=== PATIENT | male | born 1980 | race Caucasian/White ===

== ENCOUNTER 2023-01-02 14:29 | Outpatient (OUT) | payer OTHER, BC, SELFPAY ==
--- NOTE | 2023-01-02 | CONS_ITS ---
CONSULTATION DATE: ??01/02/2023 TO:? Dr. Asher CHIEF COMPLAINT:? Left buttock pain, left hip pain. HISTORY OF PRESENT ILLNESS:? Review of systems, past medical/surgical history were obtained and documented on the health questionnaire and is available upon request. This is a 42-year-old male who reports having pain starting approximately 1-2 weeks ago.? It occurred spontaneously and increased gradually to is present to state, where he complains of severe sharp, shooting pain starting his in left groin area, radiating to the left buttock area.? He states is increases with transitioning maneuvers and weight bearing maneuvers.? He feels most comfortable in the semi-recumbent position.? He denies any change in bowel and bladder habits or new sensorimotor changes in the lower extremities. EXAMINATION:? Notable for patient having no clinical radiculopathy or myelopathy involving the lower extremities.? Nothing to suggest lumbar facet loading pain clinically or SI joint dysfunction clinically.? He did appear to have an exquisitely positive left sided FABERs sign.? He also had significant myofascial spasm of the left gluteus medius muscle.? I could not appreciate any piriformis dysfunction on today?s visit. IMPRESSION:? Our impression is patient appears to have chronic pain secondary to left hip joint related pain clinically, possibly a labral tear; left gluteus medius and myofascial spasm.? RECOMMENDATIONS:? I have placed the patient on baclofen 10 mg pills, half a pill to one pill at h.s., ibuprofen 800 mg t.i.d. as tolerated, aquatic therapy, plain films of the left hip, as well as MRI of the left hip.? We have also recommended a trigger point injection to his left gluteus medius; of note, status post which his pain was reduced significantly.? As part of providing excellent, safe, comprehensive care, the following was completed at our patient's visit: 1. A medication reconciliation and review to ensure accurate knowledge of current/active medications, including asking our patients to inform us about any pwig-xoj-ufkxcoo medications or herbal remedies/nutritional supplements/alternative remedies. 2. A review to specifically ensure our patients have had annual screening for: elevated body mass index (BMI, see intake chart for exact total), tobacco use, screening for depression, and screening for unhealthy alcohol use.? When screening is concerning, patients are provided with education and the specific recommendation to discuss the concerning health issue and treatment options with their primary care provider. [place]
--- NOTE | 2023-01-02 | CONS_ITS ---
PROCEDURE DATE: ??01/02/2023 PROCEDURE:? Left sided trigger point injection left gluteus medius. PREOPERATIVE DIAGNOSIS:? Myofascial spasm of the left gluteus medius, left hip pain. POSTOPERATIVE DIAGNOSIS:? Myofascial spasm of the left gluteus medius, left hip pain. SOLUTION USED FOR INJECTION:? 2 mL of 2% lidocaine, 2 mL of 0.25% Marcaine, 40 mg of Kenalog, total of 5 mL and 2.5 mL used for injection. IMMEDIATE COMPLICATIONS:? None. PROCEDURE:? After informed consent was obtained from the patient, placed in the prone position. ?Skin overlying the area was prepped with alcohol.? A 22 gauge spinal needle was inserted over the area and directed towards the left gluteus medius.? After encountering same, patient had a positive twitch response, at which point we injected 2.5 mL of solution.? No indication of intravascular or intraneural needle tip placement or injection.? Patient reports reduction of pain post procedurally.?? MTDD
== END 2023-01-02 14:30 | disposition home or self-care (01) ==
LOC: PM 14:38
PROVIDERS: PCP Specialist; Visit Provider Anesthesiology Pain Medicine
DX: M62.838 Other muscle spasm (principal); M25.552 Pain in left hip; G89.29 Other chronic pain
CPT/HCPCS: 20552

== ENCOUNTER 2023-02-17 09:10 | Outpatient (OUT) | payer OTHER, BC, SELFPAY ==
[2023-02-17 09:30] LABS: Basophils Percent Auto 0.5 % (0.2-2.0); Eosinophils Absolute Auto 0.2 10^3/uL (0.0-0.7); Eosinophils Percent Auto 2.9 % (0.9-7.0); Hematocrit 44.9 % (42.0-54.0); Hemoglobin 15.1 g/dL (14.0-18.0); Immature Granulocytes Abs Auto 0.03 10^3/uL (0.00-0.03); Immature Granulocytes Pct Auto 0.4 % (0.0-0.5); Lymphocytes Absolute Auto 2.9 10^3/uL (1.2-3.8); Lymphocytes Percent Auto 34.9 % (20.5-60.0); Mean Corpuscular HGB Conc 33.6 g/dL (29.9-35.2); Mean Corpuscular Hemoglobin 30.2 pg (25.9-34.0); Mean Corpuscular Volume 89.8 fL (80.0-94.0); Mean Platelet Volume 10.7 fL (9.5-13.5); Monocytes Absolute Auto 0.4 10^3/uL (0.3-0.8); Monocytes Percent Auto 5.2 % (1.7-12.0); Neutrophils Absolute Auto 4.7 10^3/uL (1.4-6.5); Neutrophils Percent Auto 56.1 % (43.0-75.0); Platelet Count 243 10^3/uL (150-450); Red Cell Distribution Width 12.2 % (11.0-15.0); White Blood Count 8.4 10^3/uL (4.0-11.0)
[2023-02-17 09:54] LABS: Estimated Average Glucose 120 mg/dL; Glycohemoglobin A1C 5.8 % (4.5-6.2)
[2023-02-17 10:04] LABS: Alanine Aminotransferase 51 U/L (16-63); Albumin Globulin Ratio 0.9; Albumin Level 3.4 g/dL (3.4-5.0); Alkaline Phosphatase 81 U/L (46-116); Anion Gap 10.7; Aspartate Amino Transferase 21 U/L (15-37); BUN Creatinine Ratio 20.6; Bilirubin Direct 0.1 mg/dL (0.0-0.2); Bilirubin Total 0.6 mg/dL (0.2-1.0); Calcium 8.7 mg/dL (8.5-10.1); Carbon Dioxide 34.5 mmol/L (21.0-32.0); Chloride 104 mmol/L (98-107); Chol HDL Ratio 3.2; Cholesterol 168 mg/dL (<=200); Estimated GFR (African America >60 (>=60); Estimated GFR (Non-African Ame >60 (>=60); Globulin 3.7 g/dL; Glucose 105 mg/dL (74-106); HDL Cholesterol 53 mg/dL (40-60); LDL Cholesterol Calculated 102.8 mg/dL; Potassium 4.2 mmol/L (3.5-5.1); Sodium 145 mmol/L (136-145); Thyroid Stimulating Hormone 1.585 uIU/mL (0.358-3.740); Total Protein 7.1 g/dL (6.4-8.2); Triglycerides 61 mg/dL (<=150); VLDL CHOLESTEROL 12.2 mg/dL
[2023-02-17 11:11] LABS: Prostate Specific Antigen Scrn 1.13 ng/mL (<=4.00)
== END 2023-02-17 09:11 | disposition home or self-care (01) ==
PROVIDERS: PCP Specialist; Visit Provider Family Medicine
DX: Z00.00 Encounter for general adult medical examination without abnormal findings (principal); Z12.5 Encounter for screening for malignant neoplasm of prostate
CPT/HCPCS: 36415; 80048; 80061; 80076; 83036; 84443; 85025; G0103

== ENCOUNTER 2023-07-28 09:15 | Outpatient (OUT) | payer OTHER, SELFPAY ==
--- NOTE | 2023-07-28 | XR_ITS ---
The [place] [id number] Patient Name: ROLLY LANDA MRN: [id number] date: 1980 Sex: M Assigned Patient Location: [facility] Current Patient Location: [facility] Accession/Order Number: [id number] Exam Date: 07/28/2023 09:30 Report Date: 07/30/2023 10:11 At the request of: YANELI FISHER Procedure: XR lumbar spine 6V w bending EXAMINATION: XR lumbar spine 6V w bending HISTORY: low back pain COMPARISON: No relevant comparison available. FINDINGS: BONES: Mild degenerative facet arthropathy L4-5, L5-S1. No fracture, spondylolisthesis, bone lesion. No change in alignment during flexion and extension. DISC SPACES: Slight narrowing L5-S1. PARASPINOUS: Negative. No paraspinous abnormality is seen. OTHER: Negative. XR/XR lumbar spine 6V w bending IMPRESSION: 1. 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 Electronically authenticated by: JARON LOONEY Date: 07/30/2023 10:11
--- NOTE | 2023-07-28 | XR_ITS ---
The [address] [address] Patient Name: ROLLY LANDA MRN: [id number] date: 1980 Sex: M Assigned Patient Location: [facility] Current Patient Location: Accession/Order Number: [id number] Exam Date: 07/28/2023 09:30 Report Date: 07/30/2023 09:24 At the request of: YANELI FISHER Procedure: XR hip LT min 2V PROCEDURE: XR hip LT min 2V HISTORY: left hip pain COMPARISON: None. FINDINGS: BONES:No fracture, acute abnormality, or significant arthropathy. SOFT TISSUES:No visible soft tissue swelling. EFFUSION:None visible. OTHER: Negative. XR/XR hip LT min 2V IMPRESSION: 1. No acute bone abnormality or significant degenerative changes of the left hip. Electronically authenticated by: JARON LOONEY Date: 07/30/2023 09:24
--- OUTSIDE RECORDS SUMMARY | 2023-07-28 09:20 | XMS_ITS | CCD ---
Author Organization [facility] Care Team Providers Care Valet Cashier Name Role Phone ANANDA, DR CHANTELL Walter Primary Care Unavailable JENNIFER MACIAS Attending Unavailable JENNIFER MACIAS Consulting Unavailable JENNIFER MACIAS Admitting Unavailable REQUEST, NONE LISTED Admitting Unavaila ble ANANDA, DR CHANTELL Walter Primary Care Unavailable REQUEST, DR WALL LISTED Attending Unavaila ble REQUEST, NONE LISTED Consulting Unavaila sofi MALAVE, DR CHANTELL Walter Attending Unavailable ANANDA, DR CHANTELL Walter Consulting Unavailable ANANDA, DR CHANTELL Walter Primary Care Unavailable ANANDA, DR CHANTELL Walter Admitting Unavailable KELSI SILVA Attending Unavailable Problems Problem Classification Problem Date Documented Da te Episodic/Chronic Other screening for suspected conditions (not mental disorders or infectious disease) (1 source) Encounter for screening for malignant neoplasm of prostate; Translations: [ENC SCREEN MALIG NEOPLASM PROSTATE] Onset: 10-25-2020 Episodic Results Test Name Value Interpretation Reference Range Facil ity CBC AUTO DIFFon 10-20-2020 BASO # 0.0 103/ul Normal 0.0-0.1 [facility] Comment on above: Performed By: #### C BC #### [facility] [address], [place] [address] Sara Angie Basophils/100 WBC (Bld) 0.4 % Normal 0.2-2.0 [facility] Comment on above: Performed By: #### C BC #### [facility] [address], [place] [address] Sara Angie EO # 0.2 103/ul Normal 0.0-0.7 [facility] Comment on above: Performed By: #### C BC #### [facility] [address] [place] [id number] Sara Angie Eosinophils/100 WBC (Bld) 3.1 % Normal 0.9-7.0 [facility] Comment on above: Performed By: #### C BC #### [facility] [address] [place], [place] [id number] Sara Angie Erythrocyte distribution width (RBC) [Ratio] 12.8 % Normal 11.0-15.0 [facility] Comment on above: Performed By: #### C BC #### [facility] [address] [place], [place] [id number] Sara Angie Hematocrit (Bld) [Volume fraction] 44.8 % Normal 42.0-54.0 [facility] Comment on above: Performed By: #### C BC #### [facility] [address] [place], [place] [address] Sara Angie Hemoglobin (Bld) [Mass/Vol] 14.8 g/dL Normal 14.0-18.0 [facility] Comment on above: Performed By: #### C BC #### [facility] [address] [place] [address] Sara Angie IG # 0.02 10e3/ul Normal 0.00-0.03 [facility] Comment on above: Performed By: #### C BC #### [facility] [address] [place] [address] Sara Angie IG % 0.3 % Normal 0.0-0.5 [facility] Comment on above: Performed By: #### C BC #### [facility] [address] [place] [address] Sara Angie LYMPH # 2.5 103/ul Normal 1.2-3.8 [facility] Comment on above: Performed By: #### C BC #### [facility] [address] [place], [place] [address] Sara Angie Lymphocytes/100 WBC (Bld) 33.4 % Normal 20.5-60.0 [facility] Comment on above: Performed By: #### C BC #### [facility] [address] [place], [place] [address] Sara Angie MANUAL DIFF REQ NO Normal [facility] Comment on above: Performed By: #### C BC #### [facility] [address] [place], [place] [address] Sara Angie MCH (RBC) [Entitic mass] 29.2 pg Normal 25.9-34.0 [facility] Comment on above: Performed By: #### C BC #### [facility] [address] [place], [place] [address] Sara Adams MCHC (RBC) [Mass/Vol] 33.0 g/dL Normal 29.9-35.2 [facility] Comment on above: Performed By: #### C BC #### [facility] [address] [place], [place] [address] Saramalachi Adams MCV (RBC) [Entitic vol] 88.4 fL Normal 80.0-94.0 [facility] Comment on above: Performed By: #### C BC #### [facility] [address] [place], [place] [address] Saramalachi Adams MONO # 0.5 103/ul Normal 0.3-0.8 [facility] Comment on above: Performed By: #### C BC #### [facility] [address] [place], [place] [address] Sara Angie Monocytes/100 WBC (Bld) 7.0 % Normal 1.7-12.0 [facility] Comment on above: Performed By: #### C BC #### [facility] [address] [place], [place] [address] Saramalachi Duranen NEUT # 4.2 103/ul Normal 1.4-6.5 [facility] Comment on above: Performed By: #### C BC #### [facility] [address] [place], [place] [address] Saramalachi Adams Neutrophils/100 WBC (Bld) 55.8 % Normal 43.0-75.0 [facility] Comment on above: Performed By: #### C BC #### [facility] [address] [place], [place] [address] Sara Angie Platelet mean volume (Bld) [Entitic vol] 10.7 fL Normal 9.5-13.5 [facility] Comment on above: Performed By: #### C BC #### [facility] [address] [place], [place] [address] Sara Angie PLT 239 103/ul Normal 150-450 [facility] Comment on above: Performed By: #### C BC #### [facility] [address] [place] [phone] Sara Angie RBC 5.07 106/ul Normal 4.70-6.10 [facility] Comment on above: Performed By: #### C BC #### [facility] [address], [place] [address] Sara Angie WBC 7.5 103/ul Normal 4.0-11.0 [facility] Comment on above: Performed By: #### C BC #### [facility] [address], [place] [address] Saramalachi Adams GLYCOHEMOGLOBIN A1Con 2020 ADA RECOMMENDATION ADA THERAPEUTIC TARGET 6.0 - 7.0 ACTION SUGGESTED > 7.0 Normal [facility] Comment on above: Performed By: #### A 1C #### [facility] [address] [place], [place] [address] Sara Angie Glucose [Mass/Vol] 120 mg/dL Normal [facility] Comment on above: Performed By: #### A 1C #### [facility] [address] [place] [phone] Sara Angie HbA1c (Bld) [Mass fraction] 5.8 % Normal <=6.0 [facility] Comment on above: Performed By: #### A 1C #### [facility] [address] [place], [place] [address] Saramalachi Adams LIPID PROFILEon 10-20-2020 CHOL-HDL RATIO NORM SEE BELOW Normal [facility] Comment on above: Result Comment: 3.3 - 4.4 LOW RISK 4.4 - 7.1 AVERAGE RISK 7.1 - 11.0 MODERATE RISK >11.0 HIGH RISK Performed By: #### C MP, LIPID, PSASC #### [facility] [address] [place] [phone] Sara Angie Cholesterol [Mass/Vol] 166 mg/dL Normal <=200 [facility] Comment on above: Performed By: #### C MP, LIPID, PSASC #### [facility] [address] [place] [id number] Sara Angie Cholesterol in HDL [Mass/Vol] 46 mg/dL Normal [facility] Comment on above: Performed By: #### C MP, LIPID, PSASC #### [facility] [address] [place] [phone] Sara Angie Cholesterol in LDL [Mass/Vol] 104.6 mg/dL Normal [facility] Comment on above: Performed By: #### C MP, LIPID, PSASC #### [facility] [address] [place] [phone] Sara Angie Cholesterol.total/Cho lesterol in HDL [Mass ratio] 3.6 {ratio} Normal [facility] Comment on above: Performed By: #### C MP, LIPID, PSASC #### [facility] [address] [place] [address] Sara Angie HDL NORMAL > or = 60 mg/dl - LOW CARDIOVASCULAR RISK <40 mg/dl - HIGH CARDIOVASCULAR RISK Normal [facility] Comment on above: Performed By: #### C MP, LIPID, PSASC #### [facility] [address] [place] [address] Sara Angie LDL CALC NORMAL SEE BELOW Normal [facility] Comment on above: Result Comment: <100 mg/dl OPTIMAL 100 - 129 mg/dl NEAR OR ABOVE OPTIMAL 130 - 159 mg/dl BORDERLINE HIGH 160 - 189 mg/dl HIGH >190 mg/dl VERY HIGH Performed By: #### C MP, LIPID, PSASC #### [facility] [address] [place] [address] Sara Angie Triglyceride [Mass/Vol] 77 mg/dL Normal <=150 [facility] Comment on above: Performed By: #### C MP, LIPID, PSASC #### [facility] [address] [place] [phone] Sara Angie VLDL CALC 15.4 mg/dL Normal [facility] Comment on above: Performed By: #### C MP, LIPID, PSASC #### [facility] [address] [place] [address] Sara Angie PROF 14(COMP METB)on 021 Albumin [Mass/Vol] 3.4 g/dL Critically low 3.5-5.0 [facility] Comment on above: Performed By: #### C MP, LIPID, PSASC #### [facility] [address] [place] [phone] Sara Angie Albumin/Globulin [Mass ratio] 0.8 {ratio} Normal [facility] Comment on above: Performed By: #### C MP, LIPID, PSASC #### [facility] [address] [place] [phone] Sara Angie ALP [Catalytic activity/Vol] 80 U/L Normal 38-126 [facility] Comment on above: Performed By: #### C MP, LIPID, PSASC #### [facility] [address] [place] [phone] Sara Angie ALT [Catalytic activity/Vol] 55 U/L Normal 21-72 [facility] Comment on above: Performed By: #### C MP, LIPID, PSASC #### [facility] [address] [place] [address] Sara Angie Anion gap [Moles/Vol] 11.4 mmol/L Normal [facility] Comment on above: Performed By: #### C MP, LIPID, PSASC #### [facility] [address] [place], [place] [address] Sara Angie AST [Catalytic activity/Vol] 26 U/L Normal 17-59 [facility] Comment on above: Performed By: #### C MP, LIPID, PSASC #### [facility] [address] [place] [id number] Sara Angie Bilirubin [Mass/Vol] 0.5 mg/dL Normal 0.2-1.3 [facility] Comment on above: Performed By: #### C MP, LIPID, PSASC #### [facility] [address] [place] [address] Sara Angie Calcium [Mass/Vol] 9.1 mg/dL Normal 8.4-10.2 [facility] Comment on above: Performed By: #### C MP, LIPID, PSASC #### [facility] [address] [place] [address] Sara Angie Chloride [Moles/Vol] 106 mmol/L Normal 98-107 [facility] Comment on above: Performed By: #### C MP, LIPID, PSASC #### [facility] [address] [place] [address] Sara Angie CO2 [Moles/Vol] 30.9 mmol/L Critically high 22.0-30.0 [facility] Comment on above: Performed By: #### C MP, LIPID, PSASC #### [facility] [address] [place] [address] Sara Angie Creatinine [Mass/Vol] 0.95 mg/dL Normal 0.66-1.25 [facility] Comment on above: Performed By: #### C MP, LIPID, PSASC #### [facility] [address] [place] [address] Sara Angie EGFR-AF CROATIAN >60 Normal >=60 [facility] Comment on above: Performed By: #### C MP, LIPID, PSASC #### [facility] [address] [place] [address] Sara Angie EGFR-NON AF CROATIAN >60 Normal >=60 [facility] Comment on above: Performed By: #### C MP, LIPID, PSASC #### [facility] [address] [place] [address] Sara Angie Globulin (S) [Mass/Vol] 4.1 g/dL Normal [facility] Comment on above: Performed By: #### C MP, LIPID, PSASC #### [facility] [address] [place] [address] Sara Angie Glucose [Mass/Vol] 106 mg/dL Normal 74-106 [facility] Comment on above: Performed By: #### C MP, LIPID, PSASC #### [facility] [address] [place] [address] Sara Angie Potassium [Moles/Vol] 4.3 mmol/L Normal 3.4-5.0 [facility] Comment on above: Performed By: #### C MP, LIPID, PSASC #### [facility] [address] [place] [address] Sara Angie Protein [Mass/Vol] 7.5 g/dL Normal 6.1-8.2 [facility] Comment on above: Performed By: #### C MP, LIPID, PSASC #### [facility] [address], [place] [address] Sara Angie Sodium [Moles/Vol] 144 mmol/L Normal 137-145 [facility] Comment on above: Performed By: #### C MP, LIPID, PSASC #### [facility] [address], [place] [address] Sara Angie Urea nitrogen [Mass/Vol] 11.0 mg/dL Normal 9.0-20.0 [facility] Comment on above: Performed By: #### C MP, LIPID, PSASC #### [facility] [address] [place] [address] Sara Angie Urea nitrogen/Creatinine [Mass ratio] 11.6 mg/mg Normal [facility] Comment on above: Performed By: #### C MP, LIPID, PSASC #### [facility] [address], [place] [address] Sara Angie Encounters Encounter Date Encounter Type Care Provider Facility Start: 03-27-2023 End: 03-27-2023 ambulatory KELSI SILVA Not Available Start: 10-25-2020 Encounter for genera l adult medical examination without abnormal findings DR CHANTELL MALAEV [facility] Start: 10-20-2020 End: 10-21-[address] CHANTELL MALAVE Facility:[facility] Start: 10-20-2020 End: 10-21-2020 Encounter for general adult medical examination without abnormal findings DR CHANTELL MALAVE Facility:[facility] Start: 08-19-2020 End: 08-20-[address] CHANTELL MALAVE Facility:[facility] Start: 07-27-2020 End: 07-28-[address] WALL LISTED REQUEST Facility:[facility] Procedures Date Procedure Procedure Detail Performing Clinician Start: 10-20-[address] CHANTELL BERNARD Comment on above: Performed By: #### C MP, LIPID, PSASC #### [facility] [address], [place] [address] Sara Angie Payers Date Payer Category Payer Unknown [id number] 1980 Unknown [id number] 1959 Self-pay 1959 Unknown [id number] Unknown [id number] [id number] Unknown [id number] Summary Purpose Family History No Family History Records FoundNo Family History Records Found Advance Directives No Advanced Directives Records FoundNo Advanced Directives Records Found Additional Source Comments (unrecognized sect ion and content) No Status Records FoundNo Status Records Found INFORMATION SOURCE (unrecogn ized section and content) DATE CREATED AUTHOR 10/26/2020 [facility] DATE CREATED AUTHOR 'S ORGANIZ ATION 03/29/2023 [facility] EPIC FOR RECORDS PERTAINING TO PATIENTS WHO ARE OR HAVE BEEN ENROLLED IN A CHEMICAL DEPENDENCY/SUBSTANCEABUSE PROGRAM, SOME INFORMATION MAY BE OMITTED. This clinical summary was aggregated from multiple sources. Caution should be exercised in using it in the provision of clinical care. This summary normalizes information from multiple sources, and as a consequence, information in this document may materially change the coding, format and clinical context of patient data. In addition, data may be omitted in some cases. CLINICAL DECISIONS SHOULD BE BASED ON THE PRIMARY CLINICAL RECORDS. [facility] [employer] provides no warranty or guarantee of the accuracy or completeness of information in this document.
== END 2023-07-28 09:16 | disposition home or self-care (01) ==
LOC: RAD 09:17
PROVIDERS: PCP Family Medicine; Visit Provider Anesthesiology Pain Medicine
DX: M54.50 Low back pain, unspecified (principal); M25.552 Pain in left hip
CPT/HCPCS: 72114; 73502

== ENCOUNTER 2023-07-31 14:49 | Outpatient (OUT) | payer OTHER, SELFPAY ==
--- NOTE | 2023-07-31 | CONS_ITS ---
CONSULTATION DATE: 07/31/2023 TO: Orville Asher M.D. HISTORY: Patient returns today complaining of pain in his left hamstring area, just above his knee. He describes the pain as being 3-4/10 pain, described as an annoying, severe, tingling type of pain, increased apparently when standing and at times walking. Feels most comfortable sitting. Denies any change in bowel and bladder habits, but he reports tingling and numbness of his left hamstring area. CURRENT MEDICATIONS: Include ibuprofen 800 mg daily p.r.n. and baclofen 10 mg daily p.r.n. EXAMINATION: Notable for patient having some very mild weakness of his left extensor hallucis. Straight leg raise was negative. Equivocally depressed left Achilles reflex. No signs consistent with myelopathy. IMPRESSION: Our impression is patient with chronic pain secondary to L5 radicular signs. RECOMMENDATIONS: I have recommended he initiate Zonegran 50 mg, one up to three pills at h.s. Will titrate this over a period of three weeks. Also, physical therapy for a home exercise program. Will follow up with the patient via telephone in one week?s time or sooner if needed. As part of providing excellent, safe, comprehensive care, the following was completed at our patient's visit: 1. A medication reconciliation and review to ensure accurate knowledge of current/active medications, including asking our patients to inform us about any vnuk-urv-tnkegac medications or herbal remedies/nutritional supplements/alternative remedies. 2. A review to specifically ensure our patients have had annual screening for: elevated body mass index (BMI, see intake chart for exact total), tobacco use, screening for depression, and screening for unhealthy alcohol use. When screening is concerning, patients are provided with education and the specific recommendation to discuss the concerning health issue and treatment options with their primary care provider. [place]
== END 2023-07-31 14:50 | disposition home or self-care (01) ==
PROVIDERS: PCP Family Medicine; Visit Provider Anesthesiology Pain Medicine
DX: M54.16 Radiculopathy, lumbar region (principal); M54.50 Low back pain, unspecified
CPT/HCPCS: G0463

== ENCOUNTER 2023-10-25 14:43 | Outpatient (OUT) | payer OTHER, SELFPAY ==
--- NOTE | 2023-10-25 | XR_ITS ---
The [address] [address] Patient Name: ROLLY LANDA MRN: [id number] date: 1980 Sex: M Assigned Patient Location: Current Patient Location: Accession/Order Number: [id number] Exam Date: 10/25/2023 14:52 Report Date: 10/25/2023 15:49 At the request of: UZIEL QUINTANILLA Procedure: XR foot MANJINDER min 3V EXAMINATION: XR foot MANJINDER min 3V HISTORY: BILATERAL FOOT PAIN COMPARISON: No relevant comparison available. FINDINGS: RIGHT FINDINGS: BONES: No acute fracture or dislocation. Moderate enthesopathic spurring of the calcaneus at the Achilles and plantar insertions. Degenerative changes with mid foot with marginal osteophyte formation SOFT TISSUES: Negative. No visible soft tissue swelling. OTHER: Negative. LEFT FINDINGS: BONES: No acute fracture or dislocation. Moderate enthesopathic spurring of the calcaneus at the Achilles and plantar insertions. Degenerative changes with mid foot with marginal osteophyte formation SOFT TISSUES: Negative. No visible soft tissue swelling. OTHER: Negative. XR/XR foot MANJINDER min 3V IMPRESSION: Moderate bilateral calcaneal enthesopathy Electronically authenticated by: FAVIO PERES Date: 10/25/2023 15:49
== END 2023-10-25 14:44 | disposition home or self-care (01) ==
LOC: EC 14:43
PROVIDERS: PCP Family Medicine; Visit Provider Physician Assistant
DX: M79.672 Pain in left foot (principal); M79.671 Pain in right foot
CPT/HCPCS: 73630

== ENCOUNTER 2023-10-29 10:17 | Outpatient (RCR) | payer OTHER, SELFPAY | END 2023-12-14 17:19 | disposition home or self-care (01) | LOC: PT 10:17 | PROVIDERS: PCP Family Medicine; Visit Provider Physician Assistant | DX: M79.672 Pain in left foot (principal); M76.62 Achilles tendinitis, left leg; M76.61 Achilles tendinitis, right leg; M24.575 Contracture, left foot; M24.574 Contracture, right foot | CPT/HCPCS: 20560; 20561; 97026; 97110; 97112; 97140; 97162 ==

== ENCOUNTER 2023-12-17 12:51 | Outpatient (OUT) | payer OTHER, SELFPAY ==
--- NOTE | 2023-12-17 13:00 | XR_ITS ---
The [address] [address] Patient Name: ROLLY LANDA MRN: [id number] date: 1980 Sex: M Assigned Patient Location: [facility] Current Patient Location: Accession/Order Number: [id number] Exam Date: 12/17/2023 13:15 Report Date: 12/18/2023 11:02 At the request of: YANELI FISHER Procedure: XR knee LT 4V PROCEDURE: XR knee LT 4V HISTORY: Left Knee Pain COMPARISON: None. FINDINGS: BONES:Degenerative enthesophytes along inferior margin of patella at patellar tendon insertion which may be fractured. SOFT TISSUES:No visible soft tissue swelling. EFFUSION:None visible. OTHER: Negative. XR/XR knee LT 4V IMPRESSION: 1. Patient's tender lump corresponds to a degenerative enthesophyte along the anterior inferior margin of the patella. There is a thin lucency through it which may represent a fracture line (history describes no known injury), or this could represent summation artifact from a developmental cleft within the enthesophyte. 2. Otherwise unremarkable knee. Electronically authenticated by: JARON LOONEY Date: 12/18/2023 11:02
--- OUTSIDE RECORDS SUMMARY | 2023-12-17 13:18 | XMS_ITS | CCD ---
Author Organization [facility] Care Team Providers Care Bicycle Repairman Name Role Phone ANANDA, DR CHANTELL Walter Primary Care Unavailable JENNIFER MACIAS Attending Unavailable JENNIFER MACIAS Consulting Unavailable JENNIFER MACIAS Admitting Unavailable REQUEST, NONE LISTED Admitting Unavaila ble ANANDA, DR CHANTELL Walter Primary Care Unavailable REQUEST, DR WALL LISTED Attending Unavaila ble REQUEST, NONE LISTED Consulting Unavaila ble ANANDA, DR CHANTELL Walter Attending Unavailable ANANDA, DR [...] 10-20-2020 BASO # 0.0 103/ul Normal 0.0-0.1 [facility] Comment on above: Performed By: #### C BC #### [facility] [address] [place], [place] [address] Sara Angie Basophils/100 WBC (Bld) 0.4 % Normal 0.2-2.0 [facility] Comment on above: Performed By: #### C BC #### [facility] [address] [place], [place] [address] Sara Angie EO # 0.2 103/ul Normal 0.0-0.7 [facility] Comment on above: Performed By: #### C BC #### [facility] [address] [place] [id number] Sara Angie Eosinophils/100 WBC (Bld) 3.1 % Normal 0.9-7.0 [facility] Comment on above: Performed By: #### C BC #### [facility] [address] [place] [address] Sara Angie Erythrocyte distribution width (RBC) [Ratio] 12.8 % Normal 11.0-15.0 [facility] Comment on above: Performed By: #### C BC #### [facility] [address] [place] [address] Sara Angie Hematocrit (Bld) [Volume fraction] 44.8 % Normal 42.0-54.0 [facility] Comment on above: Performed By: #### C BC #### [facility] [address] [place] [address] Sara Angie Hemoglobin (Bld) [Mass/Vol] 14.8 g/dL Normal 14.0-18.0 [facility] Comment on above: Performed By: #### C BC #### [facility] [address] [place] [address] Sara Angie IG # 0.02 10e3/ul Normal 0.00-0.03 [facility] Comment on above: Performed By: #### C BC #### [facility] [address] [place] [address] Sara Angie IG % 0.3 % Normal 0.0-0.5 [facility] Comment on above: Performed By: #### C BC #### [facility] [address] [place] [address] Sara Angie LYMPH # 2.5 103/ul Normal 1.2-3.8 [facility] Comment on above: Performed By: #### C BC #### [facility] [address] [place] [address] Sara Angie Lymphocytes/100 WBC (Bld) 33.4 % Normal 20.5-60.0 [facility] Comment on above: Performed By: #### C BC #### [facility] [address] [place], [place] [id number] Sara Angie MANUAL DIFF REQ NO Normal [facility] Comment on above: Performed By: #### C BC #### [facility] [address] [place] [address] Sara Angie MCH (RBC) [Entitic mass] 29.2 pg Normal 25.9-34.0 [facility] Comment on above: Performed By: #### C BC #### [facility] [address] [place] [address] Sara Adams MCHC (RBC) [Mass/Vol] 33.0 g/dL Normal 29.9-35.2 [facility] Comment on above: Performed By: #### C BC #### [facility] [address] [place] [address] Sara Adams MCV (RBC) [Entitic vol] 88.4 fL Normal 80.0-94.0 [facility] Comment on above: Performed By: #### C BC #### [facility] [address] [place] [address] aSra Adams MONO # 0.5 103/ul Normal 0.3-0.8 [facility] Comment on above: Performed By: #### C BC #### [facility] [address] [place] [address] Sara Adams Monocytes/100 WBC (Bld) 7.0 % Normal 1.7-12.0 [facility] Comment on above: Performed By: #### C BC #### [facility] [address] [place] [address] Sara Adams NEUT # 4.2 103/ul Normal 1.4-6.5 [facility] Comment on above: Performed By: #### C BC #### [facility] [address] [place] [address] Sara Adams Neutrophils/100 WBC (Bld) 55.8 % Normal 43.0-75.0 [facility] Comment on above: Performed By: #### C BC #### [facility] [address] [place], [place] [id number] Saramalachi Adams Platelet mean volume (Bld) [Entitic vol] 10.7 fL Normal 9.5-13.5 [facility] Comment on above: Performed By: #### C BC #### [facility] [address] [place] [address] Sara Angie PLT 239 103/ul Normal 150-450 [facility] Comment on above: Performed By: #### C BC #### [facility] [address] [place] [id number] Sara Adams RBC 5.07 106/ul Normal 4.70-6.10 [facility] Comment on above: Performed By: #### C BC #### [facility] [address] [place], [place] [address] Sara Adams WBC 7.5 103/ul Normal 4.0-11.0 [facility] Comment on above: Performed By: #### C BC #### [facility] [address] [place], [place] [address] Sara Adams GLYCOHEMOGLOBIN A1Con 2020 ADA RECOMMENDATION ADA THERAPEUTIC TARGET 6.0 - 7.0 ACTION SUGGESTED > 7.0 Normal [facility] Comment on above: Performed By: #### A 1C #### [facility] [address] [place], [place] [id number] Sara Adams Glucose [Mass/Vol] 120 mg/dL Normal [facility] Comment on above: Performed By: #### A 1C #### [facility] [address] [place] [id number] Sara Adams HbA1c (Bld) [Mass fraction] 5.8 % Normal <=6.0 [facility] Comment on above: Performed By: #### A 1C #### [facility] [address] [place], [place] [id number] Sara Adams LIPID PROFILEon 10-20-2020 CHOL-HDL RATIO NORM SEE BELOW Normal [facility] Comment on above: Result Comment: 3.3 - 4.4 LOW RISK 4.4 - 7.1 AVERAGE RISK 7.1 - 11.0 MODERATE RISK >11.0 HIGH RISK Performed By: #### C MP, LIPID, PSASC #### [facility] [address] [place], [place] [id number] Sara Adams Cholesterol [Mass/Vol] 166 mg/dL Normal <=200 [facility] Comment on above: Performed By: #### C MP, LIPID, PSASC #### [facility] [address] [place] [address] Sara Angie Cholesterol in HDL [Mass/Vol] 46 mg/dL Normal [facility] Comment on above: Performed By: #### C MP, LIPID, PSASC #### [facility] [address] [place] [id number] Sraa Angie Cholesterol in LDL [Mass/Vol] 104.6 mg/dL Normal [facility] Comment on above: Performed By: #### C MP, LIPID, PSASC #### [facility] [address] [place] [id number] Sara Angie Cholesterol.total/Cho lesterol in HDL [Mass ratio] 3.6 {ratio} Normal [facility] Comment on above: Performed By: #### C MP, LIPID, PSASC #### [facility] [address] [place] [id number] Sara Angie HDL NORMAL > or = 60 mg/dl - LOW CARDIOVASCULAR RISK <40 mg/dl - HIGH CARDIOVASCULAR RISK Normal [facility] Comment on above: Performed By: #### C MP, LIPID, PSASC #### [facility] [address] [place] [address] Sara Angie LDL CALC NORMAL SEE BELOW Normal [facility] Comment on above: Result Comment: <100 mg/dl OPTIMAL 100 - 129 mg/dl NEAR OR ABOVE OPTIMAL 130 - 159 mg/dl BORDERLINE HIGH 160 - 189 mg/dl HIGH >190 mg/dl VERY HIGH Performed By: #### C MP, LIPID, PSASC #### [facility] [address] [place] [address] Sara Angie Triglyceride [Mass/Vol] 77 mg/dL Normal <=150 [facility] Comment on above: Performed By: #### C MP, LIPID, PSASC #### [facility] [address] [place] [phone] Sara Angie VLDL CALC 15.4 mg/dL Normal [facility] Comment on above: Performed By: #### C MP, LIPID, PSASC #### [facility] [address] [place] [id number] Sara Angie PROF 14(COMP METB)on 06-23-2 021 Albumin [Mass/Vol] 3.4 g/dL Critically low 3.5-5.0 [facility] Comment on above: Performed By: #### C MP, LIPID, PSASC #### [facility] [address] [place] [id number] Sara Angie Albumin/Globulin [Mass ratio] 0.8 {ratio} Normal [facility] Comment on above: Performed By: #### C MP, LIPID, PSASC #### [facility] [address] [place] [id number] Sara Angie ALP [Catalytic activity/Vol] 80 U/L Normal 38-126 [facility] Comment on above: Performed By: #### C MP, LIPID, PSASC #### [facility] [address] [place] [address] Sara Angie ALT [Catalytic activity/Vol] 55 U/L Normal 21-72 [facility] Comment on above: Performed By: #### C MP, LIPID, PSASC #### [facility] [address] [place] [address] Sara Angie Anion gap [Moles/Vol] 11.4 mmol/L Normal [facility] Comment on above: Performed By: #### C MP, LIPID, PSASC #### [facility] [address] [place] [address] Sara Angie AST [Catalytic activity/Vol] 26 U/L Normal 17-59 [facility] Comment on above: Performed By: #### C MP, LIPID, PSASC #### [facility] [address] [place] [address] Sara Angie Bilirubin [Mass/Vol] 0.5 mg/dL Normal 0.2-1.3 [facility] Comment on above: Performed By: #### C MP, LIPID, PSASC #### [facility] [address] [place] [id number] Sara Angie Calcium [Mass/Vol] 9.1 mg/dL Normal 8.4-10.2 [facility] Comment on above: Performed By: #### C MP, LIPID, PSASC #### [facility] [address] [place] [address] Sara Angie Chloride [Moles/Vol] 106 mmol/L Normal 98-107 [facility] Comment on above: Performed By: #### C MP, LIPID, PSASC #### [facility] [address] [place] [address] Sara Angie CO2 [Moles/Vol] 30.9 mmol/L Critically high 22.0-30.0 [facility] Comment on above: Performed By: #### C MP, LIPID, PSASC #### [facility] [address] [place] [address] Sara Angie Creatinine [Mass/Vol] 0.95 mg/dL Normal 0.66-1.25 [facility] Comment on above: Performed By: #### C MP, LIPID, PSASC #### [facility] [address] [place] [address] Sara Angie EGFR-AF GHANAIAN >60 Normal >=60 [facility] Comment on above: Performed By: #### C MP, LIPID, PSASC #### [facility] [address] [place] [address] Sara Angie EGFR-NON AF GHANAIAN >60 Normal >=60 [facility] Comment on above: Performed By: #### C MP, LIPID, PSASC #### [facility] [address] [place] [address] Sara Angie Globulin (S) [Mass/Vol] 4.1 g/dL Normal [facility] Comment on above: Performed By: #### C MP, LIPID, PSASC #### [facility] [address] [place] [address] Sara Angie Glucose [Mass/Vol] 106 mg/dL Normal 74-106 [facility] Comment on above: Performed By: #### C MP, LIPID, PSASC #### [facility] [address] [place] [address] Sara Angie Potassium [Moles/Vol] 4.3 mmol/L Normal 3.4-5.0 [facility] Comment on above: Performed By: #### C MP, LIPID, PSASC #### [facility] [address] [place], [place] [address] Sara Angie Protein [Mass/Vol] 7.5 g/dL Normal 6.1-8.2 [facility] Comment on above: Performed By: #### C MP, LIPID, PSASC #### [facility] [address] [place], [place] [address] Sara Angie Sodium [Moles/Vol] 144 mmol/L Normal 137-145 [facility] Comment on above: Performed By: #### C MP, LIPID, PSASC #### [facility] [address] [place], [place] [address] Sara Angie Urea nitrogen [Mass/Vol] 11.0 mg/dL Normal 9.0-20.0 [facility] Comment on above: Performed By: #### C MP, LIPID, PSASC #### [facility] [address] [place], [place] [address] Sara Angie Urea nitrogen/Creatinine [Mass ratio] 11.6 mg/mg Normal [facility] Comment on above: Performed By: #### C MP, LIPID, PSASC #### [facility] [address] [place], [place] [address] Sara Angie Encounters Encounter Date Encounter Type Care Provider Facility Start: 03-27-2023 End: 03-27-2023 ambulatory KELSI SILVA Not Available Start: 10-25-2020 Encounter for genera l adult medical examination without abnormal findings DR CHANTELL MALAVE [facility] Start: 10-20-2020 End: 10-21-[address] [...] By: #### C MP, LIPID, PSASC #### [facility] [address] [place], [place] [address] Sara Adams Payers Date Payer Category Payer Unknown [id number] [id number] [id number] 1980 Unknown [id number] 1959 Self-pay 1959 Unknown [id number] Unknown [id number] 2.16.84 [id number] Unknown [id number] [id number] [id number] Summary Purpose Family History No Family History Records FoundNo Family History Records Found Advance Directives No Advanced Directives Records FoundNo Advanced Directives Records Found Additional Source Comments (unrecognized sect ion and content) No Status Records FoundNo Status Records Found INFORMATION SOURCE (unrecogn ized section and content) DATE CREATED AUTHOR 10/26/2020 [facility] DATE CREATED AUTHOR AUTHOR'S ORGANIZ ATION 03/29/2023 [facility] EPIC FOR RECORDS PERTAINING TO [...] BE BASED ON THE PRIMARY CLINICAL RECORDS. [facility] [employer] provides no warranty or guarantee of the accuracy or completeness of information in this document.
== END 2023-12-17 12:52 | disposition home or self-care (01) ==
LOC: RAD 12:54
PROVIDERS: PCP Family Medicine; Visit Provider Anesthesiology Pain Medicine
DX: M25.562 Pain in left knee (principal)
CPT/HCPCS: 73564

== ENCOUNTER 2023-12-18 15:10 | Outpatient (OUT) | payer OTHER, SELFPAY ==
--- NOTE | 2023-12-18 | CONS_ITS ---
PROCEDURE DATE: 12/18/2023 PROCEDURE: Left knee joint injection, infrapatellar area. PREOPERATIVE DIAGNOSIS: Left knee pain secondary to enthesopathy. POSTOPERATIVE DIAGNOSIS: Left knee pain secondary to enthesopathy. SOLUTION USED FOR INJECTION: 2 mL of 2% lidocaine, 2 mL of 0.25% Marcaine and 40 mg of Kenalog, total of 5 mL, and 2 mL used for the injection. IMMEDIATE COMPLICATIONS: None. PROCEDURE: After informed consent was obtained from the patient, placed in the supine position with the left knee flexed. The overlying area was prepped with alcohol. A 25 gauge, 1 ?? needle was inserted into the area over the infrapatellar area. Needle advanced until the area was encountered. No indication of intravascular or intraneural needle tip placement. 2 mL of solution was injection. Post procedure, needle was removed. Patient reports a marked reduction in pain symptoms. [place]
== END 2023-12-18 15:11 | disposition home or self-care (01) ==
LOC: PM 15:10
PROVIDERS: PCP Family Medicine; Visit Provider Anesthesiology Pain Medicine
DX: M25.562 Pain in left knee (principal)
CPT/HCPCS: 20610

== ENCOUNTER 2024-02-28 17:47 | Emergency (ER) | payer OTHER, SELFPAY ==
--- OUTSIDE RECORDS SUMMARY | 2024-02-28 17:54 | XMS_ITS | CCD ---
Author Organization [facility] Care Team Providers Care Juvenile Detention Officer Name Role Phone DR CHANTELL MALAVE Primary Care Unavailable JENNIFER MACIAS Attending Unavailable JENNIFER MACIAS Consulting Unavailable JENNIFER MACIAS Admitting Unavailable REQUEST, DR WALL LISTED Admitting Unavaila ble MALAVE, DR CHANTELL Walter Primary Care Unavailable REQUEST, DR WALL LISTED Attending Unavaila ble REQUEST, DR WALL LISTED Consulting Unavaila ble MALAVE, DR CHANTELL Walter Attending Unavailable MALAVE, DR CHANTELL Walter Consulting Unavailable ANANDA, DR [...] 10-20-2020 BASO # 0.0 103/ul Normal 0.0-0.1 [facility] Comment on above: Performed By: #### C BC #### [facility] [address], [place] [address] Sara Angie Basophils/100 WBC (Bld) 0.4 % Normal 0.2-2.0 [facility] Comment on above: Performed By: #### C BC #### [facility] [address], [place] [address] Sara Angie EO # 0.2 103/ul Normal 0.0-0.7 [facility] Comment on above: Performed By: #### C BC #### [facility] [address], [place] [address] Sara Angie Eosinophils/100 WBC (Bld) 3.1 % Normal 0.9-7.0 [facility] Comment on above: Performed By: #### C BC #### [facility] [address] [place] [address] Sara Angie Erythrocyte distribution width (RBC) [Ratio] 12.8 % Normal 11.0-15.0 [facility] Comment on above: Performed By: #### C BC #### [facility] [address] [place] [address] Sara Angie Hematocrit (Bld) [Volume fraction] 44.8 % Normal 42.0-54.0 [facility] Comment on above: Performed By: #### C BC #### [facility] [address] [place] [address] Sara Angie Hemoglobin (Bld) [Mass/Vol] 14.8 g/dL Normal 14.0-18.0 [facility] Comment on above: Performed By: #### C BC #### [facility] [address] [place] [address] Sara Angie IG # 0.02 10e3/ul Normal 0.00-0.03 [facility] Comment on above: Performed By: #### C BC #### [facility] [address] [place] [address] Sara Angie IG % 0.3 % Normal 0.0-0.5 [facility] Comment on above: Performed By: #### C BC #### [facility] [address] [place] [address] Sara Angie LYMPH # 2.5 103/ul Normal 1.2-3.8 [facility] Comment on above: Performed By: #### C BC #### [facility] [address] [place], [place] [id number] Sara Angie Lymphocytes/100 WBC (Bld) 33.4 % Normal 20.5-60.0 [facility] Comment on above: Performed By: #### C BC #### [facility] [address] [place] [address] Sara Angie MANUAL DIFF REQ NO Normal [facility] Comment on above: Performed By: #### C BC #### [facility] [address] [place] [address] Sara Adams MCH (RBC) [Entitic mass] 29.2 pg Normal 25.9-34.0 [facility] Comment on above: Performed By: #### C BC #### [facility] [address] [place] [address] Sara Adams MCHC (RBC) [Mass/Vol] 33.0 g/dL Normal 29.9-35.2 [facility] Comment on above: Performed By: #### C BC #### [facility] [address] [place] [address] Saramaalchi Adams MCV (RBC) [Entitic vol] 88.4 fL Normal 80.0-94.0 [facility] Comment on above: Performed By: #### C BC #### [facility] [address] [place] [address] Sara Adams MONO # 0.5 103/ul Normal 0.3-0.8 [facility] Comment on above: Performed By: #### C BC #### [facility] [address] [place] [address] Sara Adams Monocytes/100 WBC (Bld) 7.0 % Normal 1.7-12.0 [facility] Comment on above: Performed By: #### C BC #### [facility] [address] [place] [address] Sara Adams NEUT # 4.2 103/ul Normal 1.4-6.5 [facility] Comment on above: Performed By: #### C BC #### [facility] [address] [place] [address] Sara Angie Neutrophils/100 WBC (Bld) 55.8 % Normal 43.0-75.0 [facility] Comment on above: Performed By: #### C BC #### [facility] [address] [place], [place] [id number] Sara Angie Platelet mean volume (Bld) [Entitic vol] 10.7 fL Normal 9.5-13.5 [facility] Comment on above: Performed By: #### C BC #### [facility] [address] [place] [address] Saramalachi Duranen PLT 239 103/ul Normal 150-450 [facility] Comment on above: Performed By: #### C BC #### [facility] [address] [id number] Sara Duranen RBC 5.07 106/ul Normal 4.70-6.10 [facility] Comment on above: Performed By: #### C BC #### [facility] [address] [id number] Saramalachi Duranen WBC 7.5 103/ul Normal 4.0-11.0 [facility] Comment on above: Performed By: #### C BC #### [facility] [address] [id number] Sara Adams GLYCOHEMOGLOBIN A1Con 2020 ADA RECOMMENDATION ADA THERAPEUTIC TARGET 6.0 - 7.0 ACTION SUGGESTED > 7.0 Normal [facility] Comment on above: Performed By: #### A 1C #### [facility] [address] [id number] Sara Adams Glucose [Mass/Vol] 120 mg/dL Normal [facility] Comment on above: Performed By: #### A 1C #### [facility] [address] [place], [place] [phone] Sara Adams HbA1c (Bld) [Mass fraction] 5.8 % Normal <=6.0 [facility] Comment on above: Performed By: #### A 1C #### [facility] [address] [place], [place] [phone] Sara Adams LIPID PROFILEon 10-20-2020 CHOL-HDL RATIO NORM SEE BELOW Normal [facility] Comment on above: Result Comment: 3.3 - 4.4 LOW RISK 4.4 - 7.1 AVERAGE RISK 7.1 - 11.0 MODERATE RISK >11.0 HIGH RISK Performed By: #### C MP, LIPID, PSASC #### [facility] [address] [id number] Sara Angie Cholesterol [Mass/Vol] 166 mg/dL Normal <=200 [facility] Comment on above: Performed By: #### C MP, LIPID, PSASC #### [facility] [address], [place] [address] Sara Angie Cholesterol in HDL [Mass/Vol] 46 mg/dL Normal [facility] Comment on above: Performed By: #### C MP, LIPID, PSASC #### [facility] [address], [place] [address] Sara Angie Cholesterol in LDL [Mass/Vol] 104.6 mg/dL Normal [facility] Comment on above: Performed By: #### C MP, LIPID, PSASC #### [facility] [address], [place] [address] Sara Angie Cholesterol.total/Cho lesterol in HDL [Mass ratio] 3.6 {ratio} Normal [facility] Comment on above: Performed By: #### C MP, LIPID, PSASC #### [facility] [address], [place] [address] Sara Angie HDL NORMAL > or = 60 mg/dl - LOW CARDIOVASCULAR RISK <40 mg/dl - HIGH CARDIOVASCULAR RISK Normal [facility] Comment on above: Performed By: #### C MP, LIPID, PSASC #### [facility] [address] [id number] Sara Angie LDL CALC NORMAL SEE BELOW Normal [facility] Comment on above: Result Comment: <100 mg/dl OPTIMAL 100 - 129 mg/dl NEAR OR ABOVE OPTIMAL 130 - 159 mg/dl BORDERLINE HIGH 160 - 189 mg/dl HIGH >190 mg/dl VERY HIGH Performed By: #### C MP, LIPID, PSASC #### [facility] [address], [place] [address] Sara Angie Triglyceride [Mass/Vol] 77 mg/dL Normal <=150 [facility] Comment on above: Performed By: #### C MP, LIPID, PSASC #### [facility] [address] [phone] Sara Angie VLDL CALC 15.4 mg/dL Normal [facility] Comment on above: Performed By: #### C MP, LIPID, PSASC #### [facility] [address] [phone] Sara Angie PROF 14(COMP METB)on 021 Albumin [Mass/Vol] 3.4 g/dL Critically low 3.5-5.0 [facility] Comment on above: Performed By: #### C MP, LIPID, PSASC #### [facility] [address] [phone] Sara Angie Albumin/Globulin [Mass ratio] 0.8 {ratio} Normal [facility] Comment on above: Performed By: #### C MP, LIPID, PSASC #### [facility] [address] [address] Sara Angie ALP [Catalytic activity/Vol] 80 U/L Normal 38-126 [facility] Comment on above: Performed By: #### C MP, LIPID, PSASC #### [facility] [address] [address] Sara Angie ALT [Catalytic activity/Vol] 55 U/L Normal 21-72 [facility] Comment on above: Performed By: #### C MP, LIPID, PSASC #### [facility] [address] [address] Sara Angie Anion gap [Moles/Vol] 11.4 mmol/L Normal [facility] Comment on above: Performed By: #### C MP, LIPID, PSASC #### [facility] [address] [address] Sara Angie AST [Catalytic activity/Vol] 26 U/L Normal 17-59 [facility] Comment on above: Performed By: #### C MP, LIPID, PSASC #### [facility] [address] [address] Sara Angie Bilirubin [Mass/Vol] 0.5 mg/dL Normal 0.2-1.3 [facility] Comment on above: Performed By: #### C MP, LIPID, PSASC #### [facility] [address] [phone] Sara Angie Calcium [Mass/Vol] 9.1 mg/dL Normal 8.4-10.2 [facility] Comment on above: Performed By: #### C MP, LIPID, PSASC #### [facility] [address] [phone] Sara Angie Chloride [Moles/Vol] 106 mmol/L Normal 98-107 [facility] Comment on above: Performed By: #### C MP, LIPID, PSASC #### [facility] [address] [phone] Sara Angie CO2 [Moles/Vol] 30.9 mmol/L Critically high 22.0-30.0 [facility] Comment on above: Performed By: #### C MP, LIPID, PSASC #### [facility] [address] [address] Sara Angie Creatinine [Mass/Vol] 0.95 mg/dL Normal 0.66-1.25 [facility] Comment on above: Performed By: #### C MP, LIPID, PSASC #### [facility] [address] [place] [address] Sara Angie EGFR-AF BRAZILIAN >60 Normal >=60 [facility] Comment on above: Performed By: #### C MP, LIPID, PSASC #### [facility] [address] [address] Sara Angie EGFR-NON AF BRAZILIAN >60 Normal >=60 [facility] Comment on above: Performed By: #### C MP, LIPID, PSASC #### [facility] [address] [place] [address] Sara Angie Globulin (S) [Mass/Vol] 4.1 g/dL Normal [facility] Comment on above: Performed By: #### C MP, LIPID, PSASC #### [facility] [address] [place] [address] Sara Angie Glucose [Mass/Vol] 106 mg/dL Normal 74-[address] [facility] Comment on above: Performed By: #### C MP, LIPID, PSASC #### [facility] [address] [place] [address] Sara Angie Potassium [Moles/Vol] 4.3 mmol/L Normal 3.4-5.0 [facility] Comment on above: Performed By: #### C MP, LIPID, PSASC #### [facility] [address], [place] [address] Sara Angie Protein [Mass/Vol] 7.5 g/dL Normal 6.1-8.2 [facility] Comment on above: Performed By: #### C MP, LIPID, PSASC #### [facility] [address], [place] [address] Sara Angie Sodium [Moles/Vol] 144 mmol/L Normal 137-[address] [facility] Comment on above: Performed By: #### C MP, LIPID, PSASC #### [facility] [address], [place] [address] Sara Angie Urea nitrogen [Mass/Vol] 11.0 mg/dL Normal 9.0-20.0 [facility] Comment on above: Performed By: #### C MP, LIPID, PSASC #### [facility] [address], [place] [address] Sara Angie Urea nitrogen/Creatinine [Mass ratio] 11.6 mg/mg Normal [facility] Comment on above: Performed By: #### C MP, LIPID, PSASC #### [facility] [address], [place] [address] Sara Angie Encounters Encounter Date Encounter Type Care Provider Facility Start: 02-26-2024 End: 02-26-2024 ambulatory [facility] Work Phone: Start: 02-26-2024 End: 02-26-2024 Patient encounter procedure [facility] Work Phone: Start: 03-27-2023 End: 03-27-2023 ambulatory KELSI SILVA Not Available Start: 10-25-2020 Encounter for genera l adult medical examination without abnormal findings DR CHANTELL MALAVE [facility] Start: 10-20-2020 End: 10-21-[address] CHANTELL MALAVE Facility:[facility] Start: 10-20-2020 End: 10-21-2020 Encounter for general adult medical examination without abnormal findings DR CHANTELL MALAVE Facility:[facility] Start: 08-19-2020 End: 04-23-[address] CHANTELL MALAVE Facility:[facility] Start: 07-27-2020 End: 07-28-2020 ambulatory NONE LISTED REQUEST Facility:[facility] Procedures Date Procedure Procedure Detail Performing Clinician Start: 10-20-[address] CHANTELL OLIVAREST Comment on above: Performed By: #### C MP, LIPID, PSASC #### [facility] [address], [place] [address] Sara Adams Payers Date Payer Category Payer Unknown [id number] 1980 Unknown [id number] 1959 Self-pay 1959 Unknown [id number] Unknown [id number] Unknown [id number] Unknown [employer] [id number] Social History Date Type Detail Facility [facility] Work Phone: Start: 1980 Sex Assigned At Male F [facility] Evaluation note Note Date & Type Note Facility Evaluation note No assessment information availa ble [facility] Work Phone: Summary Purpose Family History No Family History Records FoundNo Family History Records Found Advance Directives Advance Directive Response Recorded Date/ Time Advance Directives No February 26, 2024 12:30pm Chief Complaint and Reason for Visit Chief Complaint poss cyst/infected p imple on back Additional Source Comments (unrecognized sect ion and content) No Status Records FoundNo Status Records Found INFORMATION SOURCE (unrecogn ized section and content) DATE CREATED AUTHOR 10/26/2020 [facility] DATE CREATED AUTHOR AUTHOR'S ORGANIZ ATION 03/29/2023 [facility] Care Teams (unrecognized sec tion and content) Team Status: Active Member Role Status Dates NON STAFF Primary Care Provider Active Team Status: Inactive Member Role Status Dates Ines Patricio APRN Attending Provider Active Start: February 26, 2024 End: February 26, 2024 NON STAFF Primary Care Provider Active Start: February 26, 2024 End: February 26, 2024 Goals (unrecognized section and content) Goals may be documented in a n alternate section FOR RECORDS PERTAINING TO PATIENTS WHO ARE [...] BE BASED ON THE PRIMARY CLINICAL RECORDS. [facility] [employer] provides no warranty or guarantee of the accuracy or completeness of information in this document.
[2024-02-28 17:57] VITALS: BP 145/90; PULSE 74; TEMP 37.4; O2SAT 99; BMI 47.3
--- NOTE | 2024-02-28 18:11 | ED.SKABFB1 ---
HPI - Skin/Abscess/Foreign Bdy General Chief complaint: Skin/Abscess/Foreign Body Stated complaint: SKIN ABCESS, INFECTION Time Seen by Provider: 02/28/24 17:57 Source: patient Mode of arrival: walk-in Limitations: no limitations History of Present Illness HPI narrative: Patient is a 43-year-old male who presents to the emergency department for worsening redness on his back. He states 3 days ago he noticed a red area that he believes was an infected hair follicle. He was seen urgent care and prescribed doxycycline on 02/25/2024. He has been taking the medication for 2 full days and today noticed worsening of the redness, outside of the skin marker [place] that was placed. He has no fevers, vomiting and is not diabetic. He returned to urgent care where he was told they could not do much more for him and referred him to the ER. Related Data Home Medications ?Medication ?Instructions ?Recorded ?Confirmed baclofen 10 mg tablet 10 mg PO DAILY PRN muscle spasm 12/25/23 02/28/24 ibuprofen 800 mg tablet 800 mg PO Q12H PRN pain 12/25/23 02/28/24 lisinopril 20 1 tab PO DAILY 12/25/23 02/28/24 mg-hydrochlorothiazide 25 mg tablet zonisamide 50 mg capsule 150 mg PO DAILY 12/25/23 02/28/24 doxycycline hyclate 100 mg capsule 100 mg PO Q12H 02/28/24 02/28/24 Previous Rx's ?Medication ?Instructions ?Recorded clindamycin HCl 150 mg capsule 300 mg (2 x 150 mg) PO Q6H 10 days 02/28/24 #80 caps hydrocodone 5 mg-acetaminophen 325 1 tab PO Q6H PRN pain 3 days #12 02/28/24 mg tablet tabs Allergies Allergy/AdvReac Type Severity Reaction Status Date / Time No Known Drug Allergies Allergy Verified 02/28/24 18:04 Review of Systems ROS Constitutional Denies: fever or chills Ears, nose, mouth, and throat Denies: throat pain or nasal congestion Cardiovascular Denies: chest pain Respiratory Denies: shortness of breath Gastrointestinal Denies: nausea or vomiting Integumentary/Breast Reports: skin pain and skin tenderness; Denies: rash Neurological Denies: numbness in extremities or weakness in extremities Hematologic/Lymphatic Denies: easy bruising or easy bleeding PFSH PFSH Medical History (Updated 02/28/24 @ 19:37 by NEVILLE Álvarez) Heel spur ?M77.30 - Calcaneal spur, unspecified foot (ICD-10) Kidney stone ?N20.0 - Calculus of kidney (ICD-10) HTN (hypertension) ?I10 - Essential (primary) hypertension (ICD-10) Surgical History (Updated 12/25/23 @ 08:30 by Gabriela Mckeon RN) History of lithotripsy ?Z98.890 - Other specified postprocedural states (ICD-10) Social History Little interest or pleasure in doing things: not at all Feeling down, depressed, or hopeless: not at all Exam Narrative Exam Narrative: Gen.: Awake, alert, in no distress Head: Normocephalic, atraumatic ENT: Moist mucous membranes Respiratory: No respiratory distress Extremities: Moves extremities equally Psych: Normal mood and affect Neuro: No focal neuro deficit Skin: Warm, dry, 3 cm indurated area to the back with 5 cm red streaking area adjacent to the skin marker. No fluctuance. Constitutional Vital Signs, click to edit/add: Last Vital Signs Temp 99.4 F 02/28/24 17:57 Pulse 74 02/28/24 17:57 Resp 20 02/28/24 17:57 BP 145/90 H 02/28/24 17:57 Pulse Ox 99 02/28/24 17:57 O2 Del Method Room Air 02/28/24 17:57 Course Vital Signs Vital signs: Vital Signs Temperature 99.4 F 02/28/24 17:57 Pulse Rate 74 02/28/24 17:57 Respiratory Rate 20 02/28/24 17:57 Blood Pressure 145/90 H 02/28/24 17:57 Pulse Oximetry 99 02/28/24 17:57 Oxygen Delivery Method Room Air 02/28/24 17:57 Temperature 99.4 F 02/28/24 17:57 Pulse Rate 74 02/28/24 17:57 Respiratory Rate 20 02/28/24 17:57 Blood Pressure 145/90 H 02/28/24 17:57 Pulse Oximetry 99 02/28/24 17:57 Oxygen Delivery Method Room Air 02/28/24 17:57 MDM - Skin/Abscess/Foreign Bdy MDM Narrative Medical decision making narrative: Betadine applied to the area centrally. 2 cc of 1% lidocaine were injected into the central raised indurated area and #11 blade was used to make a small incision. There was no significant purulence as expected. There is no residual fluctuance. Bleeding well-controlled and the area was dressed with gauze. IV was established for 900 mg IV clindamycin, patient declined pain medication and labs are stable. He will be discharged home with a prescription for 10 days of clindamycin, Loda as needed. Apply warm compresses and follow-up with PCP. Return to the ER if symptoms change or worsen SUPERVISED APC VISIT, PHYSICIAN ATTESTATION: Based on the medical record the care appears appropriate. ? Medical Records Attestation: I reviewed the patient's medical records. Lab Data Attestation: I reviewed the patient's lab results. Labs: Lab Results 02/28/24 02/28/24 Range/Units 18:23 18:45 WBC 12.2 H (4.0-11.0) 10^3/uL RBC 4.78 (4.70-6.10) 10^6/uL Hgb 14.4 (14.0-18.0) g/dL Hct 42.5 (42.0-54.0) % MCV 88.9 (80.0-94.0) fL MCH 30.1 (25.9-34.0) pg MCHC 33.9 (29.9-35.2) g/dL RDW 12.3 (11.0-15.0) % Plt Count 257 (150-450) 10^3/uL MPV 10.8 (9.5-13.5) fL Neut % (Auto) 68.1 (43.0-75.0) % Lymph % (Auto) 23.6 (20.5-60.0) % [place] % (Auto) 5.6 (1.7-12.0) % Eos % (Auto) 2.0 (0.9-7.0) % Baso % (Auto) 0.4 (0.2-2.0) % Neut # (Auto) 8.3 H (1.4-6.5) 10^3/uL Lymph # (Auto) 2.9 (1.2-3.8) 10^3/uL [place] # (Auto) 0.7 (0.3-0.8) 10^3/uL Eos # (Auto) 0.3 (0.0-0.7) 10^3/uL Baso # (Auto) 0.1 (0.0-0.1) 10^3/uL Abs Immat Gran (auto) 0.04 H (0.00-0.03) 10^3/uL Imm/Tot Granulo (auto) 0.3 (0.0-0.5) % ESR 105 H (<=15) mm/hr Sodium 142 (136-145) mmol/L Potassium 3.5 (3.5-5.1) mmol/L Chloride 105 (98-107) mmol/L Carbon Dioxide 26.8 (21.0-32.0) mmol/L Anion Gap 13.7 BUN 23.0 H (7.0-18.0) mg/dL Creatinine 1.11 (0.70-1.30) mg/dL Est GFR ( Amer) >60 (>=60 mL/min/1.73m^2) Est GFR (Non-Af Amer) >60 (>=60 mL/min/1.73m^2) BUN/Creatinine Ratio 20.7 Glucose 102 (74-106) mg/dL Lactate 0.8 (0.4-2.0) mmol/L Calcium 9.1 (8.5-10.1) mg/dL Total Bilirubin 0.4 (0.2-1.0) mg/dL AST 18 (15-37) U/L ALT 39 (16-63) U/L Alkaline Phosphatase 74 (46-116) U/L C-Reactive Protein 3.46 H (<=0.50) mg/dL Total Protein 7.5 (6.4-8.2) g/dL Albumin 3.3 L (3.4-5.0) g/dL Globulin 4.2 g/dL Albumin/Globulin Ratio 0.8 Discharge Plan Discharge Chief Complaint: Skin/Abscess/Foreign Body Clinical Impression: Cellulitis Patient Disposition: Home, Self-Care Time of Disposition Decision: 19:37 Condition: Good Prescriptions / Home Meds: New clindamycin HCl 150 mg capsule 300 mg PO Q6H 10 Days Qty: 80 0RF hydrocodone-acetaminophen 5-325 mg tablet 1 tab PO Q6H PRN (Reason: pain) 3 Days Qty: 12 0RF Rx Instructions: DX: L03.90 No Action baclofen 10 mg tablet 10 mg PO DAILY PRN (Reason: muscle spasm) ibuprofen 800 mg tablet 800 mg PO Q12H PRN (Reason: pain) lisinopril-hydrochlorothiazide 20-25 mg tablet 1 tab PO DAILY zonisamide 50 mg capsule 150 mg PO DAILY doxycycline hyclate 100 mg capsule 100 mg PO Q12H Print Language: Angolan Instructions: Cellulitis (ED), Warm Compress or Soak (ED) Referrals: Orville Asher MD [Primary Care Provider] - 1 week
[2024-02-28] MEDS: CLINDAMYCIN PHOSPHATE/D5W 900 MG/50 ML PREMIX 100 MG IV (18:42)
[2024-02-28] MEDS: LIDOCAINE HCL 1% 100 MG/10 ML MDV INJ (18:42)
[2024-02-28 18:52] LABS: Basophils Absolute Auto 0.1 10^3/uL (0.0-0.1); Basophils Percent Auto 0.4 % (0.2-2.0); Eosinophils Absolute Auto 0.3 10^3/uL (0.0-0.7); Hematocrit 42.5 % (42.0-54.0); Hemoglobin 14.4 g/dL (14.0-18.0); Immature Granulocytes Abs Auto 0.04 10^3/uL (0.00-0.03); Immature Granulocytes Pct Auto 0.3 % (0.0-0.5); Lymphocytes Absolute Auto 2.9 10^3/uL (1.2-3.8); Lymphocytes Percent Auto 23.6 % (20.5-60.0); Mean Corpuscular HGB Conc 33.9 g/dL (29.9-35.2); Mean Corpuscular Hemoglobin 30.1 pg (25.9-34.0); Mean Corpuscular Volume 88.9 fL (80.0-94.0); Mean Platelet Volume 10.8 fL (9.5-13.5); Monocytes Absolute Auto 0.7 10^3/uL (0.3-0.8); Monocytes Percent Auto 5.6 % (1.7-12.0); Neutrophils Absolute Auto 8.3 10^3/uL (1.4-6.5); Neutrophils Percent Auto 68.1 % (43.0-75.0); Platelet Count 257 10^3/uL (150-450); Red Blood Count 4.78 10^6/uL (4.70-6.10); Red Cell Distribution Width 12.3 % (11.0-15.0); White Blood Count 12.2 10^3/uL (4.0-11.0)
[2024-02-28 18:59] LABS: Lactate/Lactic Acid 0.8 mmol/L (0.4-2.0)
[2024-02-28 19:01] LABS: Erythrocyte Sedimentation Rate 105 mm/hr (<=15)
[2024-02-28 19:09] LABS: Alanine Aminotransferase 39 U/L (16-63); Albumin Globulin Ratio 0.8; Albumin Level 3.3 g/dL (3.4-5.0); Alkaline Phosphatase 74 U/L (46-116); Anion Gap 13.7; Aspartate Amino Transferase 18 U/L (15-37); BUN Creatinine Ratio 20.7; Bilirubin Total 0.4 mg/dL (0.2-1.0); C Reactive Protein 3.46 mg/dL (<=0.50); Calcium 9.1 mg/dL (8.5-10.1); Carbon Dioxide 26.8 mmol/L (21.0-32.0); Chloride 105 mmol/L (98-107); Estimated GFR (African America >60 (>=60 mL/min/1.73m^2); Estimated GFR (Non-African Ame >60 (>=60 mL/min/1.73m^2); Globulin 4.2 g/dL; Glucose 102 mg/dL (74-106); Potassium 3.5 mmol/L (3.5-5.1); Sodium 142 mmol/L (136-145); Total Protein 7.5 g/dL (6.4-8.2)
[2024-02-28 19:33] VITALS: BP 142/99; PULSE 75; TEMP 36.7; O2SAT 98
--- NOTE | 2024-02-28 19:49 | PC.NURSE ---
i gave verbal and written discharge orders along with 2 e-scripts, this patient voices yes to understanding these. at time of discharge this patient voices no signs of distress. i verbally instructed this patient not to operate automobiles or machinery or go to work while taken pain medication
== END 2024-02-28 19:49 | disposition home or self-care (01) ==
PROVIDERS: Physician Assistant; Emergency Provider Emergency Medicine Emergency Medical Services; PCP Family Medicine
DX: L03.312 Cellulitis of back [any part except buttock and flank] (principal)
CPT/HCPCS: 10060; 36415; 80053; 83605; 85025; 85652; 86140; 96365; 99284; J0736

== ENCOUNTER 2024-05-20 07:36 | Outpatient (OUT) | payer OTHER, SELFPAY ==
--- OUTSIDE RECORDS SUMMARY | 2024-05-20 07:39 | XMS_ITS | CCD ---
Author Organization [facility] Team Providers Care Towel Stretcher Name Role Phone DR CHANTELL MALAVE Primary Care Unavailable JENNIFER MACIAS Attending Unavailable JENNIFER MACIAS Consulting Unavailable JENNIFER MACIAS Admitting Unavailable REQUEST, DR WALL LISTED Admitting Unavaila ble ANANDA, DR CHANTELL Walter Primary Care Unavailable REQUEST, DR WALL LISTED Attending Unavaila ble REQUEST, DR WALL LISTED Consulting Unavaila ble ANANDA, DR CHANTELL Walter Attending Unavailable ANANDA, DR CHANTELL Walter Consulting Unavailable ANANDA, DR CHANTELL Walter Primary Care Unavailable ANANDA, DR CHANTELL Walter Admitting Unavailable KELSI SILVA Attending Unavailable Medications Current Medications Medication Drug Class(es) Dates Sig (Normalized) Sig (Original) baclofen 10 mg oral tablet (1 source) gamma-Aminobutyri c Acid-ergic Agonist Start: 02-28-2024 take 10 mg by mouth once daily Baclofen Active 10 MG PO Daily February 28, 2024 12:00am doxycycline hyclate 100 mg oral capsule (1 source) Tetracycline-clas s Drug Start: 02-28-2024 take 100 mg by mouth once daily Doxycycline Hyclate Active 100 MG PO Daily February 28, 2024 12:00am hydroCHLOROthiazide 25 mg / lisinopril 20 mg oral tablet (1 source) Thiazide Diuretic, Angiotensin Converting Enzyme Inhibitor Start: 02-28-2024 take 1 tablet by mouth once daily Lisinopril-Patterson chlorothiazide Active 1 TAB PO Daily February 28, 2024 12:00am zonisamide (1 source) Anti-epileptic Agent Start: 02-28-2024 Zonisamide Active MG PO February 28, 2024 12:00am Problems Problem Classification Problem Date Documented Da te Episodic/Chronic Epilepsy; convulsions (1 source) Epilepsy; Translations: [Epilepsy, unspecified, not intractable, without status epilepticus] 02-28-2024 Chronic Essential hypertension (1 source) Hypertensive disorder; Translations: [Essential (primary) hypertension] 02-28-2024 Chronic Other screening for suspected conditions (not mental disorders or infectious disease) (1 source) Encounter for screening for malignant neoplasm of prostate; Translations: [ENC SCREEN MALIG NEOPLASM PROSTATE] Onset: 10-25-2020 Episodic Results Test Name Value Interpretation Reference Range Facil ity CBC AUTO DIFFon 10-20-2020 BASO # 0.0 103/ul Normal 0.0-0.1 [facility] Comment on above: Performed By: #### C BC #### [facility] [address] [address] Sara Angie Basophils/100 WBC (Bld) 0.4 % Normal 0.2-2.0 [facility] Comment on above: Performed By: #### C BC #### [facility] [address] [place] [address] Sara Angie EO # 0.2 103/ul Normal 0.0-0.7 [facility] Comment on above: Performed By: #### C BC #### [facility] [address] [place] [address] Sara Angie Eosinophils/100 WBC (Bld) 3.1 % Normal 0.9-7.0 [facility] Comment on above: Performed By: #### C BC #### [facility] [address] [place] [address] Sara Angie Erythrocyte distribution width (RBC) [Ratio] 12.8 % Normal 11.0-15.0 [facility] Comment on above: Performed By: #### C BC #### [facility] [address] [place] [address] Sara Angie Hematocrit (Bld) [Volume fraction] 44.8 % Normal 42.0-54.0 [facility] Comment on above: Performed By: #### C BC #### [facility] [address] [place], [place] [id number] Sara Angie Hemoglobin (Bld) [Mass/Vol] 14.8 g/dL Normal 14.0-18.0 [facility] Comment on above: Performed By: #### C BC #### [facility] [address] [place] [address] Saramalachi Adams IG # 0.02 10e3/ul Normal 0.00-0.03 [facility] Comment on above: Performed By: #### C BC #### [facility] [address] [address] Saramalachi Adams IG % 0.3 % Normal 0.0-0.5 [facility] Comment on above: Performed By: #### C BC #### [facility] [address] [address] Saramalachi Adams LYMPH # 2.5 103/ul Normal 1.2-3.8 [facility] Comment on above: Performed By: #### C BC #### [facility] [address] [address] Sara Adams Lymphocytes/100 WBC (Bld) 33.4 % Normal 20.5-60.0 [facility] Comment on above: Performed By: #### C BC #### [facility] [address] [place] [address] Sara Adams MANUAL DIFF REQ NO Normal [facility] Comment on above: Performed By: #### C BC #### [facility] [address] [place] [address] Sara Adams MCH (RBC) [Entitic mass] 29.2 pg Normal 25.9-34.0 [facility] Comment on above: Performed By: #### C BC #### [facility] [address] [place] [address] Sara Adams MCHC (RBC) [Mass/Vol] 33.0 g/dL Normal 29.9-35.2 [facility] Comment on above: Performed By: #### C BC #### [facility] [address] [address] Saramalachi Adams MCV (RBC) [Entitic vol] 88.4 fL Normal 80.0-94.0 [facility] Comment on above: Performed By: #### C BC #### [facility] [address] [address] Sara Angie MONO # 0.5 103/ul Normal 0.3-0.8 [facility] Comment on above: Performed By: #### C BC #### [facility] [address] [place], [place] [address] Sara Duranen Monocytes/100 WBC (Bld) 7.0 % Normal 1.7-12.0 [facility] Comment on above: Performed By: #### C BC #### [facility] [address] [id number] Sara Adams NEUT # 4.2 103/ul Normal 1.4-6.5 [facility] Comment on above: Performed By: #### C BC #### [facility] [address] [place], [place] [id number] Sara Adams Neutrophils/100 WBC (Bld) 55.8 % Normal 43.0-75.0 [facility] Comment on above: Performed By: #### C BC #### [facility] [address] [place], [place] [id number] Sara Adams Platelet mean volume (Bld) [Entitic vol] 10.7 fL Normal 9.5-13.5 [facility] Comment on above: Performed By: #### C BC #### [facility] [address] [place], [place] [id number] Saramalachi Duranen PLT 239 103/ul Normal 150-450 [facility] Comment on above: Performed By: #### C BC #### [facility] [address] [place], [place] [phone] Sara Angie RBC 5.07 106/ul Normal 4.70-6.10 [facility] Comment on above: Performed By: #### C BC #### [facility] [address] [place], [place] [id number] Sara Angie WBC 7.5 103/ul Normal 4.0-11.0 [facility] Comment on above: Performed By: #### C BC #### [facility] [address] [place], [place] [id number] Sara Adams GLYCOHEMOGLOBIN A1Con 2020 ADA RECOMMENDATION ADA THERAPEUTIC TARGET 6.0 - 7.0 ACTION SUGGESTED > 7.0 Normal [facility] Comment on above: Performed By: #### A 1C #### [facility] [address] [place], [place] [address] Asra Angie Glucose [Mass/Vol] 120 mg/dL Normal [facility] Comment on above: Performed By: #### A 1C #### [facility] [address] [place], [place] [address] Sara Angie HbA1c (Bld) [Mass fraction] 5.8 % Normal <=6.0 [facility] Comment on above: Performed By: #### A 1C #### [facility] [address] [place], [place] [address] Sara Angie LIPID PROFILEon 10-20-2020 CHOL-HDL RATIO NORM SEE BELOW Normal [facility] Comment on above: Result Comment: 3.3 - 4.4 LOW RISK 4.4 - 7.1 AVERAGE RISK 7.1 - 11.0 MODERATE RISK >11.0 HIGH RISK Performed By: #### C MP, LIPID, PSASC #### [facility] [address] [phone] Sara Angie Cholesterol [Mass/Vol] 166 mg/dL Normal <=200 [facility] Comment on above: Performed By: #### C MP, LIPID, PSASC #### [facility] [address] [phone] Sara Angie Cholesterol in HDL [Mass/Vol] 46 mg/dL Normal [facility] Comment on above: Performed By: #### C MP, LIPID, PSASC #### [facility] [address] [phone] Sara Angie Cholesterol in LDL [Mass/Vol] 104.6 mg/dL Normal [facility] Comment on above: Performed By: #### C MP, LIPID, PSASC #### [facility] [address] [phone] Sara Angie Cholesterol.total/Cho lesterol in HDL [Mass ratio] 3.6 {ratio} Normal [facility] Comment on above: Performed By: #### C MP, LIPID, PSASC #### [facility] [address] [phone] Sara Angie HDL NORMAL > or = 60 mg/dl - LOW CARDIOVASCULAR RISK <40 mg/dl - HIGH CARDIOVASCULAR RISK Normal [facility] Comment on above: Performed By: #### C MP, LIPID, PSASC #### [facility] [address] [place], [place] [address] Sara Angie LDL CALC NORMAL SEE BELOW Normal [facility] Comment on above: Result Comment: <100 mg/dl OPTIMAL 100 - 129 mg/dl NEAR OR ABOVE OPTIMAL 130 - 159 mg/dl BORDERLINE HIGH 160 - 189 mg/dl HIGH >190 mg/dl VERY HIGH Performed By: #### C MP, LIPID, PSASC #### [facility] [address] [place], [place] [address] Sara Angie Triglyceride [Mass/Vol] 77 mg/dL Normal <=150 [facility] Comment on above: Performed By: #### C MP, LIPID, PSASC #### [facility] [address] [place], [place] [address] Sara Angie VLDL CALC 15.4 mg/dL Normal [facility] Comment on above: Performed By: #### C MP, LIPID, PSASC #### [facility] [address] [place], [place] [address] Saramalachi Duranen PROF 14(COMP METB)on 021 Albumin [Mass/Vol] 3.4 g/dL Critically low 3.5-5.0 [facility] Comment on above: Performed By: #### C MP, LIPID, PSASC #### [facility] [address] [phone] Sara Angie Albumin/Globulin [Mass ratio] 0.8 {ratio} Normal [facility] Comment on above: Performed By: #### C MP, LIPID, PSASC #### [facility] [address] [place], [place] [address] Sara Angie ALP [Catalytic activity/Vol] 80 U/L Normal 38-126 [facility] Comment on above: Performed By: #### C MP, LIPID, PSASC #### [facility] [address] [place], [place] [address] Sara Angie ALT [Catalytic activity/Vol] 55 U/L Normal 21-72 [facility] Comment on above: Performed By: #### C MP, LIPID, PSASC #### [facility] [address] [address] Sara Angie Anion gap [Moles/Vol] 11.4 mmol/L Normal [facility] Comment on above: Performed By: #### C MP, LIPID, PSASC #### [facility] [address] [address] Sara Angie AST [Catalytic activity/Vol] 26 U/L Normal 17-59 [facility] Comment on above: Performed By: #### C MP, LIPID, PSASC #### [facility] [address] [place] [address] Sara Angie Bilirubin [Mass/Vol] 0.5 mg/dL Normal 0.2-1.3 [facility] Comment on above: Performed By: #### C MP, LIPID, PSASC #### [facility] [address] [place] [address] Sara Angie Calcium [Mass/Vol] 9.1 mg/dL Normal 8.4-10.2 [facility] Comment on above: Performed By: #### C MP, LIPID, PSASC #### [facility] [address] [place] [address] Sara Angie Chloride [Moles/Vol] 106 mmol/L Normal 98-107 [facility] Comment on above: Performed By: #### C MP, LIPID, PSASC #### [facility] [address] [place] [address] Sara Angie CO2 [Moles/Vol] 30.9 mmol/L Critically high 22.0-30.0 [facility] Comment on above: Performed By: #### C MP, LIPID, PSASC #### [facility] [address] [place] [address] Sara Angie Creatinine [Mass/Vol] 0.95 mg/dL Normal 0.66-1.25 [facility] Comment on above: Performed By: #### C MP, LIPID, PSASC #### [facility] [address] [place], [place] [address] Sara Angie EGFR-AF [facility] >60 Normal >=60 [facility] Comment on above: Performed By: #### C MP, LIPID, PSASC #### [facility] [address] [place] [address] Sara Angie EGFR-NON AF [facility] >60 Normal >=60 [facility] Comment on above: Performed By: #### C MP, LIPID, PSASC #### [facility] [address] [place] [address] Sara Angie Globulin (S) [Mass/Vol] 4.1 g/dL Normal [facility] Comment on above: Performed By: #### C MP, LIPID, PSASC #### [facility] [address] [place] [address] Sara Angie Glucose [Mass/Vol] 106 mg/dL Normal 74-106 [facility] Comment on above: Performed By: #### C MP, LIPID, PSASC #### [facility] [address] [place] [address] Sara Angie Potassium [Moles/Vol] 4.3 mmol/L Normal 3.4-5.0 [facility] Comment on above: Performed By: #### C MP, LIPID, PSASC #### [facility] [address] [place] [address] Sara Angie Protein [Mass/Vol] 7.5 g/dL Normal 6.1-8.2 [facility] Comment on above: Performed By: #### C MP, LIPID, PSASC #### [facility] [address] [place] [address] Sara Angie Sodium [Moles/Vol] 144 mmol/L Normal 137-145 [facility] Comment on above: Performed By: #### C MP, LIPID, PSASC #### [facility] [address] [place] [address] Sara Angie Urea nitrogen [Mass/Vol] 11.0 mg/dL Normal 9.0-20.0 [facility] Comment on above: Performed By: #### C MP, LIPID, PSASC #### [facility] [address] [place], [place] [id number] Sara Adams Urea nitrogen/Creatinine [Mass ratio] 11.6 mg/mg Normal [facility] Comment on above: Performed By: #### C MP, LIPID, PSASC #### [facility] [address], [place] [address] Sara Adams Encounters Encounter Date Encounter Type Care Provider Facility Start: 02-28-2024 End: 02-28-2024 ambulatory [facility] Work Phone: Start: 02-28-2024 End: 02-28-2024 Patient encounter procedure [facility] Work Phone: Start: 02-26-2024 End: 02-26-2024 ambulatory [facility] Work Phone: Start: 02-26-2024 End: 02-26-2024 Patient encounter procedure [facility] [place] Work Phone: Start: 03-27-2023 End: 03-27-2023 ambulatory KELSI SILVA Not Available Start: 10-25-2020 Encounter for genera l adult medical examination without abnormal findings DR CHANTELL MALAVE [facility] Start: 10-20-2020 End: 10-21-[address] CHANTELL [...] By: #### C MP, LIPID, PSASC #### [facility] [address] [id number] Sara Adams Payers Date Payer Category Payer Unknown [id number] [id number] [id number] 1980 Unknown [id number] 1959 Self-pay 1959 Unknown [id number] Unknown [id number] [id number] [id number] Unknown [id number] Unknown [facility] [id number] Social History Date Type Detail Facility Tobacco smoking stat [facility] Unknown if ever smoked [facility] Work Phone: Start: 1980 Sex Assigned At Male [facility] Start: 02-28-2024 Tobacco smoking stat [facility] Never smoked tobacco (finding) [facility] Evaluation note Note Date & Type Note Facility Evaluation note No assessment information availa ble [facility] Work Phone: Summary Purpose Family History No Family History Records FoundNo Family History Records Found Advance Directives Advance Directive Response Recorded Date/ Time Advance Directives No February 26, 2024 12:30pm Advance Directive Response Recorded Date/ Time Advance Directives No February 28, 2024 5:08pm Chief Complaint and Reason for Visit Chief Complaint poss cyst/infected p imple on back Chief Complaint poss cyst/infected p imple on back Infected hair on back Additional Source Comments (unrecognized sect ion and content) No Status Records FoundNo Status Records Found INFORMATION SOURCE (unrecogn ized section and content) DATE CREATED AUTHOR 10/26/2020 [facility] DATE CREATED AUTHOR AUTHOR'S ORGANIZ ATION 03/29/2023 [facility] [employer] Care Teams (unrecognized sec tion and content) Team Status: Active Member Role Status Dates NON STAFF Primary Care Provider Active Team Status: Inactive Member Role Status Dates Ines Patricio APRN Attending Provider Active Start: February 26, 2024 End: February 26, 2024 NON STAFF Primary Care Provider Active Start: February 26, 2024 End: February 26, 2024 Team Status: Inactive Member Role Status Dates NON STAFF Primary Care Provider Active Start: February 28, 2024 End: February 28, 2024 Ailyn Abad APRN Attending Provider Active Start: February 28, 2024 End: February 28, 2024 Goals (unrecognized section and content) Goals may be documented in a n alternate sectionGoals may be documented in an alternate section FOR RECORDS PERTAINING TO PATIENTS [...] BE BASED ON THE PRIMARY CLINICAL RECORDS. [email or web address] [facility]. provides no warranty or guarantee of the accuracy or completeness of information in this document.
--- NOTE | 2024-05-20 07:40 | XR_ITS ---
[address] [id number] Patient Name: ROLLY LANDA MRN: [id number] date: 1980 Sex: M Assigned Patient Location: [facility] Current Patient Location: [facility] Accession/Order Number: [id number] Exam Date: 05/20/2024 07:45 Report Date: 05/20/2024 12:50 At the request of: SEBASTIÁN COATS Procedure: XR ankle RT min 3V PROCEDURE: XR ankle RT min 3V HISTORY: Right Ankle Pain . COMPARISON: None. FINDINGS: BONES:No fracture, dislocation, articular surface irregularity. Degenerative enthesophytes at the Achilles tendon and plantar aponeurosis insertions into the calcaneus. SOFT TISSUES:No visible soft tissue swelling. EFFUSION:None visible. OTHER: Negative. XR/XR ankle RT min 3V IMPRESSION: 1. No acute bone abnormality or significant degenerative joint disease. 2. Degenerative enthesopathic spurring of the calcaneus of uncertain clinical significance. Electronically authenticated by: JARON LOONEY Date: 05/20/2024 12:50
== END 2024-05-20 07:37 | disposition home or self-care (01) ==
LOC: RAD 07:37
PROVIDERS: PCP Family Medicine; Visit Provider Podiatrist Foot & Ankle Surgery
DX: M25.571 Pain in right ankle and joints of right foot (principal); M77.31 Calcaneal spur, right foot
CPT/HCPCS: 73610

== ENCOUNTER 2024-10-30 10:29 | Emergency (ER) | payer BC, SELFPAY ==
--- OUTSIDE RECORDS SUMMARY | 2024-06-03 10:00 | XMS_ITS ---
Author Organization [facility] in [place] Address [address] [place] [address] Care Team Providers Care Rf Microwave Engineer Name Role Phone Orville Asher MD Primary Care Provider Unavailab David Dye Unavailable [phone] Reason For Referral Reason Referral to [facility] PT Diagnosis 1 Nondisplaced avulsio n fracture of tuberosity of right calcaneus, initial encounter for closed fracture (S92.034A) Referral Organization [facility] ([facility]) Referring Provider First Name David Referring Provider Last Name Nicolasa Referring Provider Speciality Podiatry Referred Provider Specialty Physical The rapist Referral Priority Routine REASON FOR VISIT 2 week f/u Medications Medication SIG (Take, Route, Frequency, Duration) Notes Start Date End Date Status Aspirin 81 81 MG 1 tablet Orally Once a day 2023 Active Zonisamide 50 MG as directed Orally 10/25/2023 Active Lisinopril-hydroCHLOROthia zide 20-25 MG 1 tablet Orally Once a day 10/25/2023 Active Social History Tobacco Use: Social History Observation Description Date Details (start date - stop date) Never Smoker NA - NA Tobacco Control (Standard) Question Answer Notes Tobacco use: Nonsmoker Vital Signs Temperature 98.2 degrees Fahrenheit 06/03/19 25 Heart Rate 87 /min 06/03/2024 Height 70 in 06/03/2024 Oximetry 96 % 06/03/2024 Encounters Encounter Location Date Provider Diagnosis [facility]) [address] [place] [address] [place] [address] 06/03/2024 David Baldwin Nondisplaced avulsion fracture of tuberosity of right calcaneus, initial encounter for closed fracture S92.034A Assessments Encounter Date Diagnosis (ICD Code) Assessment Notes Treatment Notes Treatment Clinical Notes Section Notes 06/03/2024 Nondisplaced avulsion fracture of tuberosity of right calcaneus, initial encounter for closed fracture (ICD-10 - S92.034A) Patient follows up for anterior process fracture of the calcaneus. Although pain has substantially improved he has not yet subjectively stable and definitely not pain-free. I extended his time off of work until 06/24/2024. I did demonstrate strengthening and range of motion exercises that he can perform on his own as well as provided a prescription for physical therapy. I did prescribe him meloxicam 15 mg 1 p.o. daily as needed for pain #30 with 2 refills.He will call with any issues or if his pain substantially improves that he is able to go back to work prior to the date above. Follow-up in 3 to 4 weeks or as needed Plan Of Treatment Treatment Notes Assessment Notes Nondisplaced avulsion fractu re of tuberosity of right calcaneus, initial encounter for closed fracture Patient follows up for anterior process fracture of the calcaneus. Although pain has substantially improved he has not yet subjectively stable and definitely not pain-free. I extended his time off of work until 06/24/2024. I did demonstrate strengthening and range of motion exercises that he can perform on his own as well as provided a prescription for physical therapy. I did prescribe him meloxicam 15 mg 1 p.o. daily as needed for pain #30 with 2 refills.He will call with any issues or if his pain substantially improves that he is able to go back to work prior to the date above. Follow-up in 3 to 4 weeks or as needed Referrals Referral Date Details 06/03/2024 06/03/2024, Referral to [facility] PT Progress Notes * Norm MCKEONroberto carlossDOB:[birth year] (43 yo M)Acc No.[id number]:06/03/2024 Follow Up Patient: Tee HAINES Provider: Barrington Baldwin DPM, MS :1980 A ge:43 Y S ex:Male Date:06/03/2024 Address:[address] [place], [place] [id number] Pcp:Orville Asher MD Check In:01:56 PM ESTCheck O ut:02:42 PM EST Subjective: * Chief Complaints: * 2 week f/u * HPI: G eneral: Patient in office today for 2 week f/u for nondisplaced avulvsion fracture of right calcaneus. Patient relates to intermittent pain which has improved but he still feels unsteady on uneven surfaces. 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 Patient is using ibuprofen as needed for swelling and pain. Although is nervous to reinjure himself on the job due to slick areas covered in oil. * ROS: G eneral/Constitutional: Chills d enies. F ever d enies. W eight gain?denies. W eight loss d enies. S kin: Skin Ulcers d enies. S kin lesion(s) d enies. ? C ardiovascular: Difficulty breathing on exertion d enies. L eg cramps?denies. E rey d enies. C hest pain d enies. R espiratory: Difficulty breathing d enies. D yspnea d enies.?Cough d enies. G astrointestinal: Diarrhea d enies. N ausea d enies. V omiting?denies. M usculoskeletal: Bone/Joint Symptoms d enies. C correction Pain d enies.?Leg cramps d enies. N eurologic: Numbness d enies. T ingling d enies . G ait abnormality d enies. ? H ematology: Anemia D enies. E asy bruising d enies. ? A ll Other Systems: Review of Systems (ROS) S ee HPI for details,All others negative except those mentioned in HPI. * Active Problem List M79.672 Left foot pain Modified On:10/25/2023W/U Status:confirmed M79.671 Right foot pain Modified On:10/25/2023U Status:confirmed M24.571 Contracture, right a nkle Modified On:10/25/2023U Status:confirmed M24.572 Contracture, left an kle Modified On:10/25/2023U Status:confirmed M25.571 Right ankle pain Modified On:05/19/2024W/U Status:confirmed * Medical History: * Surgical History: N o Surgical History documented. * Hospitalization/Major Diagno stic Procedure: N o Hospitalization History. * Family History: F ather: diagnosed with Other malignant neoplasm of unspecified site, Unspecified essential hypertension. M other: diagnosed with Unspecified essential hypertension, Unspecified heart disease. * Social History: T obacco Use: T obacco Control (Standard) T obacco use: N onsmoker * Medications: T akingAspirin 81(Aspirin) 81 MG Tablet Delayed Release 1 tablet Orally Once a day Lisinopril-hydroCHLOROthiazide 20-25 MG Tablet 1 tablet Orally Once a day Zonisamide 50 MG Capsule as directed Orally Medication List reviewed and reconciled with the patientTaking Aspirin 81(Aspirin) 81 MG Tablet Delayed Release 1 tablet Orally Once a day Taking Lisinopril-hydroCHLOROthiazide 20-25 MG Tablet 1 tablet Orally Once a day Taking Zonisamide 50 MG Capsule as directed Orally Medication List reviewed and reconciled with the patient * Allergies: n o[Allergies Verified] Objective: * Vitals: H t: 70 in, Temp:98.2F, HR:87/min, Pain scale:11-10, Oxygen sat %:96%, Ht-cm: 177.8 cm. * Examination: P odiatry Examination: SKIN: s kin intact, n o sign of infection. MUSCULOSKELETAL: M ild tenderness on direct palpation to the anterior process of the calcaneus. Minimal swelling. Muscle strength in all planes is 5/5. Negative anterior drawer.. NEUROLOGICAL: l ight touch sensation intact, n egative tinel's sign. VASCULAR: P edal pulses palpable, C apillaryrefill is brisk to toe, D igitalhair intact. Assessment: * Assessment: 1. N ondisplaced avulsion fracture of tuberosity of right calcaneus, initial encounter for closed fracture - S92.034A (Primary) Plan: * Treatment: * Procedure Codes: * * Sign off status: Completed Visit Status: C HK (Check Out) true * Provider: Barrington Baldwin DPM, MS Date: 0 06/03/2024 Generated for Moose donnelly/Faxing/eTransmitting on: 0 10/30/2024 10:39 AM EDT History and Physical Notes * HPI (History of Present Illness) Category Sub-Category Detail Notes Category Not es General Patient in offi ce today for 2 week f/u for nondisplaced avulvsion fracture of right calcaneus. Patient relates to intermittent pain which has improved but he still feels unsteady on uneven surfaces. 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 Patient is using ibuprofen as needed for swelling and pain. Although is nervous to reinjure himself on the job due to slick areas covered in oil. Examination Category Sub-Category Detail Notes Category Not es Podiatry Examination SKIN: skin intact, no sign of infection MUSCULOSKELETAL: Mild tenderness on d irect palpation to the anterior process of the calcaneus. Minimal swelling. Muscle strength in all planes is 5/5. Negative anterior drawer. NEUROLOGICAL: light touch sensatio n intact, negative tinel's sign VASCULAR: Pedal pulses palpable, Capillary refill is brisk to toe, Digital hair intact Consultation Request Notes Referral Date Referring Provider Referred Provider Not es 06/03/2024 David Baldwin , Referral t o [facility] PT
--- OUTSIDE RECORDS SUMMARY | 2024-06-03 10:33 | XMS_ITS ---
Author Organization [facility] in [place] Address [address] [place] [address] Care Team Providers Care Patrol Agent Name Role Phone Orville Asher MD Primary Care Provider Unavailab David Dye [phone] REASON FOR VISIT meds Medications Medication SIG (Take, Route, Fr equency, Duration) Notes Start Date End Date Status Meloxicam 15 MG 1 tablet Orally Once a day for 30 days 06/03/2024 Active Encounters Encounter Location Date Provider Diagnosis [facility] (PODIAT[facility]) [address] [place] [address] [place] [address] 06/03/2024 David Baldwin Plan Of Treatment Medication Medication Name Sig Start Date Stop Date Notes Meloxicam 15 MG 1 tablet Orally Once a day for 30 days 07/2024 Progress Notes * SYEDALeiasDOB:[birth year] (43 yo M)Acc No.[id number]:06/03/2024 Patient: Tee HAINES :1980 A ge:43 Y S ex:Male Address:[address] [place] [address], [phone] * Refills Start Meloxicam Tablet, 15 MG, Orally, 30, 1 tablet, Once a day, 30 days, Refills=3 * true * Date: Generated for Mayrai cony/Alex/eTransmitting on: 0 10/30/2024 10:38 AM EDT
[2024-10-30 10:31] VITALS: BP 145/87; PULSE 85; TEMP 36.5; O2SAT 98; BMI 43.0
--- NOTE | 2024-10-30 10:39 | PC.NURSE ---
pain to inner right knee, pain increases and decreases, no known injury and no pain behind right knee with assessment
--- OUTSIDE RECORDS SUMMARY | 2024-10-30 10:39 | XMS_ITS | Encounter Summary ---
Author Organization [facility] Address [address] [place] [address] Care Team Providers Care Contract Runner Name Role Phone Orville Asher MD Primary Care Provider [phone] Encounter Details Date Type Department Care Team (Late st Contact Info) Description 12/18/2023 Orders Only [facility] [address] [place] [address] Dimitry Ramírez MD [address] [place] [address], [address], [place] [address] Social History Tobacco Use Types Packs/Day Years Used Date Smoking Tobacco: Never Smokeless Tobacco: Never Alcohol Use Standard Drinks/Week Comments Never 0 (1 standard drink = 0.6 oz pur e alcohol) Humiliation, Afraid, Rape, and Kick questionnair e Answer Date Recorded Within the last year, have y ou been afraid of your partner or ex-partner? No 03/26/2023 Within the last year, have y ou been humiliated or emotionally abused in other ways by your partner or ex-partner? No Within the last year, have y ou been kicked, hit, slapped, or otherwise physically hurt by your partner or ex-partner? No 03/26/2023 Within the last year, have y ou been raped or forced to have any kind of sexual activity by your partner or ex-partner? No 03/26/2023 Social Connection and Isolat ion Panel [NHANES] Answer Date Recorded In a typical week, how many times do you talk on the phone with family, friends, or neighbors? More than three times a week 03/26/2023 How often do you get togethe r with friends or relatives? Once a week 03/26/2023 How often do you attend chur ch or zoroastrian services? 1 to 4 times per year 03/26/2023 Do you belong to any clubs o r organizations such as methodist groups, unions, fraternal or athletic groups, or school groups? No 03/26/2023 How often do you attend meet ings of the clubs or organizations you belong to? Never 03/26/2023 Are you , , di vorced, , never , or living with a partner? 03/26/2023 AUDIT-C Answer Date Recorded Q1: How often do you have a drink containing alc ohol? Monthly or less 03/26/2023 Q2: How many drinks containi ng alcohol do you have on a typical day when you are drinking? 1 or 2 03/26/2023 Q3: How often do you have si x or more drinks on one occasion? Never 03/26/2023 Overall Financial Resource Strain (CARDIA) Answe r Date Recorded How hard is it for you to pa y for the very basics like food, housing, medical care, and heating? Not hard at all 03/26/2023 [facility] - Occupational Stress Questionnaire Answer Date Recorded Do you feel stress - tense, restless, nervous, or anxious, or unable to sleep at night because your mind is troubled all the time - these days? Not at all 03/26/2023 Exercise Vital Sign Answer Date Recorde d On average, how many days pe r week do you engage in moderate to strenuous exercise (like a brisk walk)? 0 days 03/26/2023 On average, how many minutes do you engage in exercise at this level? 0 min 03/26/2023 Hunger Vital Sign Answer Date Recorded Within the past 12 months, y ou worried that your food would run out before you got the money to buy more. Never true 03/26/20 23 Within the past 12 months, t he food you bought just didn't last and you didn't have money to get more. Never true 03/26/2023 PRAPARE - Transportation Answer Date Re corded In the past 12 months, has l ack of transportation kept you from medical appointments or from getting medications? No 03/01 In the past 12 months, has l ack of transportation kept you from meetings, work, or from getting things needed for daily living? No 03/26/2023 Housing Stability Vital Sign Answer Rafael e Recorded In the last 12 months, was t here a time when you were not able to pay the mortgage or rent on time? No 03/26/2023 In the last 12 months, how many places have you lived? 1 03/26/2023 In the last 12 months, was t here a time when you did not have a steady place to sleep or slept in a group home (including now)? No 03/26/2023 Sex and Gender Information Value Date Recorded Sex Assigned at Not on file Legal Sex Male 8:03 PM EDT Gender Identity Not on file Sexual Orientation Not on file documented as of this encounter Plan of Treatment Not on file documented as of this encounter Procedures Procedure Name Priority Date/Time Associated Diagnosis Comments XR KNEE 4+ VIEWS LEFT Routine 12/18/2023 11:11 AM EDT documented in this encounter Results * XR knee 4+ views left (12/18/2023 11:11 AM EDT) Anatomical Region Laterality Modality Lower Extremities, Knee Left Radiogra phic Imaging Dimitry Ramírez MD IMG XR PROCEDURES F inal Result documented in this encounter Visit Diagnoses Not on filedocumented in this encounter Care Teams Contract Runner Relationship Specialty Start Date End Date Orville Asher MD PCP - General Family Medicine 01/28/23 documented as of this encounter
--- OUTSIDE RECORDS SUMMARY | 2024-10-30 10:39 | XMS_ITS | Encounter Summary ---
Author Organization [facility] Address [address] [place] [address] Care Team Providers Care Technology Specialist Name Role Phone Orville Asher MD Primary Care Provider [phone] Encounter Details Date Type Department Care Team (Late st Contact Info) Description 10/25/2023 Orders Only [facility] [address] [place] [address] Sana Miranda PA [address] [place] [address] [place] [address] Social History Tobacco Use Types Packs/Day Years [...] often do you attend chur ch or anabaptist services? 1 to 4 times per year 03/26/2023 Do you belong to any clubs o r organizations such as nondenominational groups, unions, fraternal or athletic groups, or [...] and heating? Not hard at all 03/26/2023 [facility] - Occupational Stress [...] place to sleep or slept in a fpc (including now)? No 03/26/2023 Sex and Gender Information Value Date Recorded Sex Assigned at Not on file Legal Sex Male 8:03 PM EDT Gender Identity Not on file Sexual Orientation Not on file documented as of this encounter Plan of Treatment Not on file documented as of this encounter Procedures Procedure Name Priority Date/Time Associated Diagnosis Comments XR FOOT 3+ VIEWS BILATERAL Routine 10/25/2023 4:10 PM EDT documented in this encounter Results * XR foot 3+ views bilateral (10/25/2023 4:10 PM EDT) Anatomical Region Laterality Modality Lower Extremities, Foot Bilateral Radiogra phic Imaging Sana LOZADA IMG XR PROCEDURES Final Res ult documented in this encounter Visit Diagnoses Not on filedocumented in this encounter Care Teams Technology Specialist Relationship Specialty Start Date End Date Orville Asher MD PCP - General Family Medicine 01/28/23 documented as of this encounter
--- OUTSIDE RECORDS SUMMARY | 2024-10-30 10:39 | XMS_ITS | Encounter Summary ---
Author Organization [facility] Address [address] [place] [address] Care Team Providers Care Animal Trainer Supervisor Name Role Phone Orville Asher MD Primary Care Provider [phone] Encounter Details Date Type Department Care Team (Late st Contact Info) Description 05/28/2024 Abstract [facility] [address] [place] [address] Orville Asher MD [address] [place] [address] Social History Tobacco Use Types Packs/Day Years [...] often do you attend chur ch or moravian services? 1 to 4 times per year 03/26/2023 Do you belong to any clubs o r organizations such as bahai groups, unions, fraternal or athletic groups, or [...] and heating? Not hard at all 03/26/2023 [facility] - Occupational [...] place to sleep or slept in a assisted (including now)? No 03/26/2023 Sex and Gender Information Value Date Recorded Sex Assigned at Not on file Legal Sex Male 8:03 PM EDT Gender Identity Not on file Sexual Orientation Not on file documented as of this encounter Plan of Treatment Not on file documented as of this encounter Visit Diagnoses Not on filedocumented in this encounter Care Teams Animal Trainer Supervisor Relationship Specialty Start Date End Date Orville Asher MD PCP - General Family Medicine 01/28/23 documented as of this encounter
--- OUTSIDE RECORDS SUMMARY | 2024-10-30 10:39 | XMS_ITS | Encounter Summary ---
Author Organization [facility] Address [address] [place] [address] Care Team Providers Care Independent Jeweler Name Role Phone Orville Asher MD Primary Care Provider [phone] Encounter Details Date Type Department Care Team (Late st Contact Info) Description 12/18/2023 Clinisync Result Encounter [facility] External Department Unsolicited Provider, Generic External Data Social History Tobacco Use Types Packs/Day Years [...] week 03/26/2023 How often do you attend [facility] or adventist services? 1 to 4 times per year 03/26/2023 Do you belong to any clubs o r organizations such as zoroastrianism groups, unions, fraternal or athletic groups, or [...] and heating? Not hard at all 03/26/2023 [facility] - Occupational Stress [...] place to sleep or slept in a care home (including now)? No 03/26/2023 Sex and Gender Information Value Date Recorded Sex Assigned at Not on file Legal Sex Male 8:03 PM EDT Gender Identity Not on file Sexual Orientation Not on file documented as of this encounter Plan of Treatment Not on file documented as of this encounter Procedures Procedure Name Priority Date/Time Associated Diagnosis Comments XR KNEE 4+ VIEWS LEFT 12/18/2023 11:02 AM EDT documented in this encounter Results * XR knee 4+ views left (12/18/2023 11:02 AM EDT) Anatomical Region Laterality Modality Lower Extremities, Knee Left Radiogra [facility] Imaging 12/18/2023 11:0 2 AM EDT Narrative 12/18/2023 11:04 AM EDT [address] [address] XRay Report Signed Patient: TEE MCKEON MR#: [id number] : 1980 Acct:[id number] Age/Sex: 42 / M ADM Date: 12/17/23 Loc: RAD Attending Dr: Dimitry Fisher M.D. Ordering Physician: Dimitry Fisher M.D. Date of Service: 12/17/23 Procedure(s): XR knee LT 4V Accession Number(s): [id number] cc: Dimitry Fisher M.D.; Orville Asher M.D. [address] [id number] Patient Name: TEE MCKEON MRN: [id number] date: 1980 Sex: M Assigned Patient Location: [facility] Current Patient Location: Accession/Order Number: [id number] Exam Date: 12/17/2023 13:15 Report Date: 12/18/2023 11:02 At the request of: DIMITRY FISHER Procedure: XR knee LT 4V PROCEDURE: XR knee LT 4V HISTORY: Left Knee Pain COMPARISON: None. FINDINGS: BONES:Degenerative enthesophytes along inferior margin of patella at patellar tendon insertion which may be fractured. SOFT TISSUES:No visible soft tissue swelling. EFFUSION:None visible. OTHER: Negative. XR/XR knee LT 4V IMPRESSION: 1. Patient's tender lump corresponds to a degenerative enthesophyte along the anterior inferior margin of the patella. There is a thin lucency through it which may represent a fracture line (history describes no known injury), or this could represent summation artifact from a developmental cleft within the enthesophyte. 2. Otherwise unremarkable knee. Electronically authenticated by: JARON KU Date: 12/18/2023 11:02 Dictated By: Jaron Ku M.D. Signed By: 12/18/23 1104 DD/ 1102 TD/TT: Lvn Lpn: Procedure Note Radiology, Radiologist, MD - 12/18/2023 [place] [address] XRay Report Signed Patient: TEE MCKEON [facility]#: [id number] : 1980Acct:[id number] Age/Sex: 42 / MADM Date: 12/17/23 Loc: [facility] Attending Dr: Dimitry Fisher M.D. Ordering Physician: Dimitry Fisher M.D. Date of Service: 12/17/23 Procedure(s): XR knee LT 4V Accession Number(s): [id number] cc: Dimitry Fisher M.D.; Orville Asher M.D. [facility] [place] [address] Patient Name: TEE MCKEON MRN: [facility]:[id number] date: 1980 Sex: M Assigned Patient Location: [facility] Current Patient Location: Accession/Order Number: [id number] Exam Date: 12/17/2023 13:15 Report Date: 12/18/2023 11:02 At the request of: DIMITRY FISHER Procedure: XR knee LT 4V PROCEDURE: XR knee LT 4V HISTORY: Left Knee Pain COMPARISON: None. FINDINGS: BONES:Degenerative enthesophytes along inferior margin of patella atpatellar tendon insertion which may be fractured. SOFT TISSUES:No visible soft tissue swelling. EFFUSION:None visible. OTHER: Negative. XR/XR knee LT 4V IMPRESSION: 1. Patient's tender lump corresponds to a degenerative enthesophyte alongthe anterior inferior margin of the patella. There is a thin lucency throughit which may represent a fracture line (history describes no known injury),or this could represent summation artifact from a developmental cleft withinthe enthesophyte. 2. Otherwise unremarkable knee. Electronically authenticated by: JARON KU Date: 12/18/2023 11:02 Dictated By: Jaron Ku M.D. Signed By:12/18/23 1104 DD/ 1102 TD/TT: Lvn Lpn: Generic External Data Provider IMG XR PROCEDURES Final Result documented in this encounter Visit Diagnoses Not on filedocumented in this encounter Care Teams Independent Jeweler Relationship Specialty Start Date End Date Orville Asher MD PCP - General Family Medicine 01/28/23 documented as of this encounter
--- OUTSIDE RECORDS SUMMARY | 2024-10-30 10:39 | XMS_ITS | Encounter Summary ---
Author Organization [facility] Address [address] [place] [address] Care Team Providers Care Project Manager Retail Name Role Phone Orville Asher MD Primary Care Provider [phone] Encounter Details Date Type Department Care Team (Late st Contact Info) Description 05/20/2024 Clinisync Result Encounter [facility] External Department Unsolicited [...] week 03/26/2023 How often do you attend [facility] or muslim services? 1 to 4 times per year 03/26/2023 Do you belong to any clubs o r organizations such as shinto groups, unions, fraternal or athletic groups, or [...] and heating? Not hard at all 03/26/2023 [facility] of Occupat ional Health - Occupational Stress [...] place to sleep or slept in a half-way (including now)? No 03/26/2023 Sex and Gender Information Value Date Recorded Sex Assigned at Not on file Legal Sex Male 8:03 PM EDT Gender Identity Not on file Sexual Orientation Not on file documented as of this encounter Plan of Treatment Not on file documented as of this encounter Procedures Procedure Name Priority Date/Time Associated Diagnosis Comments XR ANKLE RT MIN 3V 05/20/2024 12 :50 PM EST documented in this encounter Results * XR ANKLE RT MIN 3V (05/20/2024 12:50 PM EST) Anatomical Region Laterality Modality Other 05/20/2024 12:5 0 PM EST Narrative 05/20/2024 12:53 [place] [address] XRay Report Signed Patient: TEE MCKEON MR#: [id number] : 1980 Acct:[id number] Age/Sex: 43 / M ADM Date: 05/20/24 Loc: RAD Attending Dr: Sebastián Baldwin D.P.M. Ordering Physician: Sebastián Baldwin D.P.M. Date of Service: 05/20/24 Procedure(s): XR ankle RT min 3V Accession Number(s): [id number] cc: Sebastián Baldwin D.P.M.; Orville Asher M.D. The [place] [address] Patient Name: TEE MCKEON MRN: [id number] date: 1980 Sex: M Assigned Patient Location: RAD Current Patient Location: RAD Accession/Order Number: [id number] Exam Date: 05/20/2024 07:45 Report Date: 05/20/2024 12:50 At the request of: SEBASTIÁN BALDWIN Procedure: XR ankle RT min 3V PROCEDURE: XR ankle RT min 3V HISTORY: Right Ankle Pain . COMPARISON: None. FINDINGS: BONES:No fracture, dislocation, articular surface irregularity. Degenerative enthesophytes at the Achilles tendon and plantar aponeurosis insertions into the calcaneus. SOFT TISSUES:No visible soft tissue swelling. EFFUSION:None visible. OTHER: Negative. XR/XR ankle RT min 3V IMPRESSION: 1. No acute bone abnormality or significant degenerative joint disease. 2. Degenerative enthesopathic spurring of the calcaneus of uncertain clinical significance. Electronically authenticated by: JARON KU Date: 05/20/2024 12:50 Dictated By: Jaron Ku M.D. Signed By: 05/20/24 1253 DD/ 1250 TD/TT: Jewelry Polisher: Procedure Note Radiology, Radiologist, MD - 05/20/2024 [place] [address] XRay Report Signed Patient: TEE MCKEON SMR#: [id number] : 1980Acct:[id number] Age/Sex: 43 / MADM Date: 05/20/24 Loc: RAD Attending Dr: Sebastián Baldwin D.P.M. Ordering Physician: Sebastián Baldwin D.P.M. Date of Service: 05/20/24 Procedure(s): XR ankle RT min 3V Accession Number(s): [id number] cc: Sebastián Baldwin D.P.M.; Orville Asher M.D. The [place] [id number] Patient Name: TEE MCKEON MRN: [id number] date: 1980 Sex: M Assigned Patient Location: [facility] Current Patient Location: RAD Accession/Order Number: [id number] Exam Date: 05/20/2024 07:45 Report Date: 05/20/2024 12:50 At the request of: SEBASTIÁN BALDWIN Procedure: XR ankle RT min 3V PROCEDURE: XR ankle RT min 3V HISTORY: Right Ankle Pain . COMPARISON: None. FINDINGS: BONES:No fracture, dislocation, articular surface irregularity.Degenerative enthesophytes at the Achilles tendon and plantar aponeurosis insertionsinto the calcaneus. SOFT TISSUES:No visible soft tissue swelling. EFFUSION:None visible. OTHER: Negative. XR/XR ankle RT min 3V IMPRESSION: 1. No acute bone abnormality or significant degenerative joint disease. 2. Degenerative enthesopathic spurring of the calcaneus of uncertainclinical significance. Electronically authenticated by: JARON KU Date: 05/20/2024 12:50 Dictated By: Jaron Ku M.D. Signed By:05/20/24 1253 DD/ 1250 TD/TT: Jewelry Polisher: us Generic External Data Provider [facility] Final Result documented in this encounter Visit Diagnoses Not on filedocumented in this encounter Care Teams Project Manager Retail Relationship Specialty Start Date End Date Orville Asher MD PCP - General Family Medicine 01/28/23 documented as of this encounter
--- OUTSIDE RECORDS SUMMARY | 2024-10-30 10:39 | XMS_ITS | Encounter Summary ---
Author Organization [facility] Address [address] [place] [address] Care Team Providers Care Catalog Specialist Name Role Phone Orville Asher MD Primary Care Provider [phone] Encounter Details Date Type Department Care Team (Late st Contact Info) Description 07/30/2023 Clinisync Result Encounter [facility] External Department Unsolicited [...] week 03/26/2023 How often do you attend [facility] or temple services? 1 to 4 times per year 03/26/2023 Do you belong to any clubs o r organizations such as baptism groups, unions, fraternal or athletic groups, or [...] and heating? Not hard at all 03/26/2023 [facility] of Occupat ional Health - Occupational Stress [...] place to sleep or slept in a intermediate (including now)? No 03/26/2023 Sex and Gender Information Value Date Recorded Sex Assigned at Not on file Legal Sex Male 8:03 PM EDT Gender Identity Not on file Sexual Orientation Not on file documented as of this encounter Plan of Treatment Not on file documented as of this encounter Procedures Procedure Name Priority Date/Time Associated Diagnosis Comments XR HIP LT MIN 2V 07/30/2023 9:24 AM EDT documented in this encounter Results * XR HIP LT MIN 2V (07/30/2023 9:24 AM EDT) Anatomical Region Laterality Modality Other 07/30/2023 9:24 AM EDT Narrative 07/30/2023 9:27 [place] [address] XRay Report Signed Patient: TEE MCKEON MR#: [id number] : 1980 Acct:[id number] Age/Sex: 42 / M ADM Date: 07/28/23 Loc: RAD Attending Dr: Dimitry Fisher M.D. Ordering Physician: Dimitry Fisher M.D. Date of Service: 07/28/23 Procedure(s): XR hip LT min 2V Accession Number(s): [id number] cc: Dimitry Fisher M.D.; Orville Asher M.D. The [address] [address] Patient Name: TEE MCKEON MRN: [id number] date: 1980 Sex: M Assigned Patient Location: RAD Current Patient Location: Accession/Order Number: [id number] Exam Date: 07/28/2023 09:30 Report Date: 07/30/2023 09:24 At the request of: DIMITRY FISHER Procedure: XR hip LT min 2V PROCEDURE: XR hip LT min 2V HISTORY: left hip pain COMPARISON: None. FINDINGS: BONES:No fracture, acute abnormality, or significant arthropathy. SOFT TISSUES:No visible soft tissue swelling. EFFUSION:None visible. OTHER: Negative. XR/XR hip LT min 2V IMPRESSION: 1. No acute bone abnormality or significant degenerative changes of the left hip. Electronically authenticated by: JARON KU Date: 07/30/2023 09:24 Dictated By: Jaron Ku M.D. Signed By: 07/30/23926 DD/ 3 TD/TT: Project Product Manager: Procedure Note Radiology, Radiologist, MD - 08/02/2023 [place] [address] XRay Report Signed Patient: TEE MCKEON SMR#: [id number] : 1980Acct:[id number] Age/Sex: 42 / MADM Date: 07/28/23 Loc: RAD Attending Dr: Dimitry Fisher M.D. Ordering Physician: Dimitry Fisher M.D. Date of Service: 07/28/23 Procedure(s): XR hip LT min 2V Accession Number(s): [id number] cc: Dimitry Fisher M.D.; Orville Asher M.D. The [place] [address] Patient Name: TEE MCKEON MRN: [id number] date: 1980 Sex: M Assigned Patient Location: RAD Current Patient Location: Accession/Order Number: [id number] Exam Date: 07/28/2023 09:30 Report Date: 07/30/2023 09:24 At the request of: DIMITRY FISHER Procedure: XR hip LT min 2V PROCEDURE: XR hip LT min 2V HISTORY: left hip pain COMPARISON: None. FINDINGS: BONES:No fracture, acute abnormality, or significant arthropathy. SOFT TISSUES:No visible soft tissue swelling. EFFUSION:None visible. OTHER: Negative. XR/XR hip LT min 2V IMPRESSION: 1. No acute bone abnormality or significant degenerative changes of theleft hip. Electronically authenticated by: JARON KU Date: 07/30/2023 09:24 Dictated By: Jaron Ku M.D. Signed By:07/30/23926 DD/ 3 TD/TT: Project Product Manager: us Generic External Data Provider [facility] Final Result documented in this encounter Visit Diagnoses Not on filedocumented in this encounter Care Teams Catalog Specialist Relationship Specialty Start Date End Date Orville Asher MD PCP - General Family Medicine 01/28/23 documented as of this encounter
--- OUTSIDE RECORDS SUMMARY | 2024-10-30 10:39 | XMS_ITS | Clinical Summary ---
Author Organization [facility] Address [id number] [address] [place] [address] Care Team Providers Care Overhauler Helper Name Role Phone Marcie Beckham MD Primary Care Provider [phone] Allergies No known active allergies Medications lisinopril-hydro chlorothiazide (PRINZIDE,ZESTOR ETIC) 10-12.5 mg per tablet Take 1 tablet by mouth daily. Active aspirin 81 mg Take 81 mg by mouth daily. Active Active Problems Problem Noted Date Diagnosed Date Morbid obesity with BMI of 45.0-49.9, adult 11/29 Essential hypertension 12/20/2016 Family History Medical History Relation Name Comments Cancer Father Hypertension Father Prostate cancer Father Arthritis Mother Hypertension Mother Relation Name Status Comments Father Alive Mother Alive Social History Tobacco Use Types Packs/Day Years Used Date Smoking Tobacco: Never Alcohol Use Standard Drinks/Week Comments No 0 (1 standard drink = 0.6 oz pur e alcohol) Childcare Answer Date Recorded Childcare Unknown 10/10/2018 Employment Answer Date Recorded Employment Unknown 10/10/2018 Purpose - Life Answer Date Recorded Purpose and direction in life Unknown Sex and Gender Information Value Date Recorded Sex Assigned at Not on file Legal Sex Male 3:41 PM EDT Gender Identity Not on file Sexual Orientation Not on file Last Filed Vital Signs Vital Sign Reading Time Taken Comments Blood Pressure 140/90 12/27/2016 3:48 PM EDT Pulse - - Temperature - - Respiratory Rate - - Oxygen Saturation - - Inhaled Oxygen Concentration - - Weight 147 kg (324 lb) 12/27/2016 3:48 PM EDT Height 177.8 cm (5' 10 ) 12/27/2016 3:48 PM EDT Body Mass Index 46.49 12/27/2016 3:48 PM EDT Plan of Treatment Health Maintenance Due Date Last Done Comments Depression Screening 1992 Tobacco Screening 1992 Adult BMI Screening 1998 DTaP,Tdap and Td Vaccines (1 - Tdap) 12/27/1999 Influenza Vaccine 12/29/2024 Medical Devices Not on file Insurance [employer] Care Teams Overhauler Helper Relationship Specialty Start Date End Date Marcie Beckham MD PCP - General Family Medicine 12/18/16
--- OUTSIDE RECORDS SUMMARY | 2024-10-30 10:39 | XMS_ITS | Encounter Summary ---
Author Organization [facility] Address [address] [place] [address] Care Team Providers Care Chief Meter Reader Name Role Phone Orville Asher MD Primary Care Provider [phone] Encounter Details Date Type Department Care Team [...] week 03/26/2023 [facility] or quaker services? 1 to 4 times per year 03/26/2023 Do you belong to any clubs o r organizations such as adventist groups, unions, fraternal or athletic groups, or [...] and heating? Not hard at all 03/26/2023 [facility] of Occupat ional Health - Occupational Stress [...] place to sleep or slept in a long-term (including now)? No 03/26/2023 Sex and Gender Information Value Date Recorded Sex Assigned at Not on file Legal Sex Male 8:03 PM EDT Gender Identity Not on file Sexual Orientation Not on file documented as of this encounter Plan of Treatment Not on file documented as of this encounter Procedures Procedure Name Priority Date/Time Associated Diagnosis Comments XR LUMBAR SPINE 6V W BENDING 07/30/2023 10:11 AM EDT documented in this encounter Results * XR LUMBAR SPINE 6V W BENDING (07/30/2023 10:11 AM EDT) Anatomical Region Laterality Modality Other 07/30/2023 10:1 1 AM EDT Narrative 07/30/2023 10:13 [place] [address] XRay Report Signed Patient: TEE MCKEON MR#: [id number] : 1980 Acct:[id number] Age/Sex: 42 / M ADM Date: 07/28/23 Loc: RAD Attending Dr: Dimitry Fisher M.D. Ordering Physician: Dimitry Fisher M.D. Date of Service: 07/28/23 Procedure(s): XR lumbar spine 6V w bending Accession Number(s): [id number] cc: Dimitry Fisher M.D.; Orville Asher M.D. The [address] [address] Patient Name: TEE MCKEON MRN: [id number] date: 1980 Sex: M Assigned Patient Location: RAD Current Patient Location: RAD Accession/Order Number: [id number] Exam Date: 07/28/2023 09:30 Report Date: 07/30/2023 10:11 At the request of: DIMITRY FISHER Procedure: XR lumbar spine 6V w bending EXAMINATION: XR lumbar spine 6V w bending HISTORY: low back pain COMPARISON: No relevant comparison available. FINDINGS: BONES: Mild degenerative facet arthropathy L4-5, L5-S1. No fracture, spondylolisthesis, bone lesion. No change in alignment during flexion and extension. DISC SPACES: Slight narrowing L5-S1. PARASPINOUS: Negative. No paraspinous abnormality is seen. OTHER: Negative. XR/XR lumbar spine 6V w bending IMPRESSION: 1. 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 Electronically authenticated by: JARON KU Date: 07/30/2023 10:11 Dictated By: Jaron Ku M.D. Signed By: 07/30/23 1013 DD/ 1011 TD/TT: Therapy Administrative Assistant: Procedure Note Radiology, Radiologist, MD - 08/02/2023 [place] [address] XRay Report Signed Patient: TEE MCKEON SMR#: [id number] : 1980Acct:[id number] Age/Sex: 42 / MADM Date: 07/28/23 Loc: RAD Attending Dr: Dimitry Fisher M.D. Ordering Physician: Dimitry Fisher M.D. Date of Service: 07/28/23 Procedure(s): XR lumbar spine 6V w bending Accession Number(s): [id number] cc: Dimitry Fisher M.D.; Orville Asher M.D. The [place] [id number] Patient Name: TEE MCKEON MRN: [id number] date: 1980 Sex: M Assigned Patient [facility]: [facility] Current Patient Location: RAD Accession/Order Number: [id number] Exam Date: 07/28/2023 09:30 Report Date: 07/30/2023 10:11 At the request of: DIMITRY FISHER Procedure: XR lumbar spine 6V w bending EXAMINATION: XR lumbar spine 6V w bending HISTORY: low back pain COMPARISON: No relevant comparison available. FINDINGS: BONES: Mild degenerative facet arthropathy L4-5, L5-S1. No fracture, spondylolisthesis, bone lesion. No change in alignment during flexion and extension. DISC SPACES: Slight narrowing L5-S1. PARASPINOUS: Negative. No paraspinous abnormality is seen. OTHER: Negative. XR/XR lumbar spine 6V w bending IMPRESSION: 1. Mild degenerative facet arthropathy and degenerative disc disease oflower lumbar spine. Electronically authenticated by: JARON KU Date: 07/30/2023 10:11 Dictated By: Jaron Ku M.D. Signed By:07/30/23 1013 DD/ 1011 TD/TT: Therapy Administrative Assistant: Generic External Data Provider [facility] Final Result documented in this encounter Visit Diagnoses Not on filedocumented in this encounter Care Teams Chief Meter Reader Relationship Specialty Start Date End Date Orville Asher MD PCP - General Family Medicine 01/28/23 documented as of this encounter
--- OUTSIDE RECORDS SUMMARY | 2024-10-30 10:39 | XMS_ITS | Patient Health Record ---
Author Organization The [facility] [place] Address [address] [place] [address] Care Team Providers Care Survey Research Manager Name Role Phone Orville Asher MD Primary Care Provider UnavailSebastián Smith Unavailable [phone] Allergies No Known Allergies Results Component Value Reference Range Notes XR ankle RT min 3V (Not yet reviewed by provider) Interpretation: Performing Lab: Notes/Report: Source Facility: [place] [address] XRay Report Signed Patient: TEE MCKEON MR#: [id number] : 1980 Acct:[id number] Age/Sex: 43 / M ADM Date: 05/20/24 Loc: RAD Attending Dr: Sebastián Baldwin D.P.M. Ordering Physician: Sebastián Baldwin D.P.M. Date of Service: 05/20/24 Procedure(s): XR ankle RT min 3V Accession Number(s): [id number] cc: Sebastián Baldwin D.P.M.; Orville Asher M.D. The [place] [address] Patient Name: TEE MCKEON MRN: [id number] date: 1980 Sex: M Assigned Patient Location: RAD Current Patient Location: RAD Accession/Order Number: [id number] Exam Date: 05/20/2024 07:45 Report Date: 05/20/2024 [...] of uncertain clinical significance. Electronically authenticated by: NATHAN KU Date: 05/20/2024 12:50 Dictated By: Nathan Ku M.D. Signed By: 05/20/24 1253 DD/ 1250 TD/TT: Bladder Blower: [place] [address] XRay Report Signed Patient: SCOTTY MCKEON MR#: [id number] : 1980 Acct:[id number] Age/Sex: 43 / M ADM Date: 05/20/24 Loc: RAD Attending Dr: Sebastián Baldwin D.P.M. Ordering Physician: Sebastián Baldwin D.P.M. Date of Service: 05/20/24 Procedure(s): XR ankle RT min 3V Accession Number(s): [id number] cc: Sebastián Baldwin D.P.M.; Orville Asher M.D. [place] [address] Patient Name: TEE MCKEON MRN: [id number] date: 1980 Sex: M Assigned Patient Location: [facility] Current Patient Location: RAD Accession/Order Numb er: [id number] Exam Date: 05/20/2024 07:45 Report Date: 05/20/2024 12:50 At the request of: SEBASTIÁN BALDWIN Procedure: XR ankle RT min 3V PROCEDURE: XR ankle RT min 3V HISTORY: Right Ankle Pain . COMPARISON: None. FINDINGS: BONES:No fracture, d islocation, articular surface irregularity. Degenerative enthesophytes at the Achilles tendon and plantar aponeurosis insertions into the calcaneus. SOFT TISSUES:No visi ble soft tissue swelling. EFFUSION:None visible. OTHER: Negative. X R/XR ankle RT min 3V IMPRESSION: 1. No acute bone abn ormality or significant degenerative joint disease. 2. Degenerative enth esopathic spurring of the calcaneus of uncertain clinical significance. Electronically authe nticated by: NATHAN KU Date: 05/20/2024 12:50 Dictated By: Nathan Ku M.D. Signed By: 05/20/24 1253 DD/ 1250 TD/TT: Bladder Blower: Reason For Referral Reason Referral to [facility] PT Diagnosis 1 Nondisplaced avulsio n fracture of tuberosity of right calcaneus, initial encounter for closed fracture (S92.034A) Referral Organization [facility] Referring Provider First Name Sebastián Referring Provider Last Name Nicolasa Referring Provider Speciality Podiatry Referred Provider Specialty Physical The rapist Referral Priority Routine Medications Medication SIG (Take, Route, Frequency, Duration) Notes Start Date End Date Status Meloxicam 15 MG 1 tablet Orally Once a day for 30 days 06/03/2024 Active Aspirin 81 81 MG 1 tablet Orally Once a day 2023 Active Zonisamide 50 MG as directed Orally 10/25/2023 Active Lisinopril-hydroCHLOROthia zide 20-25 MG 1 tablet Orally Once a day 10/25/2023 Active Social History Tobacco Use: Social History Observation Description Date Details (start date - stop date) Never Smoker NA - NA Tobacco Control (Standard) Question Answer Notes Tobacco use: Nonsmoker Problems Problem Type SNOMED Code ICD Code Onset Dates Problem Status W/U Status Risk Notes Problem 045824135 Contracture , right ankle (M24.571) Active confirmed Problem 652112183 Contracture , left ankle (M24.572) Active confirmed Problem Pain in right foot (797189669021139 ) Right foot pain (M79.671) Active confirmed Problem Arthralgia of the ankle and/or foot (681888639) Right ankle pain (M25.571) Active confirmed Problem Pain in left foot (960572053467640 ) Left foot pain (M79.672) Active confirmed Vital Signs Heart Rate 87 /min 06/03/2024 Temperature 98.2 degrees Fahrenheit 06/03/2024 Oximetry 96 % 06/03/2024 Height 70 in 06/03/2024 Weight 320 lbs 05/20/2024 BMI 45.91 kg/m2 05/20/2024 Encounters Encounter Location Date Provider Diagnosis [facility] [address] [place] [address] [place] [address] 06/03/2024 Sebastián Baldwin [facility] [address] [place] [address] [place] [address] 05/20/2024 Sebastián Baldwin Right ankle pain M25.571 and Nondisplaced avulsion fracture of tuberosity of right calcaneus, initial encounter for closed fracture S92.034A [facility] [address] [place] [address] [place] [address] 06/03/2024 Sebastián Baldwin Nondisplaced avulsion fracture of tuberosity of right calcaneus, initial encounter for closed fracture S92.034A Assessments Encounter Date Diagnosis (ICD Code) Assessment Notes Treatment Notes Treatment Clinical Notes Section Notes 05/20/2024 Right ankle pain (ICD-10 - M25.571) 05/20/2024 Nondisplaced avulsion fracture of tuberosity of right calcaneus, initial encounter for closed fracture (ICD-10 - S92.034A) Patient presents for new problem following a slip and fall last week. X-rays and examination are concerning for an avulsion fracture off the lateral wall of the calcaneus. 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 He was placed into a cam boot and may weight-bear as tolerated. I recommended RICE therapy and Tylenol/ibuprofen as needed. No new x-rays needed at follow-up 06/03/2024 Nondisplaced avulsion fracture of tuberosity of [...] weeks or as needed Plan Of Treatment Pending Test Test Name Order Date XR Ankle RT (3 views) * (161) 05/20/2024 XR ankle RT min 3V 05/20/2024 XR foot MANJINDER min 3V 10/25/2023 Insurance Providers Payer Name Payer Address Payer Phone Subscriber Number Group Number Insured Name Patient Relationship to Insured Coverage Start Date Coverage End Date [employer] [address] [address] [place] [phone] [id number] Tee Mckeon Self - patient is the insured Medical (General) History Medical History History ICD Code hypertension
--- OUTSIDE RECORDS SUMMARY | 2024-10-30 10:39 | XMS_ITS | Encounter Summary ---
Author Organization [facility] Address [address] [place] [address] Care Team Providers Care Correspondence Clerk Name Role Phone Orville Asher MD Primary Care Provider [phone] Encounter Details Date Type Department Care Team (Late st Contact Info) Description 10/25/2023 Clinisync Result Encounter [facility] External Department Unsolicited [...] week 03/26/2023 [facility] services? 1 to 4 times per year 03/26/2023 Do you belong to any clubs o r organizations such as rastafari groups, unions, fraternal or athletic groups, or [...] and heating? Not hard at all 03/26/2023 [facility] - Occupational Stress [...] place to sleep or slept in a correction (including now)? No 03/26/2023 Sex and Gender Information Value Date Recorded Sex Assigned at Not on file Legal Sex Male 8:03 PM EDT Gender Identity Not on file Sexual Orientation Not on file documented as of this encounter Plan of Treatment Not on file documented as of this encounter Procedures Procedure Name Priority Date/Time Associated Diagnosis Comments XR FOOT MANJINDER MIN 3 VIEWS 10/25/2023 3:49 PM EDT documented in this encounter Results * XR FOOT MANJINDER MIN 3 VIEWS (10/25/2023 3:49 PM EDT) Anatomical Region Laterality Modality Other 10/25/2023 3:49 PM EDT Narrative 10/25/2023 3:51 PM EDT [address] [address] XRay Report Signed Patient: TEE MCKEON MR#: [id number] : 1980 Acct:[id number] Age/Sex: 42 / M ADM Date: 10/25/23 Loc: EC Attending Dr: Uziel Quintanilla Ordering Physician: Uziel Quintanilla Date of Service: 10/25/23 Procedure(s): XR foot MANJINDER min 3V Accession Number(s): [id number] cc: Uziel Quintanilla; Orville Asher M.D. The [address] [address] Patient Name: TEE MCKEON MRN: [id number] date: 1980 Sex: M Assigned Patient Location: EC Current Patient Location: EC Accession/Order Number: [id number] Exam Date: 10/25/2023 14:52 Report Date: 10/25/2023 15:49 At the request of: UZIEL QUINTANILLA Procedure: XR foot MANJINDER min 3V EXAMINATION: XR foot MANJINDER min 3V HISTORY: BILATERAL FOOT PAIN COMPARISON: No relevant comparison available. FINDINGS: RIGHT FINDINGS: BONES: No acute fracture or dislocation. Moderate enthesopathic spurring of the calcaneus at the Achilles and plantar insertions. Degenerative changes with mid foot with marginal osteophyte formation SOFT TISSUES: Negative. No visible soft tissue swelling. OTHER: Negative. LEFT FINDINGS: BONES: No acute fracture or dislocation. Moderate enthesopathic spurring of the calcaneus at the Achilles and plantar insertions. Degenerative changes with mid foot with marginal osteophyte formation SOFT TISSUES: Negative. No visible soft tissue swelling. OTHER: Negative. XR/XR foot MANJINDER min 3V IMPRESSION: Moderate bilateral calcaneal enthesopathy Electronically authenticated by: FAVIO PERES Date: 10/25/2023 15:49 Dictated By: Favio Peres M.D. Signed By: 10/25/23 1551 DD/ 1549 TD/TT: Incident Commander: Procedure Note Radiology, Radiologist, MD - 10/25/2023 The [place] [id number] XRay Report Signed Patient: TEE MCKEON SMR#: [id number] : 1980Acct:[id number] Age/Sex: 42 / MADM Date: 10/25/23 Loc: EC Attending Dr: Uziel Quintanilla Ordering Physician: Uziel Quintanilla Date of Service: 10/25/23 Procedure(s): XR foot MANJINDER min 3V Accession Number(s): [id number] cc: Uziel Quintanilla; Orville Asher M.D. The [address] [address] Patient Name: TEE MCKEON MRN: [id number] date: 1980 Sex: M Assigned Patient Location: Current Patient Location: Accession/Order Number: [id number] Exam Date: 10/25/2023 14:52 Report Date: 10/25/2023 15:49 At the request of: UZIEL QUINTANILLA Procedure: XR foot MANJINDER min 3V EXAMINATION: XR foot MANJINDER min 3V HISTORY: BILATERAL FOOT PAIN COMPARISON: No relevant comparison available. FINDINGS: RIGHT FINDINGS: BONES: No acute fracture or dislocation. Moderate enthesopathic spurringof the calcaneus at the Achilles and plantar insertions. Degenerative changeswith mid foot with marginal osteophyte formation SOFT TISSUES: Negative. No visible soft tissue swelling. OTHER: Negative. LEFT FINDINGS: BONES: No acute fracture or dislocation. Moderate enthesopathic spurringof the calcaneus at the Achilles and plantar insertions. Degenerative changeswith mid foot with marginal osteophyte formation SOFT TISSUES: Negative. No visible soft tissue swelling. OTHER: Negative. XR/XR foot MANJINDER min 3V IMPRESSION: Moderate bilateral calcaneal enthesopathy Electronically authenticated by: FAVIO PERES Date: 10/25/2023 15:49 Dictated By: Favio Peres M.D. Signed By:10/25/23 1551 DD/ 1549 TD/TT: Incident Commander: us Generic External Data Provider [facility] Final Result documented in this encounter Visit Diagnoses Not on filedocumented in this encounter Care Teams Correspondence Clerk Relationship Specialty Start Date End Date Orville Asher MD PCP - General Family Medicine 01/28/23 documented as of this encounter
--- OUTSIDE RECORDS SUMMARY | 2024-10-30 10:39 | XMS_ITS | Encounter Summary ---
Author Organization [facility] Address [address] [place] [address] Care Team Providers Care Nutrition Aide Name Role Phone Orville Asher MD Primary Care Provider [phone] Encounter Details Date Type Department Care Team (Late st Contact Info) Description 07/30/2023 Orders Only [facility] [address] [place] [address] Dimitry Ramírez MD [address] [place] [address], [address], [address] [place] [address] Social History Tobacco Use Types Packs/Day Years [...] often do you attend chur ch or gnosticist services? 1 to 4 times per year 03/26/2023 Do you belong to any clubs o r organizations such as hinduism groups, unions, fraternal or athletic groups, or [...] and heating? Not hard at all 03/26/2023 [facility] - Occupational [...] Priority Date/Time Associated Diagnosis Comments XR HIP 2-3 VIEWS LEFT Routine 07/30/2023 2:56 PM EDT XR LUMBAR SPINE 6+ VIEWS INCLUDING OBLIQUE FLEXION EXTENSION Routine 07/30/2023 11:58 AM EDT documented in this encounter Results * XR HIP 2-3 VIEWS LEFT (07/30/2023 2:56 PM EDT) Anatomical Region Laterality Modality Radiographic Huyen ging Dimitry Ramírez MD [facility] XR PROCEDURES F inal Result * XR lumbar spine 6+ views including oblique flexion extension (07/30/2023 11:58 AM EDT) Anatomical Region Laterality Modality Spine, L-spine Radiographic Huyen ging us Dimitry Ramírez MD IMG XR PROCEDURES F inal Result documented in this encounter Visit Diagnoses Not on filedocumented in this encounter Care Teams Nutrition Aide Relationship Specialty Start Date End Date Orville Asher MD PCP - General Family Medicine 01/28/23 documented as of this encounter
--- OUTSIDE RECORDS SUMMARY | 2024-10-30 10:40 | XMS_ITS | Clinical Summary ---
Author Organization [facility] Address [address] [place] [address] Care Team Providers Care Store Host Name Role Phone Orville Asher MD Primary Care Provider [phone] Allergies No known active allergies Medications lisinopril-hydro CHLOROthiazide 20-25 MG tabletIndication s:Essential hypertension, benign TAKE 1 TABLET BY MOUTH DAILY 90 tablet 3 04/11/2024 Active Active Problems Problem Noted Date Diagnosed Date Essential hypertension, benign 03/27/2023 Assessment & Plan (03/27/2023 3:03 PM EST): BP improved and monitor PRN. Discussed DASH diet. Gout, unspecified 03/27/2023 Psoriasis 03/27/2023 Calcaneal spur of both feet 03/27/2023 Assessment & Plan (03/27/2023 3:04 PM EST): Recently with increased pain and treat with prednisone. If no improvement return to podiatry. BASILIO (obstructive sleep apnea) 03/27/2023 Assessment & Plan (03/27/2023 3:05 PM EST): Continued symptoms and will need titration study. New insurance in April and will order test then. Morbid obesity with BMI of 45.0-49.9, adult 11/29 Family History Medical History Relation Name Comments Hypertension Brother Hypertension Father Hypertension Mother Hypertension Sister Relation Name Status Comments Brother Father Mother Sister Social History Tobacco Use Types Packs/Day Years Used Date Smoking Tobacco: Never Smokeless Tobacco: Never Tobacco Cessation:Counseling Given: Not Answered Alcohol Use Standard Drinks/Week Comments Never 0 [...] often do you attend chur ch or scientologist services? 1 to 4 times per year 03/26/2023 Do you belong to any clubs o r organizations such as restoration groups, unions, fraternal or athletic groups, or [...] and heating? Not hard at all 03/26/2023 [facility] - Occupational Stress [...] Sign Reading Time Taken Comments Blood Pressure 130/90 03/27/2023 2:31 PM EST Pulse 99 03/27/2023 2:31 PM EST Temperature 35.3 C (95.5 F) 03/27/2023 2:31 PM EST Respiratory Rate - - Oxygen Saturation 97% 03/27/2023 2:31 PM EST Inhaled Oxygen Concentration - - Weight 157 kg (347 lb) 03/27/2023 2:31 PM EST Height 177.8 cm (5' 10 ) 03/27/2023 2:31 PM EST Body Mass Index 49.79 03/27/2023 2:31 PM EST Plan of Treatment Health Maintenance Due Date Last Done Comments Influenza Vaccine (Season Ended) 2024 Insurance [employer] Care Teams Store Host Relationship Specialty Start Date End Date Orville Asher MD PCP - General Family Medicine 01/28/23
--- NOTE | 2024-10-30 10:41 | XR_ITS ---
The [place] [id number] Patient Name: ROLLY LANDA MRN: [id number] date: 1980 Sex: M Assigned Patient Location: ED.MAIN Current Patient Location: ED.MAIN Accession/Order Number: [id number] Exam Date: 10/30/2024 10:54 Report Date: 10/30/2024 10:55 At the request of: JEANCARLOS MAZARIEGOS MD Procedure: XR knee RT 3V RIGHT KNEE - 3 views COMPARISON: None CLINICAL DATA: Right knee pain since last night. No injury. AP, lateral and internal oblique views were obtained. There is no acute fracture or dislocation. There is no disproportionate joint space narrowing. There is minor marginal spurring. A tiny enthesophyte is present at the insertion of the quadriceps tendon. A trace amount of joint fluid is seen. There are varicosities at the medial aspect of the knee. XR/XR knee RT 3V IMPRESSION: MINOR DEGENERATIVE CHANGE. NO ACUTE BONY FINDINGS. Impression dictated by: Angie Chinchilla M.D. 10/30/2024 10:55 AM Dictation Location: [place] [address] Electronically authenticated by: [id number] Y Date: 10/30/2024 10:55
--- NOTE | 2024-10-30 10:43 | ED_ITS ---
HPI HPI - General Adult General Chief complaint: Extremity Problem, Nontraumatic Stated complaint: LOWER EXTREMITY PAIN - R KNEE Time Seen by Provider: 10/30/24 10:35 Source: patient Mode of arrival: walk-in History of Present Illness HPI narrative: 43-year-old male presents for right knee pain. It started yesterday without any trauma. It felt uncomfortable and he was a bit restless because his knee was hurting. He went to work today and was kneeling for his job and it got worse. Again, he did not have any injury. He has never had any problems with his knee before. No pain in the calf right hip or ankle. He describes having some pain up in his thigh area as well and his is concerned about a disc problem. Related Data Home Medications ?Medication ?Instructions ?Recorded ?Confirmed baclofen 10 mg tablet 10 mg PO DAILY PRN muscle sp asm 12/25/23 10/30/24 lisinopril 20 1 tab PO DAILY 12/25/23 0707/22 mg-hydrochlorothiazide 25 mg tablet Previous Rx's ?Medication ?Instructions ?Recorded acetaminophen 300 mg-codeine 30 mg 1 tab PO Q6H PRN pa in 5 days #20 10/30/24 tablet tabs prednisone 10 mg tablet See Rx Instructions .Route 0 10/30/24 .COMPLEX #30 tabs Allergies Allergy/AdvReac Type Severity Reaction Status Date / Time No Known Drug Allergies Allergy Verified 02/28/24 18:04 Review of Systems ROS Narrative A ten point review of systems is negative except as noted above. [facility] Medical History (Updated 10/30/24 @ 11:40 by Alon Schneider MD) Heel spur ?M77.30 - Calcaneal spur, unspecified foot (ICD-10) Kidney stone ?N20.0 - Calculus of kidney (ICD-10) HTN (hypertension) ?I10 - Essential (primary) hypertension (ICD-10) Surgical History (Updated 12/25/23 @ 08:30 by Gabriela Mckeon RN) History of lithotripsy ?Z98.890 - Other specified postprocedural states (ICD-10) Social History Little interest or pleasure in doing things: not at all Feeling down, depressed, or hopeless: not at all Exam Narrative Exam Narrative: Nurses note and vital signs reviewed and patient is not hypoxic. General: The patient appears well and in no apparent distress. Patient is resting comfortably on cart. Skin: Warm, dry, no pallor noted. There is no rash noted. Head: Normocephalic, atraumatic Eye: Normal conjunctiva, no drainage Ears, Nose, Mouth, and Throat: oral mucosa is moist. Nares patent. Cardiovascular: Regular Rate and Rhythm Respiratory: Patient is in no distress, no accessory muscle use Back: non-tender GI: Soft and nontender Musculoskeletal: The right knee is examined. It is not erythematous or swollen or warm to touch. It has good range of motion and is stable. He has psoriasis on the anterior surface of both knees. Neurological: A&O, normal speech Psychiatric: Cooperative Constitutional Vital Signs, click to edit/add: Last Vital Signs Temp 97.7 F 10/30/24 10:31 Pulse 85 10/30/24 10:31 Resp 16 10/30/24 10:31 BP 145/87 H 10/30/24 10:31 Pulse Ox 98 10/30/24 10:31 O2 Del Method Room Air 10/30/24 10:31 Course Vital Signs Vital signs: Vital Signs Temperature 97.7 F 10/30/24 10:31 Pulse Rate 85 10/30/24 10:31 Respiratory Rate 16 10/30/24 10:31 Blood Pressure 145/87 H 10/30/24 10:31 Pulse Oximetry 98 10/30/24 10:31 Oxygen Delivery Method Room Air 10/30/24 10:31 Temperature 97.7 F 10/30/24 10:31 Pulse Rate 85 10/30/24 10:31 Respiratory Rate 16 10/30/24 10:31 Blood Pressure 145/87 H 10/30/24 10:31 Pulse Oximetry 98 10/30/24 10:31 Oxygen Delivery Method Room Air 10/30/24 10:31 Medical Decision Making [facility] Narrative Medical decision making narrative: X-rays of lumbar and his knee show some mild degenerative changes, no acute findings. He will be treated with Tylenol 3 and prednisone and follow-up with orthopedics. Treatment diagnosis and follow-up were discussed with the patient. Differential Diagnosis Differential Diagnosis: Arthritis, lumbar radiculopathy Imaging Data Knee, lumbar x-rays: Radiologist's impression: ITS Impressions Knee X-Ray 10/30/24 10:41 IMPRESSION: MINOR DEGENERATIVE CHANGE. NO ACUTE BONY FINDINGS. Impression dictated by: Angie Chinchilla M.D. 10/30/2024 10:55 AM Dictation Location: [place] [address] Electronically authenticated by: [id number] Y Date: 10/30/2024 10:55 Lumbar Spine X-Ray 10/30/24 11:07 IMPRESSION: MILD DEGENERATIVE CHANGES. NO ACUTE BONY FINDINGS. Impression dictated by: Angie Chinchilla M.D. 10/30/2024 11:26 AM Dictation Location: [place] [address] Electronically authenticated by: [id number] Y Date: 10/30/2024 11:26 Discharge Plan Discharge Chief Complaint: Extremity Problem, Nontraumatic Clinical Impression: Acute pain of right knee, Lumbar radiculopathy Patient Disposition: Home, Self-Care Time of Disposition Decision: 11:40 Condition: Good Mode of Transportation: Private Vehicle Prescriptions / Home Meds: New acetaminophen-codeine 300-30 mg tablet 1 tab PO Q6H PRN (Reason: pain) 5 Days Qty: 20 0RF prednisone 10 mg tablet See Rx Instructions .ROUTE .COMPLEX Qty: 30 0RF Rx Instructions: 4 by mouth daily for three days then 3 by mouth daily for three days then 2 by mouth daily for three days then 1 by mouth daily for three days No Action baclofen 10 mg tablet 10 mg PO DAILY PRN (Reason: muscle spasm) lisinopril-hydrochlorothiazide 20-25 mg tablet 1 tab PO DAILY Print Language: Maltese Instructions: Lumbar Radiculopathy (ED), Knee Pain (ED) Referrals: Orville Asher MD [Primary Care Provider, Family Practice] - 1 week ROLO WALKER [Referring] - 1 week
--- OUTSIDE RECORDS SUMMARY | 2024-10-30 11:00 | XMS_ITS | CCD ---
Author Organization [facility] Care Team Providers Care Mechanical Lead Name Role Phone DR CHANTELL MALAVE Primary [...] take 1 tablet by mouth once daily Lisinopril-[place] chlorothiazide Active 1 TAB PO Daily February [...] 10-20-2020 BASO # 0.0 103/ul Normal 0.0-0.[address] [facility] Comment on above: Performed By: #### C BC #### [facility] [address] [address] Sara Angie Basophils/100 WBC (Bld) 0.4 % Normal 0.2-2.0 [facility] Comment on above: Performed By: #### C BC #### [facility] [address] [place] [address] Sara Angie EO # 0.2 103/ul Normal 0.0-0.[address] [facility] Comment on above: Performed By: #### C BC #### [facility] [address] [place] [address] Sara Angie Eosinophils/100 WBC (Bld) 3.1 % Normal 0.9-7.0 [facility] Comment on above: Performed By: #### C BC #### [facility] [address] [place] [address] Sara Angie Erythrocyte distribution width (RBC) [Ratio] 12.8 % Normal 11.0-15.0 [facility] Comment on above: Performed By: #### C BC #### [facility] [address] [place] [address] Sara Angie Hematocrit (Bld) [Volume fraction] 44.8 % Normal 42.0-54.0 [facility] Comment on above: Performed By: #### C BC #### [facility] [address] [place], [place] [address] Sara Angie Hemoglobin (Bld) [Mass/Vol] 14.8 g/dL Normal 14.0-18.0 [facility] Comment on above: Performed By: #### C BC #### [facility] [address] [place] [address] Saramalachi Adams IG # 0.02 10e3/ul Normal 0.00-0.[address] [facility] Comment on above: Performed By: #### C BC #### [facility] [address] [address] Saramalachi Adams IG % 0.3 % Normal 0.0-0.[address] [facility] Comment on above: Performed By: #### C BC #### [facility] [address] [address] Saramalachi Adams LYMPH # 2.5 103/ul Normal 1.2-3.[address] [facility] Comment on above: Performed By: #### C BC #### [facility] [address] [address] Sara Adams Lymphocytes/100 WBC (Bld) 33.4 % Normal 20.5-60.[address] [facility] Comment on above: Performed By: #### C BC #### [facility] [address] [place] [address] Sara Adams MANUAL DIFF REQ NO Normal [facility] Comment on above: Performed By: #### C BC #### [facility] [address] [place] [address] Sara Adams MCH (RBC) [Entitic mass] 29.2 pg Normal 25.9-34.[address] [facility] Comment on above: Performed By: #### C BC #### [facility] [address] [place] [address] Sara Adams MCHC (RBC) [Mass/Vol] 33.0 g/dL Normal 29.9-35.[address] [facility] Comment on above: Performed By: #### C BC #### [facility] [address] [address] Saramalachi Adams MCV (RBC) [Entitic vol] 88.4 fL Normal 80.0-94.[address] [facility] Comment on above: Performed By: #### C BC #### [facility] [address] [address] Sara Angie MONO # 0.5 103/ul Normal 0.3-0.8 [facility] Comment on above: Performed By: #### C BC #### [facility] [address] [place], [place] [address] Sara Duranen Monocytes/100 WBC (Bld) 7.0 % Normal 1.7-12.[address] [facility] Comment on above: Performed By: #### C BC #### [facility] [address] [id number] Sara Adams NEUT # 4.2 103/ul Normal 1.4-6.[address] [facility] Comment on above: Performed By: #### C BC #### [facility] [address] [place], [place] [address] Sara Adams Neutrophils/100 WBC (Bld) 55.8 % Normal 43.0-75.[address] [facility] Comment on above: Performed By: #### C BC #### [facility] [address] [place], [place] [address] Sara Adams Platelet mean volume (Bld) [Entitic vol] 10.7 fL Normal 9.5-13.[address] [facility] Comment on above: Performed By: #### C BC #### [facility] [address] [place], [place] [address] Saramalachi Duranen PLT 239 103/ul Normal 150-[address] [facility] Comment on above: Performed By: #### C BC #### [facility] [address] [place], [place] [address] Sara Angie RBC 5.07 106/ul Normal 4.70-6.10 [facility] Comment on above: Performed By: #### C BC #### [facility] [address] [place], [place] [address] Sara Angie WBC 7.5 103/ul Normal 4.0-11.0 [facility] Comment on above: Performed By: #### C BC #### [facility] [address] [place], [place] [address] Sara Adams GLYCOHEMOGLOBIN A1Con 2020 ADA RECOMMENDATION ADA THERAPEUTIC TARGET 6.0 - 7.0 ACTION SUGGESTED > 7.0 Normal [facility] Comment on above: Performed By: #### A 1C #### [facility] [address] [place], [place] [address] Sara Angie Glucose [Mass/Vol] 120 mg/dL Normal [facility] Comment on above: Performed By: #### A 1C #### [facility] [address] [place], [place] [address] Sara Angie HbA1c (Bld) [Mass fraction] 5.8 % Normal <=6.[address] [facility] Comment on above: Performed By: #### A 1C #### [facility] [address] [place], [place] [address] Sara Angie LIPID PROFILEon 10-20-2020 CHOL-HDL RATIO NORM SEE BELOW Normal [facility] Comment on above: Result Comment: 3.3 - 4.4 LOW RISK 4.4 - 7.1 AVERAGE RISK 7.1 - 11.0 MODERATE RISK >11.0 HIGH RISK Performed By: #### C MP, LIPID, PSASC #### [facility] [address] [address] Sara Angie Cholesterol [Mass/Vol] 166 mg/dL Normal <=[address] [facility] Comment on above: Performed By: #### C MP, LIPID, PSASC #### [facility] [address] [address] Sara Angie Cholesterol in HDL [Mass/Vol] 46 mg/dL Normal [facility] Comment on above: Performed By: #### C MP, LIPID, PSASC #### [facility] [address] [address] Sara Angie Cholesterol in LDL [Mass/Vol] 104.6 mg/dL Normal [facility] Comment on above: Performed By: #### C MP, LIPID, PSASC #### [facility] [address] [address] Sara Angie Cholesterol.total/Cho lesterol in HDL [Mass ratio] 3.6 {ratio} Normal [facility] Comment on above: Performed By: #### C MP, LIPID, PSASC #### [facility] [address] [address] Sara Angie HDL NORMAL > or = 60 mg/dl - LOW CARDIOVASCULAR RISK <40 mg/dl - HIGH CARDIOVASCULAR RISK Normal [facility] Comment on above: Performed By: #### C MP, LIPID, PSASC #### [facility] [address] [place], [place] [address] Sara Angie LDL CALC NORMAL SEE BELOW Normal [facility] Comment on above: Result Comment: <100 mg/dl OPTIMAL 100 - 129 mg/dl NEAR OR ABOVE OPTIMAL 130 - 159 mg/dl BORDERLINE HIGH 160 - 189 mg/dl HIGH >190 mg/dl VERY HIGH Performed By: #### C MP, LIPID, PSASC #### [facility] [address] [place], [place] [address] Sara Angie Triglyceride [Mass/Vol] 77 mg/dL Normal <=[address] [facility] Comment on above: Performed By: #### C MP, LIPID, PSASC #### [facility] [address] [place], [place] [address] Sara Angie VLDL CALC 15.4 mg/dL Normal [facility] Comment on above: Performed By: #### C MP, LIPID, PSASC #### [facility] [address] [place], [place] [address] Saramalachi Duranen PROF 14(COMP METB)on 021 Albumin [Mass/Vol] 3.4 g/dL Critically low 3.5-5.0 [facility] Comment on above: Performed By: #### C MP, LIPID, PSASC #### [facility] [address] [address] Sara Angie Albumin/Globulin [Mass ratio] 0.8 {ratio} Normal [facility] Comment on above: Performed By: #### C MP, LIPID, PSASC #### [facility] [address] [place], [place] [address] Sara Angie ALP [Catalytic activity/Vol] 80 U/L Normal 38-[address] [facility] Comment on above: Performed By: #### C MP, LIPID, PSASC #### [facility] [address] [place], [place] [address] Sara Angie ALT [Catalytic activity/Vol] 55 U/L Normal 21-[address] [facility] Comment on above: Performed By: #### C MP, LIPID, PSASC #### [facility] [address] [address] Sara Angie Anion gap [Moles/Vol] 11.4 mmol/L Normal [facility] Comment on above: Performed By: #### C MP, LIPID, PSASC #### [facility] [address] [address] Sara Angie AST [Catalytic activity/Vol] 26 U/L Normal 17-[address] [facility] Comment on above: Performed By: #### C MP, LIPID, PSASC #### [facility] [address] [place] [address] Sara Angie Bilirubin [Mass/Vol] 0.5 mg/dL Normal 0.2-1.[address] [facility] Comment on above: Performed By: #### C MP, LIPID, PSASC #### [facility] [address] [place] [address] Saar Angie Calcium [Mass/Vol] 9.1 mg/dL Normal 8.4-10.2 [facility] Comment on above: Performed By: #### C MP, LIPID, PSASC #### [facility] [address] [place] [address] Sara Angie Chloride [Moles/Vol] 106 mmol/L Normal 98-[address] [facility] Comment on above: Performed By: #### C MP, LIPID, PSASC #### [facility] [address] [place] [address] Sara Angie CO2 [Moles/Vol] 30.9 mmol/L Critically high 22.0-30.0 [facility] Comment on above: Performed By: #### C MP, LIPID, PSASC #### [facility] [address] [place] [address] Sara Angie Creatinine [Mass/Vol] 0.95 mg/dL Normal 0.66-1.[address] [facility] Comment on above: Performed By: #### C MP, LIPID, PSASC #### [facility] [address] [place], [place] [address] Sara Angie EGFR-AF SENEGALESE >60 Normal >=60 [facility] Comment on above: Performed By: #### C MP, LIPID, PSASC #### [facility] [address] [place] [address] Sara Angie EGFR-NON AF SENEGALESE >60 Normal >=[address] [facility] Comment on above: Performed By: #### C MP, LIPID, PSASC #### [facility] [address] [place] [address] Sara Angie Globulin (S) [Mass/Vol] 4.1 g/dL Normal [facility] Comment on above: Performed By: #### C MP, LIPID, PSASC #### [facility] [address] [place] [address] Sara Angie Glucose [Mass/Vol] 106 mg/dL Normal 74-106 [facility] Comment on above: Performed By: #### C MP, LIPID, PSASC #### [facility] [address] [place] [address] Sara Angie Potassium [Moles/Vol] 4.3 mmol/L Normal 3.4-5.0 [facility] Comment on above: Performed By: #### C MP, LIPID, PSASC #### [facility] [address] [place] [address] Sara Angie Protein [Mass/Vol] 7.5 g/dL Normal 6.1-8.2 [facility] Comment on above: Performed By: #### C MP, LIPID, PSASC #### [facility] [address] [place] [address] Sara Angie Sodium [Moles/Vol] 144 mmol/L Normal 137-145 [facility] Comment on above: Performed By: #### C MP, LIPID, PSASC #### [facility] [address] [place] [address] Sara Angie Urea nitrogen [Mass/Vol] 11.0 mg/dL Normal 9.0-20.[address] [facility] Comment on above: Performed By: #### C MP, LIPID, PSASC #### [facility] [address] [place], [place] [address] Sara Adams Urea nitrogen/Creatinine [Mass ratio] 11.6 mg/mg Normal [facility] Comment on above: Performed By: #### C MP, LIPID, PSASC #### [facility] [address] [place], [place] [address] Sara Adams Encounters Encounter Date Encounter Type Care Provider Facility Start: 02-28-2024 End: 02-28-2024 ambulatory [facility] Work Phone: Start: 02-28-2024 End: 02-28-2024 Patient encounter procedure [facility] Work Phone: Start: 02-26-2024 End: 02-26-2024 ambulatory [facility] Work Phone: Start: 02-26-2024 End: 02-26-2024 Patient encounter procedure [facility] Work Phone: Start: 03-27-2023 End: 03-27-2023 ambulatory KELSI SILVA Not Available Start: 10-25-2020 Encounter for genera l adult medical examination without abnormal findings DR CHANTELL MALAVE [facility] Start: 10-20-2020 End: 10-21-[address] CHANTELL [...] By: #### C MP, LIPID, PSASC #### [facility] [address] [id number] Sara Adams Payers Date Payer Category Payer Unknown [id number] [id number] [id number] 1980 Unknown [id number] 1959 Self-pay 1959 Unknown [id number] Unknown [id number] [id number] [id number] Unknown [id number] [id number] Unknown [employer] [id number] Social History Date Type Detail Facility Tobacco smoking stat [facility] Unknown if ever smoked [facility] Work Phone: Start: 1980 Sex Assigned At Male [facility] Start: 02-28-2024 Tobacco smoking stat [facility] Never smoked tobacco (finding) [facility] Evaluation note Note Date & Type Note Facility Evaluation note No assessment information availa ble [facility] Work Phone: Summary Purpose Family History No [...] DATE CREATED AUTHOR AUTHOR'S ORGANIZ ATION 03/29/2023 [facility] EPIC Care Teams (unrecognized [...] February 28, 2024 End: February 28, 2024 Aiyln Abad APRN Attending Provider Active Start: February [...] BE BASED ON THE PRIMARY CLINICAL RECORDS. [employer] [facility]. provides no warranty or guarantee of the accuracy or completeness of information in this document.
--- NOTE | 2024-10-30 11:07 | XR_ITS ---
The [address] [address] Patient Name: ROLLY LANDA MRN: [id number] date: 1980 Sex: M Assigned Patient Location: ER Current Patient Location: ER Accession/Order Number: [id number] Exam Date: 10/30/2024 11:23 Report Date: 10/30/2024 11:26 At the request of: JEANCARLOS MAZARIEGOS MD Procedure: XR lumbar spine 2-3V LUMBAR SPINE. - 3 views: CLINICAL HISTORY: Right leg pain radiating from the hip to the knee since last night. No injury. COMPARISON: 07/28/2023 AP as well as lateral lumbar and lumbosacral views were obtained. There are small 12th ribs. There is no evidence of fracture. Alignment is maintained on the lateral view. The disc spaces are stable in height. There is minor endplate spurring and mild lower lumbar facet disease. The sacroiliac joints are maintained. There are no paraspinal soft tissue abnormalities. XR/XR lumbar spine 2-3V IMPRESSION: MILD DEGENERATIVE CHANGES. NO ACUTE BONY FINDINGS. Impression dictated by: Angie Chinchilla M.D. 10/30/2024 11:26 AM Dictation Location: [address] [address] Electronically authenticated by: [id number] Y Date: 10/30/2024 11:26
== END 2024-10-30 11:53 | disposition home or self-care (01) ==
PROVIDERS: Emergency Provider Emergency Medicine; PCP Family Medicine
DX: M25.561 Pain in right knee (principal); M51.16 Intervertebral disc disorders with radiculopathy, lumbar region; M48.062 Spinal stenosis, lumbar region with neurogenic claudication
CPT/HCPCS: 72100; 73562; 99284; G0463

== ENCOUNTER 2024-10-30 12:20 | Outpatient (OUT) | payer BC, SELFPAY ==
--- OUTSIDE RECORDS SUMMARY | 2024-10-30 12:22 | XMS_ITS | Encounter Summary ---
Author Organization [facility] Address [address] [place] [address] Care Team Providers Care Pipe Line Walker Name Role Phone Orville Asher MD Primary Care Provider [phone] Encounter Details Date Type Department Care Team [...] How often do you attend [facility] or restorationist services? 1 to 4 times per year 03/26/2023 Do you belong to any clubs o r organizations such as hindu groups, unions, fraternal or athletic groups, or [...] and heating? Not hard at all 03/26/2023 [facility] - Occupational [...] place to sleep or slept in a skilled nursing (including now)? No 03/26/2023 Sex and Gender [...] Laterality Modality Lower Extremities, Knee Left [facility] 12/18/2023 11:0 2 AM EDT Narrative 12/18/2023 11:04 AM EDT [address] [address] XRay Report Signed Patient: TEE MCKEON MR#: [id number] : 1980 Acct:[id number] Age/Sex: 42 / M ADM Date: 12/17/23 Loc: RAD Attending Dr: Dimitry Fisher M.D. Ordering Physician: Dimitry Fisher M.D. Date of Service: 12/17/23 Procedure(s): XR knee LT 4V Accession Number(s): [id number] cc: Dimitry Fisher M.D.; Orville Asher M.D. [address] [id number] Patient Name: TEE MCKEON MRN: [id number] date: 1980 Sex: M Assigned Patient Location: [facility] Current Patient Location: Accession/Order Number: [id number] Exam Date: 12/17/2023 13:15 Report Date: 12/18/2023 [...] Signed By: 12/18/23 1104 DD/ 1102 TD/TT: Glass Forming Crew Member: Procedure Note Radiology, Radiologist, MD - 12/18/2023 [place] [address] XRay Report Signed Patient: TEE MCKEON [facility]#: [id number] : 1980Acct:[id number] Age/Sex: 42 / MADM Date: 12/17/23 Loc: [facility] Attending Dr: Dimitry Fisher M.D. Ordering Physician: Dimitry Fisher M.D. Date of Service: 12/17/23 Procedure(s): XR knee LT 4V Accession Number(s): [id number] cc: Dimitry Fisher M.D.; Orville Asher M.D. The [place] [address] Patient Name: TEE MCKEON MRN: [facility]:[id number] date: 1980 Sex: M Assigned Patient Location: [facility] Current Patient Location: Accession/Order Number: [id number] Exam Date: 12/17/2023 13:15 Report Date: 12/18/2023 [...] M.D. Signed By:12/18/23 1104 DD/ 1102 TD/TT: [employer] Crew Member: Generic External Data Provider IMG XR PROCEDURES Final Result documented in this encounter Visit Diagnoses Not on filedocumented in this encounter Care Teams Pipe Line Walker Relationship Specialty Start Date End Date Orville Asher MD PCP - General Family Medicine 01/28/23 documented as of this encounter
--- OUTSIDE RECORDS SUMMARY | 2024-10-30 12:22 | XMS_ITS | Clinical Summary ---
Author Organization [facility] Address [id number] [address] [place] [address] Care Team Providers Care Hose Turner Name Role Phone Marcie Beckham MD Primary Care Provider [phone] Allergies No known active allergies Medications lisinopril-hydro [...] Insurance [employer] Care Teams Hose Turner Relationship Specialty Start Date End Date Marcie Beckham MD PCP - General Family Medicine 12/18/16
--- OUTSIDE RECORDS SUMMARY | 2024-10-30 12:22 | XMS_ITS | Encounter Summary ---
Author Organization [facility] Address [address] [place] [address] Care Team Providers Care Director Oncology Name Role Phone Orville Asher MD Primary Care Provider [phone] Encounter Details Date Type Department Care Team (Late st Contact Info) Description 12/18/2023 Orders Only [facility] [address] [place] [address] Dimitry Ramírez MD [address] [place] [address], [address] [place] [address] Social History Tobacco Use Types Packs/Day Years [...] often do you attend chur ch or lutheran services? 1 to 4 times per year 03/26/2023 Do you belong to any clubs o r organizations such as samaritan groups, unions, fraternal or athletic groups, or [...] and heating? Not hard at all 03/26/2023 [facility] ional Health - [...] place to sleep or slept in a longterm (including now)? No 03/26/2023 Sex and Gender [...] on filedocumented in this encounter Care Teams Director Oncology Relationship Specialty Start Date End Date Orville Asher MD PCP - General Family Medicine 01/28/23 documented as of this encounter
--- OUTSIDE RECORDS SUMMARY | 2024-10-30 12:22 | XMS_ITS | Encounter Summary ---
Author Organization [facility] Address [address] [place] [address] Care Team Providers Care Juice Mixer Name Role Phone Orville Asher MD Primary Care Provider [phone] Encounter Details Date Type Department Care Team [...] week 03/26/2023 How often do you attend [facility] or adventism services? 1 to 4 times per year 03/26/2023 Do you belong to any clubs o r organizations such as taoist groups, unions, fraternal or athletic groups, or [...] and heating? Not hard at all 03/26/2023 [facility] Occup[facility] ional Health - Occupational [...] place to sleep or slept in a halfway (including now)? No 03/26/2023 Sex and Gender [...] EDT Narrative 07/30/2023 10:13 [place] [address] XRay Report Signed Patient: TEE MCKEON MR#: [id number] : 1980 Acct:[id number] Age/Sex: 42 / M ADM Date: 07/28/23 Loc: RAD Attending Dr: Dimitry Fisher M.D. Ordering Physician: Dimitry Fisher M.D. Date of Service: 07/28/23 Procedure(s): XR lumbar spine 6V w bending Accession Number(s): [id number] cc: Dimitry Fisher M.D.; Orville Asher M.D. The [address] [address] Patient Name: TEE MCKEON MRN: [id number] date: 1980 Sex: M Assigned Patient Location: RAD Current Patient Location: RAD Accession/Order Number: [id number] Exam Date: 07/28/2023 09:30 Report Date: 07/30/2023 [...] Signed By: 07/30/23 1013 DD/ 1011 TD/TT: [employer] Engineer: Procedure Note Radiology, Radiologist, MD - 08/02/2023 [place] [address] XRay Report Signed Patient: TEE MCKEON SMR#: [id number] : 1980Acct:[id number] Age/Sex: 42 / MADM Date: 07/28/23 Loc: RAD Attending Dr: Dimitry Fisher M.D. Ordering Physician: Dimitry Fisher M.D. Date of Service: 07/28/23 Procedure(s): XR lumbar spine 6V w bending Accession Number(s): [id number] cc: Dimitry Fisher M.D.; Orville Asher M.D. The [place] [id number] Patient Name: TEE MCKEON MRN: [id number] date: 1980 Sex: M Assigned Patient Location: [facility] Current Patient Location: RAD Accession/Order Number: [id number] Exam Date: 07/28/2023 09:30 Report Date: 07/30/2023 [...] M.D. Signed By:07/30/23 1013 DD/ 1011 TD/TT: [employer] Engineer: Generic External Data Provider [facility] Final Result documented in this encounter Visit Diagnoses Not on filedocumented in this encounter Care Teams Juice Mixer Relationship Specialty Start Date End Date Orville Asher MD PCP - General Family Medicine 01/28/23 documented as of this encounter
--- OUTSIDE RECORDS SUMMARY | 2024-10-30 12:23 | XMS_ITS | Encounter Summary ---
Author Organization [facility] Address [address] [place] [address] Care Team Providers Care Messenger Office Name Role Phone Orville Asher MD Primary Care Provider [phone] Encounter Details Date Type Department Care Team (Late st Contact Info) Description 07/30/2023 Orders Only [facility] [address] [place] [address] Dimitry Ramírez MD [address] [place] [address], [address], [place] [address] Social History Tobacco Use Types Packs/Day Years [...] often do you attend chur ch or sikh services? 1 to 4 times per year [...] and heating? Not hard at all 03/26/2023 [facility] - Occupational [...] place to sleep or slept in a [place] [facility] [place] (including now)? No 03/26/2023 Sex and Gender [...] on filedocumented in this encounter Care Teams Messenger Office Relationship Specialty Start Date End Date Orville Asher MD PCP - General Family Medicine 01/28/23 documented as of this encounter
--- OUTSIDE RECORDS SUMMARY | 2024-10-30 12:23 | XMS_ITS | Clinical Summary ---
Author Organization [facility] Address [address] [place] [address] Care Team Providers Care Maintenance Worker Swimming Pool Name Role Phone Orville Asher MD Primary Care Provider [phone] Allergies No known active allergies Medications lisinopril-hydro [...] often do you attend chur ch or restoration services? 1 to 4 times per year 03/26/2023 Do you belong to any clubs o r organizations such as anabaptism groups, unions, fraternal or athletic groups, or [...] and heating? Not hard at all 03/26/2023 [facility] - Occupational Stress [...] (Season Ended) 2024 Insurance [employer] Care Teams Maintenance Worker Swimming Pool Relationship Specialty Start Date End Date Orville Asher MD PCP - General Family Medicine 01/28/23
--- OUTSIDE RECORDS SUMMARY | 2024-10-30 12:23 | XMS_ITS | Encounter Summary ---
Author Organization [facility] Address [address] [place] [address] Care Team Providers Care Home Service Demonstrator Name Role Phone Orville Asher MD Primary Care Provider [phone] Encounter Details Date Type Department Care Team [...] week 03/26/2023 How often do you attend [facility] or lutheran services? 1 to 4 times per year 03/26/2023 Do you belong to any clubs o r organizations such as voodoo groups, unions, fraternal or athletic groups, or [...] and heating? Not hard at all 03/26/2023 [facility] - Occupational [...] place to sleep or slept in a custodial (including now)? No 03/26/2023 Sex and Gender [...] EDT Narrative 07/30/2023 9:27 [place] [address] XRay Report Signed Patient: TEE MCKEON MR#: [id number] : 1980 Acct:[id number] Age/Sex: 42 / M ADM Date: 07/28/23 Loc: RAD Attending Dr: Dimitry Fisher M.D. Ordering Physician: Dimitry Fisher M.D. Date of Service: 07/28/23 Procedure(s): XR hip LT min 2V Accession Number(s): [id number] cc: Dimitry Fisher M.D.; Orville Asher M.D. The [address] [address] Patient Name: TEE MCKEON MRN: [id number] date: 1980 Sex: M Assigned Patient Location: RAD Current Patient Location: Accession/Order Number: [id number] Exam Date: 07/28/2023 09:30 Report Date: 07/30/2023 [...] M.D. Signed By: 07/30/23926 DD/ 3 TD/TT: Resident Program Specialist: Procedure Note Radiology, Radiologist, MD - 08/02/2023 [place] [address] XRay Report Signed Patient: TEE MCKEON SMR#: [id number] : 1980Acct:[id number] Age/Sex: 42 / MADM Date: 07/28/23 Loc: RAD Attending Dr: Dimitry Fisher M.D. Ordering Physician: Dimitry Fisher M.D. Date of Service: 07/28/23 Procedure(s): XR hip LT min 2V Accession Number(s): [id number] cc: Dimitry Fisher M.D.; Orville Asher M.D. The [place] [address] Patient Name: TEE MCKEON MRN: [id number] date: 1980 Sex: M Assigned Patient Location: RAD Current Patient Location: Accession/Order Number: [id number] Exam Date: 07/28/2023 09:30 Report Date: 07/30/2023 [...] Ku M.D. Signed By:07/30/23926 DD/ 3 TD/TT: Resident Program Specialist: us Generic External Data Provider [facility] Final Result documented in this encounter Visit Diagnoses Not on filedocumented in this encounter Care Teams Home Service Demonstrator Relationship Specialty Start Date End Date Orville Asher MD PCP - General Family Medicine 01/28/23 documented as of this encounter
--- OUTSIDE RECORDS SUMMARY | 2024-10-30 12:23 | XMS_ITS | Encounter Summary ---
Author Organization [facility] Address [address] [place] [address] Care Team Providers Care Men'S Furnishings Salesperson Name Role Phone Orville Asher MD Primary Care Provider [phone] Encounter Details Date Type Department Care Team (Late st Contact Info) Description 05/28/2024 Abstract [facility] [address] [place] [address] Orville Asher MD [address] [place] [id number] Social History Tobacco Use Types Packs/Day Years [...] often do you attend chur ch or confucianism services? 1 to 4 times per year 03/26/2023 Do you belong to any clubs o r organizations such as christianity groups, unions, fraternal or athletic groups, or [...] place to sleep or slept in a fdc (including now)? No 03/26/2023 Sex and Gender Information Value Date Recorded Sex Assigned at Not on file Legal Sex Male 8:03 PM EDT Gender Identity Not on file Sexual Orientation Not on file documented as of this encounter Plan of Treatment Not on file documented as of this encounter Visit Diagnoses Not on filedocumented in this encounter Care Teams Men'S Furnishings Salesperson Relationship Specialty Start Date End Date Orville Asher MD PCP - General Family Medicine 01/28/23 documented as of this encounter
--- OUTSIDE RECORDS SUMMARY | 2024-10-30 12:23 | XMS_ITS | Encounter Summary ---
Author Organization [facility] Address [address] [place] [address] Care Team Providers Care Mva Reactor Operator Head Name Role Phone Orville Asher MD Primary Care Provider [phone] Encounter Details Date Type Department Care Team [...] week 03/26/2023 How often do you attend [facility] or quaker services? 1 to 4 times per year 03/26/2023 Do you belong to any clubs o r organizations such as mormonism groups, unions, fraternal or athletic groups, or [...] PM EDT Narrative 10/25/2023 3:51 PM EDT [address] [address] XRay Report Signed Patient: TEE MCKEON MR#: [id number] : 1980 Acct:[id number] Age/Sex: 42 / M ADM Date: 10/25/23 Loc: EC Attending Dr: Uziel Quintanilla Ordering Physician: Uziel Quintanilla Date of Service: 10/25/23 Procedure(s): XR foot MANJINDER min 3V Accession Number(s): [id number] cc: Uziel Quintanilla; Orville Asher M.D. The [address] [address] Patient Name: TEE MCKEON MRN: [id number] date: 1980 Sex: M Assigned Patient Location: EC Current Patient Location: EC Accession/Order Number: [id number] Exam Date: 10/25/2023 14:52 Report Date: 10/25/2023 [...] Signed By: 10/25/23 1551 DD/ 1549 TD/TT: Brazer Resistance: Procedure Note Radiology, Radiologist, MD - 10/25/2023 The [place] [id number] XRay Report Signed Patient: TEE MCKEON SMR#: [id number] : 1980Acct:[id number] Age/Sex: 42 / MADM Date: 10/25/23 Loc: EC Attending Dr: Uziel Quintanilla Ordering Physician: Uziel Quintanilla Date of Service: 10/25/23 Procedure(s): XR foot MANJINDER min 3V Accession Number(s): [id number] cc: Uziel Quintanilla; Orville Asher M.D. The [address] [address] Patient Name: TEE MCKEON MRN: [id number] date: 1980 Sex: M Assigned Patient Location: Current Patient Location: Accession/Order Number: [id number] Exam Date: 10/25/2023 14:52 Report Date: 10/25/2023 15:49 At the request of: UZIEL QUINTANILLA Procedure: XR foot MANJINDER min 3V EXAMINATION: XR foot MANJINEDR min 3V HISTORY: BILATERAL FOOT PAIN COMPARISON: [...] M.D. Signed By:10/25/23 1551 DD/ 1549 TD/TT: Brazer Resistance: us Generic External Data Provider [facility] Final Result documented in this encounter Visit Diagnoses Not on filedocumented in this encounter Care Teams Mva Reactor Operator Head Relationship Specialty Start Date End Date Orville Asher MD PCP - General Family Medicine 01/28/23 documented as of this encounter
--- OUTSIDE RECORDS SUMMARY | 2024-10-30 12:23 | XMS_ITS | Encounter Summary ---
Author Organization [facility] Address [address] [place] [address] Care Team Providers Care Shot Lighter Name Role Phone Orville Asher MD Primary Care Provider [phone] Encounter Details Date Type Department Care Team (Late st Contact Info) Description 10/25/2023 Orders Only [facility] [address] [place] [address] Sana Miranda PA [address] [place] [address] [place] [address] Social History Tobacco Use Types [...] often do you attend chur ch or restorationism services? 1 to 4 times per year 03/26/2023 Do you belong to any clubs o r organizations such as islam groups, unions, fraternal or athletic groups, or [...] and heating? Not hard at all 03/26/[address] [facility] - Occupational Stress [...] place to sleep or slept in a long term (including now)? No 03/26/2023 Sex and Gender [...] on filedocumented in this encounter Care Teams Shot Lighter Relationship Specialty Start Date End Date Orville Asher MD PCP - General Family Medicine 01/28/23 documented as of this encounter
--- OUTSIDE RECORDS SUMMARY | 2024-10-30 12:23 | XMS_ITS | Encounter Summary ---
Author Organization [facility] Address [address] [place] [address] Care Team Providers Care Psychology Teacher Name Role Phone Orville Asher MD Primary Care Provider [phone] Encounter Details Date Type Department Care Team [...] attend [facility] or samaritan services? 1 to 4 times per year 03/26/2023 Do you belong to any clubs o r organizations such as yazidism groups, unions, fraternal or athletic groups, or [...] EST Narrative 05/20/2024 12:53 [place] [address] XRay Report Signed Patient: TEE MCKEON MR#: [id number] : 1980 Acct:[id number] Age/Sex: 43 / M ADM Date: 05/20/24 Loc: RAD Attending Dr: Sebastián Baldwin D.P.M. Ordering Physician: Sebastián Baldwin D.P.M. Date of Service: 05/20/24 Procedure(s): XR ankle RT min 3V Accession Number(s): [id number] cc: Sebastián Baldwin D.P.M.; Orville Asher M.D. The [place] [address] Patient Name: TEE MCKEON MRN: [id number] date: 1980 Sex: M Assigned Patient Location: RAD Current Patient Location: RAD Accession/Order Number: [id number] Exam Date: 05/20/2024 07:45 Report Date: 05/20/2024 [...] Signed By: 05/20/24 1253 DD/ 1250 TD/TT: Maintenance Department Technician: Procedure Note Radiology, Radiologist, MD - 05/20/2024 [place] [address] XRay Report Signed Patient: TEE MCKEON SMR#: [id number] : 1980Acct:[id number] Age/Sex: 43 / MADM Date: 05/20/24 Loc: RAD Attending Dr: Sebastián Baldwin D.P.M. Ordering Physician: Sebastián Badlwin D.P.M. Date of Service: 05/20/24 Procedure(s): XR ankle RT min 3V Accession Number(s): [id number] cc: Sebastián Baldwin D.P.M.; Orville Asher M.D. The [place] [id number] Patient Name: TEE MCKEON MRN: [id number] date: 1980 Sex: M Assigned Patient [facility]: [facility] Current Patient Location: RAD Accession/Order Number: [id number] Exam Date: 05/20/2024 07:45 Report Date: 05/20/2024 [...] M.D. Signed By:05/20/24 1253 DD/ 1250 TD/TT: Maintenance Department Technician: us Generic External Data Provider [facility] Final Result documented in this encounter Visit Diagnoses Not on filedocumented in this encounter Care Teams Psychology Teacher Relationship Specialty Start Date End Date Orville Asher MD PCP - General Family Medicine 01/28/23 documented as of this encounter
--- OUTSIDE RECORDS SUMMARY | 2024-10-30 12:29 | XMS_ITS | CCD ---
Author Organization [facility] Care Team Providers Care Docket Specialist Name Role Phone DR CHANTELL MALAVE Primary [...] take 1 tablet by mouth once daily Lisinopril-Castor chlorothiazide Active 1 TAB PO Daily February [...] 10-20-2020 BASO # 0.0 103/ul Normal 0.0-0.1 [facility] Comment on above: Performed By: #### C BC #### [facility] [address] [address] Sara Angie Basophils/100 WBC (Bld) 0.4 % Normal 0.2-2.0 [facility] Comment on above: Performed By: #### C BC #### [facility] [address] [place] [address] Sara Angie EO # 0.2 103/ul Normal 0.0-0.7 [facility] Comment on above: Performed By: #### C BC #### [facility] [address] [place] [address] Sara Angie Eosinophils/100 WBC (Bld) 3.1 % Normal 0.9-7.0 [facility] Comment on above: Performed By: #### C BC #### [facility] [address] [place] [address] Sara Angie Erythrocyte distribution width (RBC) [Ratio] 12.8 % Normal 11.0-15.0 [facility] Comment on above: Performed By: #### C BC #### [facility] [address] [place] [address] Sara Angie Hematocrit (Bld) [Volume fraction] 44.8 % Normal 42.0-54.0 [facility] Comment on above: Performed By: #### C BC #### [facility] [address] [place], [place] [id number] Sara Angie Hemoglobin (Bld) [Mass/Vol] 14.8 g/dL Normal 14.0-18.0 [facility] Comment on above: Performed By: #### C BC #### [facility] [address] [place] [address] Saramalachi Adams IG # 0.02 10e3/ul Normal 0.00-0.03 [facility] Comment on above: Performed By: #### C BC #### [facility] [address] [address] Saramalachi Adams IG % 0.3 % Normal 0.0-0.5 [facility] Comment on above: Performed By: #### C BC #### [facility] [address] [address] Saramalachi Adams LYMPH # 2.5 103/ul Normal 1.2-3.8 [facility] Comment on above: Performed By: #### C BC #### [facility] [address] [address] Sara Adams Lymphocytes/100 WBC (Bld) 33.4 % Normal 20.5-60.0 [facility] Comment on above: Performed By: #### C BC #### [facility] [address] [place] [address] Sara Adams MANUAL DIFF REQ NO Normal [facility] Comment on above: Performed By: #### C BC #### [facility] [address] [place] [address] Sara Adams MCH (RBC) [Entitic mass] 29.2 pg Normal 25.9-34.0 [facility] Comment on above: Performed By: #### C BC #### [facility] [address] [place] [address] Sara Adams MCHC (RBC) [Mass/Vol] 33.0 g/dL Normal 29.9-35.2 [facility] Comment on above: Performed By: #### C BC #### [facility] [address] [address] Saramalachi Adams MCV (RBC) [Entitic vol] 88.4 fL Normal 80.0-94.0 [facility] Comment on above: Performed By: #### C BC #### [facility] [address] [address] Sara Angie MONO # 0.5 103/ul Normal 0.3-0.8 [facility] Comment on above: Performed By: #### C BC #### [facility] [address] [place], [place] [address] Sara Duranen Monocytes/100 WBC (Bld) 7.0 % Normal 1.7-12.0 [facility] Comment on above: Performed By: #### C BC #### [facility] [address] [id number] Sara Adams NEUT # 4.2 103/ul Normal 1.4-6.5 [facility] Comment on above: Performed By: #### C BC #### [facility] [address] [place], [place] [id number] Sara Adams Neutrophils/100 WBC (Bld) 55.8 % Normal 43.0-75.0 [facility] Comment on above: Performed By: #### C BC #### [facility] [address] [place], [place] [phone] Sara Adams Platelet mean volume (Bld) [Entitic vol] 10.7 fL Normal 9.5-13.5 [facility] Comment on above: Performed By: #### C BC #### [facility] [address] [place], [place] [id number] Saramalachi Duranen PLT 239 103/ul Normal 150-450 [facility] Comment on above: Performed By: #### C BC #### [facility] [address] [place], [place] [id number] Sara Angie RBC 5.07 106/ul Normal 4.70-6.10 [facility] Comment on above: Performed By: #### C BC #### [facility] [address] [place], [place] [id number] Sara Angie WBC 7.5 103/ul Normal 4.0-11.0 [facility] Comment on above: Performed By: #### C BC #### [facility] [address] [place], [place] [id number] Sara Adams GLYCOHEMOGLOBIN A1Con 2020 ADA RECOMMENDATION ADA THERAPEUTIC TARGET 6.0 - 7.0 ACTION SUGGESTED > 7.0 Normal [facility] Comment on above: Performed By: #### A 1C #### [facility] [address] [place], [place] [address] Sara Angie Glucose [Mass/Vol] 120 mg/dL Normal [facility] Comment on above: Performed By: #### A 1C #### [facility] [address] [place], [place] [address] Sara Angie HbA1c (Bld) [Mass fraction] 5.8 % Normal <=6.0 [facility] Comment on above: Performed By: #### A 1C #### [facility] [address] [place], [place] [address] Sara Angie LIPID PROFILEon 10-20-2020 CHOL-HDL RATIO NORM SEE BELOW Normal [facility] Comment on above: Result Comment: 3.3 - 4.4 LOW RISK 4.4 - 7.1 AVERAGE RISK 7.1 - 11.0 MODERATE RISK >11.0 HIGH RISK Performed By: #### C MP, LIPID, PSASC #### [facility] [address] [id number] Sara Angie Cholesterol [Mass/Vol] 166 mg/dL Normal <=200 [facility] Comment on above: Performed By: #### C MP, LIPID, PSASC #### [facility] [address] [id number] Sara Angie Cholesterol in HDL [Mass/Vol] 46 mg/dL Normal [facility] Comment on above: Performed By: #### C MP, LIPID, PSASC #### [facility] [address] [id number] Sara Angie Cholesterol in LDL [Mass/Vol] 104.6 mg/dL Normal [facility] Comment on above: Performed By: #### C MP, LIPID, PSASC #### [facility] [address] [id number] Sara Angie Cholesterol.total/Cho lesterol in HDL [Mass ratio] 3.6 {ratio} Normal [facility] Comment on above: Performed By: #### C MP, LIPID, PSASC #### [facility] [address] [id number] Sara Angie HDL NORMAL > or = 60 mg/dl - LOW CARDIOVASCULAR RISK <40 mg/dl - HIGH CARDIOVASCULAR RISK Normal [facility] Comment on above: Performed By: #### C MP, LIPID, PSASC #### [facility] [address] [place], [place] [address] Sara Angie LDL CALC NORMAL SEE BELOW Normal [facility] Comment on above: Result Comment: <100 mg/dl OPTIMAL 100 - 129 mg/dl NEAR OR ABOVE OPTIMAL 130 - 159 mg/dl BORDERLINE HIGH 160 - 189 mg/dl HIGH >190 mg/dl VERY HIGH Performed By: #### C MP, LIPID, PSASC #### [facility] [address] [place], [place] [address] Sara Angie Triglyceride [Mass/Vol] 77 mg/dL Normal <=150 [facility] Comment on above: Performed By: #### C MP, LIPID, PSASC #### [facility] [address] [place], [place] [address] Sara Angie VLDL CALC 15.4 mg/dL Normal [facility] Comment on above: Performed By: #### C MP, LIPID, PSASC #### [facility] [address] [place], [place] [address] Saramalachi Duranen PROF 14(COMP METB)on 021 Albumin [Mass/Vol] 3.4 g/dL Critically low 3.5-5.0 [facility] Comment on above: Performed By: #### C MP, LIPID, PSASC #### [facility] [address] [id number] Sara Angie Albumin/Globulin [Mass ratio] 0.8 {ratio} Normal [facility] Comment on above: Performed By: #### C MP, LIPID, PSASC #### [facility] [address] [place], [place] [address] Sara Angie ALP [Catalytic activity/Vol] 80 U/L Normal 38-126 [facility] Comment on above: Performed By: #### C MP, LIPID, PSASC #### [facility] [address] [place], [place] [address] Sara Angie ALT [Catalytic activity/Vol] 55 U/L Normal 21-72 [facility] Comment on above: Performed By: #### C MP, LIPID, PSASC #### [facility] [address] [address] Sara Angie Anion gap [Moles/Vol] 11.4 mmol/L Normal [facility] Comment on above: Performed By: #### C MP, LIPID, PSASC #### [facility] [address] [address] Sara Angie AST [Catalytic activity/Vol] 26 U/L Normal 17-59 [facility] Comment on above: Performed By: #### C MP, LIPID, PSASC #### [facility] [address] [place] [address] Sara Angie Bilirubin [Mass/Vol] 0.5 mg/dL Normal 0.2-1.3 [facility] Comment on above: Performed By: #### C MP, LIPID, PSASC #### [facility] [address] [place] [address] Sara Angie Calcium [Mass/Vol] 9.1 mg/dL Normal 8.4-10.2 [facility] Comment on above: Performed By: #### C MP, LIPID, PSASC #### [facility] [address] [place] [address] Sara Angie Chloride [Moles/Vol] 106 mmol/L Normal 98-107 [facility] Comment on above: Performed By: #### C MP, LIPID, PSASC #### [facility] [address] [place] [address] Sara Angie CO2 [Moles/Vol] 30.9 mmol/L Critically high 22.0-30.0 [facility] Comment on above: Performed By: #### C MP, LIPID, PSASC #### [facility] [address] [place] [address] Sara Angie Creatinine [Mass/Vol] 0.95 mg/dL Normal 0.66-1.25 [facility] Comment on above: Performed By: #### C MP, LIPID, PSASC #### [facility] [address] [place], [place] [address] Sara Angie EGFR-AF [place]ONG [place]ER >60 Normal >=60 [facility] Comment on above: Performed By: #### C MP, LIPID, PSASC #### [facility] [address] [place] [address] Sara Angie EGFR-NON AF [place]ER >60 Normal >=60 [facility] Comment on above: Performed By: #### C MP, LIPID, PSASC #### [facility] [address] [place] [address] Sara Angie Globulin (S) [Mass/Vol] 4.1 g/dL Normal [facility] Comment on above: Performed By: #### C MP, LIPID, PSASC #### [facility] [address] [place] [address] Sara Angie Glucose [Mass/Vol] 106 mg/dL Normal 74-106 [facility] Comment on above: Performed By: #### C MP, LIPID, PSASC #### [facility] [address] [place] [address] Sara Angie Potassium [Moles/Vol] 4.3 mmol/L Normal 3.4-5.0 [facility] Comment on above: Performed By: #### C MP, LIPID, PSASC #### [facility] [address] [place] [address] Sara Angie Protein [Mass/Vol] 7.5 g/dL Normal 6.1-8.2 [facility] Comment on above: Performed By: #### C MP, LIPID, PSASC #### [facility] [address] [place] [address] Sara Angie Sodium [Moles/Vol] 144 mmol/L Normal 137-145 [facility] Comment on above: Performed By: #### C MP, LIPID, PSASC #### [facility] [address] [place] [address] Sara Angie Urea nitrogen [Mass/Vol] 11.0 mg/dL Normal 9.0-20.0 [facility] Comment on above: Performed By: #### C MP, LIPID, PSASC #### [facility] [address] [place], [place] [id number] Sara Adams Urea nitrogen/Creatinine [Mass ratio] 11.6 mg/mg Normal [facility] Comment on above: Performed By: #### C MP, LIPID, PSASC #### [facility] [address] [place], [place] [address] Sara Adams Encounters Encounter Date Encounter Type Care Provider Facility Start: 02-28-2024 End: 02-28-2024 ambulatory [facility] Work Phone: Start: 02-28-2024 End: 02-28-2024 Patient encounter procedure [facility] Work Phone: Start: 02-26-2024 End: 02-26-2024 ambulatory [facility] Work Phone: Start: 02-26-2024 End: 02-26-2024 Patient encounter procedure [facility] Work Phone: Start: 03-27-2023 End: 03-27-2023 ambulatory KEL[facility] SILVA Not Available Start: 10-25-2020 Encounter for genera l adult medical examination without abnormal findings DR CHANTELL MALAVE [facility] Start: 10-20-2020 End: 10-21-[address] [...] By: #### C MP, LIPID, PSASC #### [facility] [address] [id number] Sara Adams Payers Date Payer Category Payer Unknown [id number] [id number] [id number] 1980 Unknown [id number] 1959 Self-pay 1959 Unknown [id number] Unknown [id number] [id number] [id number] Unknown [id number] [id number] [id number] Unknown [facility] [id number] Social History Date Type Detail Facility Tobacco smoking stat [facility] Unknown if ever smoked [facility] Work Phone: Start: 1980 Sex Assigned At Male [facility] Start: 02-28-2024 Tobacco smoking stat [facility] Never smoked tobacco (finding) [facility] Evaluation note Note Date & Type Note Facility Evaluation note No assessment information availa ble [facility] Work Phone: Summary Purpose Family History [...] DATE CREATED AUTHOR AUTHOR'S ORGANIZ ATION 03/29/2023 [facility] [employer] Care Teams (unrecognized sec [...] BE BASED ON THE PRIMARY CLINICAL RECORDS. [employer] [facility]. provides no warranty or guarantee of the accuracy or completeness of information in this document.
--- NOTE | 2024-10-30 12:41 | PM.CN ---
Consult Note: HPI Data of Consult Patient: known to practice within the last 3 years Requesting Physician: Nika Falcon NP Primary Care Provider: Orville Asher MD Consult Narrative Reason for consult: right LE pain Narrative: Tee Mckeon a pleasant 43 year old male with chronic low back pain and lumbar radiculopathy > 12 months presents for evaluation of acute on chronic RLE pain. Pt has not recently been utilizing zonegran, has not found benefit to motrin or baclofen at this time. Pt was evaluated in the ER today for acute right knee pain increasing since last night without injury, ER recommending prednisone, tylenol #3, and orthopedic consult within 1 week. Pain today 4/10 stabbing increasing to 9/10 with standing, kneeling, weight bearing, walking. cc:: CC: Nika Falcon NP [facility] Medical History (Updated 10/30/24 @ 12:48 by Nika Falcon NP) Heel spur ?M77.30 - Calcaneal spur, unspecified foot (ICD-10) Kidney stone ?N20.0 - Calculus of kidney (ICD-10) HTN (hypertension) ?I10 - Essential (primary) hypertension (ICD-10) Surgical History (Updated 12/25/23 @ 08:30 by Gabriela Mckeon RN) History of lithotripsy ?Z98.890 - Other specified postprocedural states (ICD-10) Social History Little interest or pleasure in doing things: not at all Feeling down, depressed, or hopeless: not at all Meds Home Medications and Allergies Home Medications ?Medication ?Instructions ?Recorded ?Confirmed ?Type baclofen 10 mg tablet 10 mg PO DAILY PRN muscle spasm 12/25/23 10/30/24 History lisinopril 20 1 tab PO DAILY 12/25/23 10/30/24 History mg-hydrochlorothiazide 25 mg tablet acetaminophen 300 mg-codeine 30 mg 1 tab PO Q6H PRN pain 5 days #20 10/30/24 Rx tablet tabs prednisone 10 mg tablet See Rx Instructions .Route 10/30/24 Rx .COMPLEX #30 tabs Allergies Allergy/AdvReac Type Severity Reaction Status Date / Time No Known Drug Allergies Allergy Verified 02/28/24 18:04 Exam Constitutional Documenting provider has reviewed patient's vital signs: yes Common normals: no apparent distress, oriented x3, healthy appearing, alert and well nourished General appearance: cooperative HENMT Common normals: normocephalic, hearing grossly normal bilaterally and moist oral mucous membranes Head and scalp: normocephalic Eye Common normals: PERRL Pupil: PERRL Neck & C-Spine Common normals: full ROM General: normal visual inspection Chest Common normals: inspection of chest normal Respiratory Common normals: normal respiratory effort, no retractions and no use of accessory muscles Back & Pelvis Lumbar spine/lower back: pain with ROM and straight leg raise negative bilaterally Other: increased pain following right L4,5 with standing walking strength 3/5 in RLE and 5/5 in LLE Extremity Right lower extremity: knee joint Other: moderate edema to medial aspect of right knee, no instability noted. increased pain with medial and lateral stress testing. minimal crepitus noted Neuro Common normals: oriented x3 Sensorium/orientation: alert Psych Common normals: mental status grossly normal, thought process normal, cooperative, affect normal, speech normal and activity/motor behavior normal Speech: normal speech Thought process: normal thought process Results Additional Findings Additional findings: If on a controlled substance or opioids, I have checked an [place] report on this patient and there are no aberrancies noted in the prescribing history.??If on a controlled substance or opioid a drug screen was completed and reviewed within the last year, and if there has not been a drug screen completed we ordered one today to monitor higher risk, state monitored pain medication use. As part of providing excellent, safe, comprehensive care, the following was completed at our patient's visit: 1. A medication reconciliation and review to ensure accurate knowledge of current/active medications, including asking our patients to inform us about any [id number] medications or herbal remedies/nutritional supplements/alternative remedies. 2. A review to specifically ensure our patients have had annual screening for screening for depression, screening for tobacco use, and screening for unhealthy alcohol use. For concerning screenings had a discussion with the patient, provided patient education, and recommended follow-up with primary care provider when appropriate. If patient noted with a risk of falling, they received education on strength, gait, and balance training to prevent future risk of falling. Portions of this note may have been carried over from the previous visit and updated as appropriate. Please note this office utilizes paper charting in addition to the electronic medical record. A list of current medications, vitals, and PMH is available there as the clinical staff outside of myself do not have access to [facility] charting during the clinic day operations. As part of providing quality comprehensive care the current medications, vitals, and PMH were reviewed in the paper chart. Assessment and Plan Assessment and Plan (1) Lumbar radiculopathy: (2) Degenerative disc disease (DDD) of lumbar region with leg pain without axial back pain: (3) Lumbar stenosis with neurogenic claudication: (4) Acute pain of right knee: Assessment and Plan: f/u with orthopedics as planned, likely does have acute injury with edema and warmth noted on exam however pt denies injury or pop start prednisone as ordered by ER can utilize tylenol #3 PRN as ordered by ER Plan 43 year old male with chronic low back pain unresponsive to > 6 weeks of PT/HEP, heat, ice, tylenol, nsaids. has not been utilizing zonegran recently, encouraged to restart zonegran 50mg HS. update lumbar MRI without contrast to assess lumbar stenosis with NC, lumbar DDD with leg pain in consideration of interventional therapy vs ns consultation. f/u to review lumbar MRI
== END 2024-10-30 12:21 | disposition home or self-care (01) ==
LOC: PM 12:21
PROVIDERS: PCP Family Medicine; Visit Provider Nurse Practitioner
DX: M48.062 Spinal stenosis, lumbar region with neurogenic claudication (principal); M51.16 Intervertebral disc disorders with radiculopathy, lumbar region; M25.561 Pain in right knee
CPT/HCPCS: G0463

== ENCOUNTER 2024-11-07 06:39 | Outpatient (OUT) | payer BC, SELFPAY ==
--- OUTSIDE RECORDS SUMMARY | 2024-11-07 06:42 | XMS_ITS | CCD ---
Author Organization [facility] InformFormerly [facility] Care Team Providers Care Gear And Spline Grinder Name Role Phone DR CHANTELL MALAVE Primary [...] take 1 tablet by mouth once daily Lisinopril-[place] chlorothiazide Active 1 TAB PO Daily February [...] 10-20-2020 BASO # 0.0 103/ul Normal 0.0-0.1 [facility] Comment on above: Performed By: #### C BC #### [facility] [address] [address] Sara Angie Basophils/100 WBC (Bld) 0.4 % Normal 0.2-2.0 [facility] Comment on above: Performed By: #### C BC #### [facility] [address] [place] [address] Sara Angie EO # 0.2 103/ul Normal 0.0-0.7 [facility] Comment on above: Performed By: #### C BC #### [facility] [address] [place] [address] Sara Angie Eosinophils/100 WBC (Bld) 3.1 % Normal 0.9-7.0 [facility] Comment on above: Performed By: #### C BC #### [facility] [address] [place] [address] Sara Angie Erythrocyte distribution width (RBC) [Ratio] 12.8 % Normal 11.0-15.0 [facility] Comment on above: Performed By: #### C BC #### [facility] [address] [place] [address] Sara Angie Hematocrit (Bld) [Volume fraction] 44.8 % Normal 42.0-54.0 [facility] Comment on above: Performed By: #### C BC #### [facility] [address] [place], [place] [id number] Sara Angie Hemoglobin (Bld) [Mass/Vol] 14.8 g/dL Normal 14.0-18.0 [facility] Comment on above: Performed By: #### C BC #### [facility] [address] [place] [address] Saramalachi Adams IG # 0.02 10e3/ul Normal 0.00-0.03 [facility] Comment on above: Performed By: #### C BC #### [facility] [address] [address] Saramalachi Adams IG % 0.3 % Normal 0.0-0.5 [facility] Comment on above: Performed By: #### C BC #### [facility] [address] [address] Saramalachi Adams LYMPH # 2.5 103/ul Normal 1.2-3.8 [facility] Comment on above: Performed By: #### C BC #### [facility] [address] [address] Sara Adams Lymphocytes/100 WBC (Bld) 33.4 % Normal 20.5-60.0 [facility] Comment on above: Performed By: #### C BC #### [facility] [address] [place] [address] Sara Adams MANUAL DIFF REQ NO Normal [facility] Comment on above: Performed By: #### C BC #### [facility] [address] [place] [address] Sara Adams MCH (RBC) [Entitic mass] 29.2 pg Normal 25.9-34.0 [facility] Comment on above: Performed By: #### C BC #### [facility] [address] [place] [address] Sara Adams MCHC (RBC) [Mass/Vol] 33.0 g/dL Normal 29.9-35.2 [facility] Comment on above: Performed By: #### C BC #### [facility] [address] [address] Saramalachi Adams MCV (RBC) [Entitic vol] 88.4 fL Normal 80.0-94.0 [facility] Comment on above: Performed By: #### C BC #### [facility] [address] [address] Sara Angie MONO # 0.5 103/ul Normal 0.3-0.8 [facility] Comment on above: Performed By: #### C BC #### [facility] [address], [place] [address] Sara Duranen Monocytes/100 WBC (Bld) 7.0 % Normal 1.7-12.0 [facility] Comment on above: Performed By: #### C BC #### [facility] [address] [id number] Sara Adams NEUT # 4.2 103/ul Normal 1.4-6.5 [facility] Comment on above: Performed By: #### C BC #### [facility] [address] [place], [place] [id number] Sara Adams Neutrophils/100 WBC (Bld) 55.8 % Normal 43.0-75.0 [facility] Comment on above: Performed By: #### C BC #### [facility] [address] [place], [place] [phone] Sara Adams Platelet mean volume (Bld) [Entitic vol] 10.7 fL Normal 9.5-13.5 [facility] Comment on above: Performed By: #### C BC #### [facility] [address] [place], [place] [phone] Saramalachi Duranen PLT 239 103/ul Normal 150-450 [facility] Comment on above: Performed By: #### C BC #### [facility] [address] [place], [place] [phone] Sara Angie RBC 5.07 106/ul Normal 4.70-6.10 [facility] Comment on above: Performed By: #### C BC #### [facility] [address] [place], [place] [phone] Sara Angie WBC 7.5 103/ul Normal 4.0-11.0 [facility] Comment on above: Performed By: #### C BC #### [facility] [address] [place], [place] [phone] Sara Adams GLYCOHEMOGLOBIN A1Con 2020 ADA RECOMMENDATION ADA THERAPEUTIC TARGET 6.0 - 7.0 ACTION SUGGESTED > 7.0 Normal [facility] Comment on above: Performed By: #### A 1C #### [facility] [address], [place] [address] Sara Angie Glucose [Mass/Vol] 120 mg/dL Normal [facility] Comment on above: Performed By: #### A 1C #### [facility] [address] [place], [place] [address] Sara Angie HbA1c (Bld) [Mass fraction] 5.8 % Normal <=6.0 [facility] Comment on above: Performed By: #### A 1C #### [facility] [address], [place] [address] Sara Angie LIPID PROFILEon 10-20-2020 CHOL-HDL RATIO NORM SEE BELOW Normal [facility] Comment on above: Result Comment: 3.3 - 4.4 LOW RISK 4.4 - 7.1 AVERAGE RISK 7.1 - 11.0 MODERATE RISK >11.0 HIGH RISK Performed By: #### C MP, LIPID, PSASC #### [facility] [address] [id number] Sara Angie Cholesterol [Mass/Vol] 166 mg/dL Normal <=200 [facility] Comment on above: Performed By: #### C MP, LIPID, PSASC #### [facility] [address] [id number] Sara Angie Cholesterol in HDL [Mass/Vol] 46 mg/dL Normal [facility] Comment on above: Performed By: #### C MP, LIPID, PSASC #### [facility] [address] [id number] Sara Angie Cholesterol in LDL [Mass/Vol] 104.6 mg/dL Normal [facility] Comment on above: Performed By: #### C MP, LIPID, PSASC #### [facility] [address] [phone] Sara Angie Cholesterol.total/Cho lesterol in HDL [Mass ratio] 3.6 {ratio} Normal [facility] Comment on above: Performed By: #### C MP, LIPID, PSASC #### [facility] [address] [phone] Sara Angie HDL NORMAL > or = 60 mg/dl - LOW CARDIOVASCULAR RISK <40 mg/dl - HIGH CARDIOVASCULAR RISK Normal [facility] Comment on above: Performed By: #### C MP, LIPID, PSASC #### [facility] [address], [place] [address] Sara Angie LDL CALC NORMAL SEE BELOW Normal [facility] Comment on above: Result Comment: <100 mg/dl OPTIMAL 100 - 129 mg/dl NEAR OR ABOVE OPTIMAL 130 - 159 mg/dl BORDERLINE HIGH 160 - 189 mg/dl HIGH >190 mg/dl VERY HIGH Performed By: #### C MP, LIPID, PSASC #### [facility] [address], [place] [address] Sara Angie Triglyceride [Mass/Vol] 77 mg/dL Normal <=150 [facility] Comment on above: Performed By: #### C MP, LIPID, PSASC #### [facility] [address], [place] [address] Sara Angie VLDL CALC 15.4 mg/dL Normal [facility] Comment on above: Performed By: #### C MP, LIPID, PSASC #### [facility] [address], [place] [address] Saramalachi Duranen PROF 14(COMP METB)on 021 Albumin [Mass/Vol] 3.4 g/dL Critically low 3.5-5.0 [facility] Comment on above: Performed By: #### C MP, LIPID, PSASC #### [facility] [address] [phone] Sara Angie Albumin/Globulin [Mass ratio] 0.8 {ratio} Normal [facility] Comment on above: Performed By: #### C MP, LIPID, PSASC #### [facility] [address], [place] [address] Sara Angie ALP [Catalytic activity/Vol] 80 U/L Normal 38-126 [facility] Comment on above: Performed By: #### C MP, LIPID, PSASC #### [facility] [address], [place] [address] Sara Angie ALT [Catalytic activity/Vol] 55 U/L Normal 21-72 [facility] Comment on above: Performed By: #### C MP, LIPID, PSASC #### [facility] [address] [address] Sara Angie Anion gap [Moles/Vol] 11.4 mmol/L Normal [facility] Comment on above: Performed By: #### C MP, LIPID, PSASC #### [facility] [address] [address] Sara Angie AST [Catalytic activity/Vol] 26 U/L Normal 17-59 [facility] Comment on above: Performed By: #### C MP, LIPID, PSASC #### [facility] [address] [place] [address] Sara Angie Bilirubin [Mass/Vol] 0.5 mg/dL Normal 0.2-1.3 [facility] Comment on above: Performed By: #### C MP, LIPID, PSASC #### [facility] [address] [place] [address] Sara Angie Calcium [Mass/Vol] 9.1 mg/dL Normal 8.4-10.2 [facility] Comment on above: Performed By: #### C MP, LIPID, PSASC #### [facility] [address] [place] [address] Sara Angie Chloride [Moles/Vol] 106 mmol/L Normal 98-107 [facility] Comment on above: Performed By: #### C MP, LIPID, PSASC #### [facility] [address] [place] [address] Sara Angie CO2 [Moles/Vol] 30.9 mmol/L Critically high 22.0-30.0 [facility] Comment on above: Performed By: #### C MP, LIPID, PSASC #### [facility] [address] [place] [address] Sara Angie Creatinine [Mass/Vol] 0.95 mg/dL Normal 0.66-1.25 [facility] Comment on above: Performed By: #### C MP, LIPID, PSASC #### [facility] [address] [place], [place] [address] Sara Angie EGFR-AF MONTSERRATIAN >60 Normal >=60 [facility] Comment on above: Performed By: #### C MP, LIPID, PSASC #### [facility] [address] [place] [address] Sara Angie EGFR-NON AF MONTSERRATIAN >60 Normal >=60 [facility] Comment on above: Performed By: #### C MP, LIPID, PSASC #### [facility] [address] [place] [address] Sara Angie Globulin (S) [Mass/Vol] 4.1 g/dL Normal [facility] Comment on above: Performed By: #### C MP, LIPID, PSASC #### [facility] [address] [place] [address] Sara Angie Glucose [Mass/Vol] 106 mg/dL Normal 74-106 [facility] Comment on above: Performed By: #### C MP, LIPID, PSASC #### [facility] [address] [place] [address] Sara Angie Potassium [Moles/Vol] 4.3 mmol/L Normal 3.4-5.0 [facility] Comment on above: Performed By: #### C MP, LIPID, PSASC #### [facility] [address] [place] [address] Sara Angie Protein [Mass/Vol] 7.5 g/dL Normal 6.1-8.2 [facility] Comment on above: Performed By: #### C MP, LIPID, PSASC #### [facility] [address] [place] [address] Sara Angie Sodium [Moles/Vol] 144 mmol/L Normal 137-145 [facility] Comment on above: Performed By: #### C MP, LIPID, PSASC #### [facility] [address] [place] [address] Sara Angie Urea nitrogen [Mass/Vol] 11.0 mg/dL Normal 9.0-20.0 [facility] Comment on above: Performed By: #### C MP, LIPID, PSASC #### [facility] [address] [place], [place] [id number] Sara Adams Urea nitrogen/Creatinine [Mass ratio] 11.6 mg/mg Normal [facility] Comment on above: Performed By: #### C MP, LIPID, PSASC #### [facility] [address], [place] [address] Sara Adams Encounters Encounter Date Encounter Type Care Provider Facility Start: 02-28-2024 End: 02-28-2024 ambulatory [facility] Work Phone: Start: 02-28-2024 End: 02-28-2024 Patient encounter procedure [facility] Work Phone: Start: 02-26-2024 End: 02-26-2024 ambulatory [facility] Work Phone: Start: 02-26-2024 End: 02-26-2024 Patient encounter procedure [facility] Work Phone: Start: 03-27-2023 End: 03-27-2023 ambulatory KELSI SILVA Not Available Start: 10-25-2020 Encounter for genera l adult medical examination without abnormal findings DR CHANTELL MALAVE [facility] Start: 10-20-2020 End: 10-21-[address] [...] By: #### C MP, LIPID, PSASC #### [facility] [address] [id number] Sara Adams Payers Date Payer Category Payer Unknown [id number] [id number] [id number] 1980 Unknown [id number] 1959 Self-pay 1959 Unknown [id number] Unknown [id number] [id number] [id number] Unknown [id number] [id number] [id number] Unknown [employer] [id number] Social History Date Type Detail Facility Tobacco smoking stat [facility] Unknown if ever smoked [facility] Work Phone: Start: 1980 Sex Assigned At Male F [facility] Start: 02-28-2024 Tobacco smoking stat [facility] Never smoked tobacco (finding) [facility] Evaluation note Note Date & Type Note Facility Evaluation note No assessment information availa ble [facility] Work Phone: Summary Purpose Family [...] AUTHOR'S ORGANIZ ATION 03/29/2023 [facility] [employer] Care Teams (unrecognized sec [...] BE BASED ON THE PRIMARY CLINICAL RECORDS. [employer] [facility]. provides no warranty or guarantee of the accuracy or completeness of information in this document.
--- NOTE | 2024-11-07 06:43 | MR_ITS ---
The [address] [address] Patient Name: ROLLY LANDA MRN: [id number] date: 1980 Sex: M Assigned Patient Location: MRI Current Patient Location: MRI Accession/Order Number: [id number] Exam Date: 11/07/2024 09:16 Report Date: 11/07/2024 09:25 At the request of: PARK METZGER NP Procedure: MR lumbar spine wo con MRI LUMBAR SPINE WITHOUT CONTRAST COMPARISON: Plain films 10/30/2024 CLINICAL DATA: Back pain radiating to the right in hip for the past 2 weeks. No reported injury. Multiecho imaging in the axial and sagittal plane was performed without contrast. Alignment is maintained on the sagittal sequences. There are no acute compression fractures or marrow edema. The conus medullaris terminates at T12-L1 and is normal in caliber and signal. No paraspinal soft tissue abnormalities are noted. From T12 - L1 through L3-4, the discs are within normal limits for height and signal intensity. There is no significant disc bulge or herniation. No central or foraminal stenosis is seen. At L4-5, there is subtle loss of disc height as well as disc desiccation. There is minimal annular disc bulging, greater toward the neural foramen. There is also mild right and moderate left facet hypertrophy. There is no thecal sac effacement. There is mild right and moderate left foraminal encroachment. At the lumbosacral junction, there is slight disc space narrowing however no disc desiccation is seen. Minor disco-osteophytic bulging is present. There is minimal facet disease. The thecal sac is already tapered and there is no effacement. There is slight inferior foraminal encroachment bilaterally, greater on left. MR/MR lumbar spine wo con IMPRESSION: DISCOVERTEBRAL DEGENERATIVE CHANGE AT L4-5 WITH ASSOCIATED FORAMINAL ENCROACHMENT, GREATER ON THE LEFT. Impression dictated by: Angie Chinchilla M.D. 11/07/2024 9:25 AM Dictation Location: [place] [address] Electronically authenticated by: [id number] Y Date: 11/07/2024 09:25
== END 2024-11-07 06:40 | disposition home or self-care (01) ==
LOC: MRI 06:39
PROVIDERS: PCP Family Medicine; Visit Provider Nurse Practitioner
DX: M54.16 Radiculopathy, lumbar region (principal); M48.062 Spinal stenosis, lumbar region with neurogenic claudication
CPT/HCPCS: 72148

== ENCOUNTER 2025-03-20 07:30 | Outpatient (OUT) | payer BC, SELFPAY ==
--- OUTSIDE RECORDS SUMMARY | 2025-03-19 05:14 | XMS_ITS | Continuity of Care Document ---
Author Organization [facility] Address [address] [place] [address] Phone Care Team Providers Care Applications Chemist Name Role Phone Buck Mcfadden DO Attending Provider Orville Asher MD Primary Care Provider Ron Talavera MD Attending Provider Unavailable Jet Talavera MD Attending Provider Orville Asher MD Attending Provider [phone] Care Teams Patient Care Team Team Status: Active Member Role/Relationship Status Dates Orville Asher MD Primary Care Provider Active Visit Care Team Team Status: Inactive Member Role/Relationship Status Dates Buck Mcfadden DO Attending Provider Active S tart: February 09, 2025 End: February 09, 2025Coy Goel Care ProviderActiveStart: February 09, 2025 End: February 09, 2025 Visit Care Team Team Status: Inactive Member Role/Relationship Status Dates Orville Asher MD Primary Care Provider Active S tart: February 13, 2025 End: February 13assaJulian Valentine ProviderActiveStart: February 13, 2025 End: February 13, 2025 Visit Care Team Team Status: Inactive Member Role/Relationship Status Dates Orville Asher MD Primary Care Provider Active S tart: February 13, 2025 End: February 13aseJulian Valentine ProviderActiveStart: February 13, 2025 End: February 13, 2025 Patient Care Team Team Status: Inactive Member Role/Relationship Status Dates Orville Asher MD Primary Care Provider Active S tart: March 19, 2025 End: March 19, 2025Orville Asher MDAttending ProviderActiveStart: March 19, 2025 End: March 19, 2025 Chief Complaint and Reason for Visit Chief Complaint Admit Date TBH OP SP RT KNEE PAIN February 09 9:26am REF DR MCFADDEN PSORIASIS February 13 9:39am l40.9 l40.50 z79.899 February 13, 2025 10:36am annual wellness March 19, 2025 9:22am Reason for Visit Admit Date Arthritis of right knee February 09 9:26am BMI 45.0-49.9, adult February 09, 2025 9:26am Class 3 severe obesity with body mass index (BMI) of 45.0 to 49.9 in adult February 09, 2025 9:26am Primary osteoarthritis of left knee 2024 9:26am Primary osteoarthritis of right hip Jano 2024 9:26am High risk medication use February 13 9:39am Psoriasis February 13, 2025 9 :39am Psoriatic arthritis February 13, 2025 9 :39am Right anterior knee pain February 13 9:39am Annual physical exam March 19, 2025 9:22am HTN (hypertension) March 19, 2025 9:22am Reason for Referral Type Reason(s) Provider Provider Contact Information P [facility] Address Start Date Right anterior knee pain M25.561 - Pain in right kneeM25.561 - Pain in right kneeBellevue Hosp RehabilitationWork Phone: [phone] [facility] [id number] 2024 Allergies, Adverse Reactions, Alerts Allergen Type Severity Reaction Last Updated Verified Status No Known Allergies Allergy Unknown March 19, 2025 9:45amYesActive Social History Smoking Status Status Start Date End Date Date of Observa tion Never smoked tobacco (finding) February 28, 2024 5:25pm Observation Status Observation Response Date of Response Legal Sex [facility] (finding) [facility] Family History Relationship Condition Age at Onset Recorded Date/T radha mother Rheumatoid arthritis Unknown Problems Active Problems Problem Diagnosis/Recorded Date Onset Date Stat us High risk medication use February 13, 2025 9:27am Unk nown Active Class 3 severe obesity with body mass index (BMI) of 45.0 to 49.9 in adult November 12, 2024 9:21am Unknown Active BASILIO (obstructive sleep apnea) March 18, 2025 7:31 am Unknown Active Right anterior knee pain February 13, 2025 9:27am Unk nown Active Primary osteoarthritis of left knee February 09, 2025 9:00am Unknown Active Primary osteoarthritis of right hip November 12, 2024 9: 16am Unknown Active Epilepsy February 28, 2024 4:25pm Unknown Ac tive Family history of psoriasis February 13, 2025 9:26am Unknown Active Gout, unspecified March 18, 2025 7:31am Unknown Active Psoriatic arthritis February 13, 2025 9:26am Unknown Active Annual physical exam March 19, 2025 9:58am Unknow n Active Calcaneal spur of both feet March 18, 2025 7:31am Unknown Active Psoriasis February 13, 2025 6:31am Unknown Ac tive BMI 45.0-49.9, adult November 12, 2024 9:21am Unknown Active HTN (hypertension) February 28, 2024 4:25pm Unknown Active Arthritis of right knee November 12, 2024 8:59am Unknown Active Inactive/Resolved Problems Problem Diagnosis/Recorded Date Onset Date Stat us Acute right hip pain November 12, 2024 9:01am Unknown Resolved Medications Medication Status Dose Units Route Directions Qty Days Refills S tart Date Stop Date End Date Reason(s) Instructions Adherence Acetaminophen-Codeine 300-30 mg tablet Active 1 TAB P O Every 6 hours as needed November 11, 2024 11:00pmUnknownDoxycycline Hyclate 100 mg fsvdaszNfqvypcfbgxx868 MGPODailyOct2023 11:00pmJuly 2024 8:23amLisinopril- Hydrochlorothiazide 20-25 mg qkzrjhXrnjjs7ZNYPOLhksdSivxbuc 2023 11:00pm Complies with drug therapyBaclofen 10 mg cflvtkVsslliohqayx52ADKHBlrwl as needed February 27, 2024 11:00pmNov2024 9:45amZonisamide 50 mg capsule DiscontinuedMGPOFebruary 27, 2024 11:00pmFebruary 13, 2025 8:42am Relevant Diagnostic Tests and/or Laboratory Data Laboratory Results Test Collection Date/Time Result Date/Time Result Interpretation Reference Range Result Comment Performing Site Erythrocyte Sedimentation Rate February 13, 2025 10:06am February 13, 2025 11:09am 17 mm/hr Above high normal 0-14 [facility] [id number] [address] [facility] [address]O-Vydxuycw Protein, QuantitativeOct2024 10:06am February 13, 2025 11:17am< 0.5 mg/dL0.0-0.5F[facility] [id number] [address] [facility] [address]Rpcrzyect A IgM AntibodyFebruary 13, 2025 10:06amFebruary 14, 2025 3:36amNegativeNegativeA negative anti-HAV IgM result suggests no recent orcurrent HAV infection.[facility] B Core IgM Antibody February 13, 2025 10:06amFebruary 14, 2025 3:36amNegativeNegativeLabCorp FactorOct2024 10:06amFebruary 14, 2025 7:36am12.9 [IU]/mL<14.0Performed at: [facility] [employer] [id number] Director: Lyle Harp PhD, Phone: [phone] [facility] Citrullinated Peptid IgG/IgAOct2024 10:062024 12:08pm9 units0-19Negative <20 Weak positive 20 - 39 Moderate positive 40 - 59 Strong positive >59Performed at:[facility] [employer] [id number] Director: Lyle Harp PhD, Phone: [phone] B Surface AntigenFebruary 13, 2025 10:062024 3:36amNegativeNegativeLabCo Hepatitis C Antibody (EIA)February 13, 2025 10:06amFebruary 14, 2025 3:36amNon reactiveNon ReactiveLab[facility] C RNA (PCR) IU/mLFebruary 13, 2025 10:06amFebruary 14, 2025 10:06amN/ALabCorp C RNA (PCR) copies mtd92Gcczcvt2024 10:06amOct2024 10:06amN/A [facility] C InterpretationOct2024 10:06amOct2024 3:36amComment.Not infected with HCV unless early or acute infection issuspected (which may be delayed in an immunocompromisedindividual), or other evidence exists to indicate HCVinfection.Performed at: [address] [id number] Director: Lyle Harp PhD, Phone: [phone] Test (QFT) CriteriaFebruary 13, 2025 10:06am February 17, 2025 11:07pmComment.QuantiFERON-TB Gold Plus is a qualitative indirect test forM tuberculosis infection (including disease) and isintended for use in conjunction with risk assessment,radiography, and other medical and di agnostic evaluations.The QuantiFERON-TB Gold Plus result is determined bysubtracting the Nil value from either TB antigen (Ag)value. The Mitogen tube serves as a control for the test.[facility] Test (QFT) Antigen 1 February 13, 2025 10:06amFebruary 17, 2025 11:07pm0.17 [IU]/mL.[facility] Test (QFT) Antigen 2February 13, 2025 10:06amOct2024 11:07pm0.19 [IU]/mL.[facility] Test (QFT) NilFebruary 13, 2025 10:06amOct2024 11:07pm0.01 [IU]/mL.[facility] Test (QFT) MitogenOct2024 10:06amOctober 2024 11:07pm>10.00 [IU]/mL. [facility] Test (QFT) Gold PlusOctober 2024 10:06amOctober 2024 11:07pmNegativeNegativeNo response to M tuberculosis antigens detected.Infection with M tuberculosis is unlikely, but highriskindividuals should be considered for additional testing(ATS/IDSA/CDC Clinical Practice Guidelines, 2017). Thereference range is an Antigen minus Nil result of <0.35IU/mL.The specimen received for QuantiFERON testing was incubatedby the ordering institution. Specific procedures outlinedin ourDirectory of Services and in the package insert forthe QuantiFERON Gold (In Tube) test must be follo wed toenable for proper stimulation of cells for the productionof interferon gamma. Chemiluminescence immunoassaymethodologyPerformed at: [employer] [id number] Director: Lyle Harp PhD, Phone: [phone] Vital Signs Vital Reading Result Reference Range Collection Date/Time Height 70 [in_i] February 13, 2025 8:89rpFcqyjg409.76 kgFebruary 13, 2025 8:40amHeart Rate78 /raj13-590LjdnpvbFebruary 13, 2025 8:40amRespiratory rate18 /cyd02-80Eyixyyn 17th, 2025 8:40amOxygen saturation by Pulse noggigzf50 %95-100February 13, 2025 8:40amBP Fsjinjhy116 mm[Hg]100-140February 13, 2025 8:40amBP Wecwxqkng977 mm[Hg]60-100February 13, 2025 8:40amBMI (Body Mass Index)48.6 kg/z1LheuacxFebruary 13, 2025 8:82jzLnktfm70 [in_i]March 19, 2025 9:87oxPqmmmg450.22 kg March 19, 2025 9:44amBody Tropstlcboq31.8 [degF]97.6-99.0Nov2024 9:44amHeart Rate75 /gzz58-877QywfynceMarch 19, 2025 9:44amRespiratory rate18 /fli53-34UzbvwuifMarch 19, 2025 9:44amOxygen saturation by Pulse onswgcem86 %95-100 March 19, 2025 9:44amBP Vgeompji637 mm[Hg]100-140March 19, 2025 9:44am BP Cyrcidqpg80 mm[Hg]60-100March 19, 2025 9:44amBMI (Body Mass Index)48.7 kg/y0SfiidiwyMarch 19, 2025 9:44am Advance Directives Advance Directive Response Recorded Date/ Time Advance Directives No November 12 11:38am Insurance Providers Guarantor Tee Mckeon Address [address] [place] [id number] Info.Home Phone: Coverage Status Update:2025 Payer Group Member ID Coverage Type Subscriber Relationship to Subscriber Effective Date Expiration Date Naheed CARLOS Id: [id number] Martin Id: [id number] [facility] [address] Home Phone: [employer] Id: [id number] S Martin Id: [id number] [address] [place] [id number] Home Phone: Email: [email or web address] Encounters Encounter Location(s) Arrival/Admit Date Discharge/Departure Date Discharge/Departure Disposition Provider(s) Departed Physician/ Provider Office Visit -[facility] [place] February 09, 2025 9:26am February 09, 2025 10:06am Discharged to home care or self care (routine discharge) Buck Mcfaddne DO Departed Physician/ Provider Office Visit -[facility] February 13, 2025 9:39am February 13, 2025 10:23am Discharged to home care or self care (routine discharge) Ron Talavera MD Departed Clinical -Lab [facility] February 13, 2025 10:36am February 13, 2025 10:37am Discharged to home care or self care (routine discharge) Jet Talavera MD Departed Physician/ Provider Office Visit -[facility] [place] March 19, 2025 9:22am March 19, 2025 10:13am Discharged to home care or self care (routine discharge) Orville Asher MD Recent Diagnosis Onset Date Admit Date Arthritis of right knee Unknown February 09, 2025 9:26am BMI 45.0-49.9, adult Unknown January 9:26am Class 3 severe obesity with body mass index (BMI) of 45.0 to 49.9 in adult Unknown February 09, 2025 9:26 am Primary osteoarthritis of left knee Unknown February 09, 2025 9:26am Primary osteoarthritis of right hip Unknown February 09, 2025 9:26am High risk medication use Unknown February 13, 2025 9:39am Psoriasis Unknown February 13 9:39am Psoriatic arthritis Unknown January 9:39am Right anterior knee pain Unknown February 13, 2025 9:39am Annual physical exam Unknown March 192024 9:22am HTN (hypertension) Unknown February 9:22am Assessments Diagnosis Onset Date Resolution Status Admit Date Arthritis of right knee acuteOctober 2024 9:26amBMI 45.0-49.9, adultacuteOctober 2024 9:26am Class 3 severe obesity with body mass index (BMI) of 45.0 to 49.9 in adultacute February 09, 2025 9:26amPrimary osteoarthritis of left kneeacuteOct2024 9:26amPrimary osteoarthritis of right hipacuteOctober 2024 9:26amHigh risk medication useacuteOct2024 9:39amPsoriasisacuteOctober 2024 9:39amPsoriatic arthritisacuteOctober 2024 9:39amRight anterior knee painacuteOctober 2024 9:39amAnnual physical examacuteNov2024 9:22amHTN (hypertension)acuteNov2024 9:22am Plan of Treatment Author [facility]add[facility] 9:17amNicholajesse presents with bilateral knee DJD. At this juncture we have discussed the findings and diagnosis as well as personally reviewed appropriate imaging and performed interpretation of related testing and examination with the patient in office today. Prior medical notes from pain management at [place] and history have been reviewed. Today we have discussed degenerative joint disease of the knee and its treatment. Imaging was discussed and explained to the patient. We discussed recommended conservative therapies including physical therapy, anti-inflammatory medications, and weight loss strategies. We also discussed other treatment options including cortisone injections, Visco supplementation injections which are options for treatment. I have laid out the course of knee DJD including the end- stage treatment of total joint arthroplasty. The patient recognizes and understands our options and goals and we will move forward with our treatment. Today he would like to try cortisone injection bilateral knee. Risks and benefit of injection were discussed and verbal consent was obtained. Under sterile technique the patient's bilateral knee was injected via the inferolateral portal with 4 cc of Marcaine and 1 cc of Kenalog, this was tolerated well without any adverse reaction. Band-Aid was applied to the area. Patient does inquire about relation to his psoriasis. His joint pain seems to be related to knees and elbows where psoriatic patches are located. He could have some form of inflammatory arthropathy. I told him today that I feel the injections will treat the knees but there could be medical treatment that could provide ongoing relief since his x-rays do not support any advanced degenerative issues at this time. Discussed review and evaluation with rheumatology which the patient wishes to move forward with. We will place referral today The patient has been involved in our cooperative treatment plan and agrees to move forward with treatment at this time. Today we have discussed degenerative joint disease of the hip and its treatment. Imaging was explained and discussed with the patient. We discussed recommended conservative therapies including physical therapy, anti-inflammatory medications, and weight loss strategies. We also discussed other treatment options including cortisone injections. I have laid out the course of hip DJD including the end-stage treatment of total joint arthroplasty. The patient recognizes and understands our options and goals and we will move forward with our treatment. Continue to monitor symptoms. Today we discussed obesity. I have informed the patient the amount of stress it applies to our musculoskeletal system as well as the axial and appendicular skeleton. They understand how this can affect joint function as well as joint pain. We discussed the range of BMI and the patient's BMI of 48.6. We discussed weight loss strategies. Our discussion is limited to 5 minutes. We performed a 4/1cc Marcaine/Kenalog cortisone injection into the bilateral knee joint under sterile technique. Patient tolerated the injection well without adverse reaction. Patient may take ibuprofen 600 mg 3 times a day to help with any inflammation. We will send a referral to rheumatology for his joint pain and psoriasis. Patient can follow up as needed. Note scribed by GURVINDER Srinivasan, reviewed and amended by myself Buck Mcfadden D.O. Author Ron Talavera [facility] HospitalAuthoredOctober 2024 9:34amReferred to PT, may relate to PsA or be due to soft tissue injury, if no improvement with PT and injection with get MRI. discussed side effects of skyriza and ordered TB test. suspected based on patient's symptoms, treatment recommended for psoriasis should help if he has inflammatory joint pain related to that. Discussed importance of treating psoriasis as systemic inflammatory disease with even cardiac consequences. Discussed different options, avoid MTX due to concern of metabolic syndrome and fatty liver. recommend skyrizi, side effects discussed. will request approval. - Initiate treatment with SKYRIZI for psoriasis and potential psoriatic arthritis, pending insurance approval and TB blood test - Begin physical therapy for knee pain - Consider MRI if knee pain persists after physical therapy - Follow up in April or May to assess response to treatment - Perform lab work to check rheumatoid factor and inflammation markers Future Tests Future scheduled test information is unavailable Pending Tests Test Name Ordered Date Scheduled Date Comprehensive Metabolic Panel March 19 10:08am Future Visits Future appointment information is unavailable Future Procedures Procedure Name Ordered Date Scheduled Date A1C with Estimated Average Glu March 19 10:08am Complete Blood Count Auto DiffNovember 2024 10:08amLipid PanelNov2024 10:08amPSA Screen (Yearly Only)March 19, 2025 10:08amThyroid Stimulating HormoneNov2024 10:08am Future Medications Future medication information is unavailable Patient Instructions Patient instructions are unavailable
--- OUTSIDE RECORDS SUMMARY | 2025-03-20 07:34 | XMS_ITS | CCD ---
Author Organization [facility] Care Team Providers Care Escalator Operator Name Role Phone DR CHANTELL MALAVE Primary [...] Unavailable ANANDA, DR CHANTELL Walter Admitting Unavailable ORVILLE SILVA Attending Unavailable Orville Silva MD Primary Care Provider [phone] NON STAFF Primary Care Provider UnavailBuck Love DO Attending Provider Orville Silva MD Primary Care Provider Buck Walker DO Attending Provider [phone] Ron Talavera MD Attending Provider Unavailable Jet Talavera MD Attending Provider NON STAFF Primary Care Unavailable Buck Walker Attending Unavailable Buck Walker Admitting Unavailable Orville Silva Primary Care Unavailable Jet Talavera Attending Unavailable eJt Talavera Admitting Unavailable Orville Silva MD Primary Care Provider Medications Current Medications MedicationDrug Class(es)DatesSig (Normalized)Sig (Original)acetaminophen 300 mg / codeine phosphate 30 mg oral tablet (5 sources)Opioid AgonistStart: 30-64-5872cxmx 1 tablet by mouth every six hours as neededbaclofen 10 mg oral tablet (6 sources)gamma-Aminobutyric Acid-ergic AgonistStart: 21-90-2803azhp 1 tablet by mouth once daily as neededhydroCHLOROthiazide 25 mg / lisinopril 20 mg oral tablet (8 sources)Thiazide Diuretic, Angiotensin Converting Enzyme InhibitorStart: 65-77-8915ikrf 1 tablet by mouth once dailylisinopril-hydroCHLOROthiazide 20-25 MG tablet Indications: Essential hypertension, benign TAKE 1 TABLET BY MOUTH DAILY 90 tablet 3 04/11/2024 Active Completed/Discontinued Medications MedicationDrug Class(es)DatesSig (Normalized)Sig (Original)doxycycline hyclate 100 mg oral capsule (6 sources)Tetracycline-class DrugStart: 02-28-2024 End: 93-45-7024ivlt 1 capsule by mouth once dailyDoxycycline Hyclate 100 mg capsule Discontinued 100 MG PO Daily February 28, 2024 12:00am November 12, 2024 9:23amzonisamide 50 mg oral capsule (6 sources)Anti-epileptic AgentStart: 02-28-2024 End: 23-80-2038Jjzoopwnni 50 mg capsule Discontinued MG PO February 28, 2024 12:00am February 13, 2025 9:42amStart: 31-24-1820Owqwphidky Active MG PO February 28, 2024 12:00am Problems Active Problems Problem ClassificationProblemDateDocumented DateEpisodic/ChronicEpilepsy; convulsions (6 sources)Epilepsy; Translations: [Epilepsy, unspecified, not intractable, without status epilepticus]66-35-8844GebfwxlJvyaogxut hypertension (12 sources)Hypertensive disorder; Translations: [Essential (primary) hypertension]Onset: 934551-83-6532WmdfkniKith and other crystal arthropathies (6 sources)Gout; Translations: [Gout, unspecified]Onset: 322210-67-6645 ChronicOsteoarthritis (20 sources)Osteoarthritis of right hip joint; Translations: [Unilateral primary osteoarthritis, right hip]Onset: 647681-48-7609VxjqmjbYzwiv aftercare (2 sources)Taking high risk medication; Translations: [Other halfway (current) drug therapy]08-07-1170AclrajflEgswa inflammatory condition of skin (13 sources)Psoriasis; Translations: [Psoriasis, unspecified]Onset: 03-27-2023 04-59-8188AismhedUpglj inflammatory condition of skin (2 sources)Psoriatic arthritis; Translations: [Arthropathic psoriasis, unspecified]40-08-1538DefbyzvDgpzn inflammatory condition of skin (1 source)Arthropathic psoriasis, unspecified; Translations: [Arthropathic psoriasis, unspecified]Onset: 73-94-8315PserdxxZznqw non-traumatic joint disorders (5 sources)Hip pain; Translations: [Pain in right hip]08-69-2400RyjauqhrBpgsk non-traumatic joint disorders (3 sources)Anterior knee pain; Translations: [Pain in right knee]EpisodicOther nutritional; endocrine; and metabolic disorders (17 sources)Body mass index 40+ - severely obese; Translations: [Morbid (severe) obesity due to excess calories]Onset: 078147-34-6894OfvpwqyYwbkp nutritional; endocrine; and metabolic disorders (11 sources)Severe obesity; Translations: [Class 3 severe obesity with body mass index (BMI) of 45.0 to 49.9 inadult]18-61-9044RimpsnzQhirv screening for suspected conditions (not mental disorders or infectious disease) (1 source)Encounter for screening for malignant neoplasm of prostate; Translations: [ENC SCREEN MALIG NEOPLASM PROSTATE]Onset: 74-24-9862Eryyfkbd Residual codes; unclassified (6 sources)Obstructive sleep apnea syndrome; Translations: [Obstructive sleep apnea (adult) (pediatric)]Onset: 677880-63-9448VwlvcbtUvyntfzt codes; unclassified (1 source)FH: Psoriasis; Translations: [Family history of diseases of the skin and subcutaneous tissue]62-93-6714CtergtefEgmvowruptdp (5 sources)L40.9 - Psoriasis, unspecifiedUnclassified (2 sources)M25.561 - Pain in right knee Past or Other Problems Problem ClassificationProblemDateDocumented DateEpisodic/ChronicOther connective tissue disease (6 sources)Bilateral bone spur of calcaneum; Translations: [Calcaneal spur, right foot]Onset: 198239-54-7363DnmsezxvYcvqy non-traumatic joint disorders (1 source)Pain in right hip; Translations: [Pain in right hip]Onset: 11-12-2024 Episodic Results Test NameValueInterpretationReference RangeFacilityC reactive protein [Mass/volume] in Serum or PlasmaOrdered By: Ron Talavera on 81-77-5626EOT [Mass/Vol]< 0.5 mg/dL0.0-0.5FAultman Orrville HospitalC-Reactive Protein on 79-60-6757UIZ [Mass/Vol]mg/LNormal0.0-0.5The [facility] Physician GroupComment on above:Result Comment: PERFORMED BY: [place] [address] PATHOLOGIST SYNCHRONIZER ALEJANDRO HARO M.D.Performed By: #### CRP, ESR #### [address] #### HEPACUTE, CCP, QUANT TB, RA #### [facility] ,Cyclic Citrulliated Pep Abon 64-40-8756Xrphwp Citrulliated Pep Jw4Fowoud9-30Xnh [facility] Physician GroupComment on above:Result Comment: Negative <20 Weak positive 20 - 39 Moderate positive 40 - 59 Strong positive >59 Performed at: [facility] [place] [id number] Clinical Laboratory Technologist: Lyle Harp PhD, Phone: [phone] PERFORMED BY: [place] [address] PATHOLOGIST SYNCHRONIZER ALEJANDRO HARO M.D.Performed By: #### CRP, ESR #### [address] #### HEPACUTE, CCP, QUANT TB, RA #### [facility] ,Erythrocyte Sedimentation Rateon 11-29-8653GEU (Bld) [Velocity]17 mm/hHigh0-14 The [facility] Physician GroupComment on above:Result Comment: PERFORMED BY: [place] [address] PATHOLOGIST SYNCHRONIZER ALEJANDRO HARO M.D.Performed By: #### CRP, ESR #### [place] [address] [place] #### HEPACUTE, CCP, QUANT TB, RA #### [facility] ,Erythrocyte sedimentation rate by Photometric methodOrdered By: Rno Talavera on 42-65-0826HOQ Photometric method (Bld) [Velocity]17 mm/hrHigh0-14[facility] Medical CenterHepatitis Acute Panelon 95-24-4600AWgEv ScreenNegative NormalNegativeThe [facility] Physician GroupComment on above:Performed By: #### CRP, ESR #### [place] [address] [place] #### HEPACUTE, CCP, QUANT TB, RA #### [facility] ,Hepatitis A Antibody IgMNegativeNormalNegativeThe [facility] Comment on above:Result Comment: A negative anti-HAV IgM result suggests no recent or current HAV infection.Performed By: #### CRP, ESR #### [address] #### HEPACUTE, CCP, QUANT TB, RA #### [facility] ,Hepatitis B Core Antibody IgMNegativeNormalNegativeThe [facility] Physician GroupComment on above:Performed By: #### CRP, ESR #### [place] [address] [place] #### HEPACUTE, CCP, QUANT TB, RA #### [facility] ,Hepatitis C Virus AntibodyNon-ReactiveNormalNon ReactiveThe [facility] Physician GroupComment on above:Performed By: #### CRP, ESR #### [place] [address] [place] #### HEPACUTE, CCP, QUANT TB, RA #### [facility] ,Interpretation Hepatitis CCommentNormal.The [facility] Physician GroupComment on above:Result Comment: Not infected with HCV unless early or acute infection is suspected (which may be delayed in an immunocompromised individual), or other evidence exists to indicate HCV infection. Performed at: - [facility] [id number] Clinical Laboratory Technologist: Lyle Harp PhD, Phone: [phone] PERFORMED BY: [place] [address] PATHOLOGIST SYNCHRONIZER ALEJANDRO HARO M.D.Performed By: #### CRP, ESR #### [place] [address] [place] #### HEPACUTE, CCP, QUANT TB, RA #### [facility] ,QuantiFERON TB Goldon 94-30-7423YOTU CriteriaCommentNormal.The [facility] Physician GroupComment on above:Result Comment: QuantiFERON-TB Gold Plus is a qualitative indirect test for M tuberculosis infection (including disease) and is intended for use in conjunction with risk assessment, radiography, and other medical and diagnostic evaluations. The QuantiFERON-TB Gold Plus result is determined by subtracting the Nil value from either TB antigen (Ag) value. The Mitogen tube serves as a control for the test.Performed By: #### CRP, ESR #### [place] [address] [place] #### HEPACUTE, CCP, QUANT TB, RA #### [facility] ,Quant TB Ag Value0.17Normal.The [facility] Physician GroupComment on above: Performed By: #### CRP, ESR #### [place] [address] [place] #### HEPACUTE, CCP, QUANT TB, RA #### [facility] ,Quant TB Gold PlusNegativeNormalNegativeThe [facility] Physician GroupComment on above:Result Comment: No response to M tuberculosis antigens detected. Infection with M tuberculosis is unlikely, but high risk individuals should be considered for additional testing (ATS/IDSA/CDC Clinical Practice Guidelines, 2017). The reference range is an Antigen minus Nil result of <0.35 IU/mL. The specimen received for QuantiFERON testing was incubated by the ordering institution. Specific procedures outlined in our Directory of Services and in the package insert for the QuantiFERON Gold (In Tube) test must be followed to enable for proper stimulation of cells for the production of interferon gamma. Chemiluminescence immunoassay methodology Performed at: [facility] [employer] [id number] Clinical Laboratory Technologist: Lyle Harp PhD, Phone: [phone] PERFORMED BY: [place] [address] PATHOLOGIST SYNCHRONIZER ALEJANDRO HARO M.D.Performed By: #### CRP, ESR #### [place] [address] [place] #### HEPACUTE, CCP, QUANT TB, RA #### [facility] ,Quant TB2 Ag Value0.19Normal.The [facility] Physician GroupComment on above: Performed By: #### CRP, ESR #### [address] #### HEPACUTE, CCP, QUANT TB, RA #### [facility] ,Quantiferon Nil Value0.01Normal.The [facility] Physician GroupComment on above: Performed By: #### CRP, ESR #### [address] #### HEPACUTE, CCP, QUANT TB, RA #### [facility] ,Quantiferon TB Mitogen>10.00Normal.The [facility] Physician GroupComment on above:Performed By: #### CRP, ESR #### [address] #### HEPACUTE, CCP, QUANT TB, RA #### [facility] ,Rheumatoid Factoron 33-42-1983Cxvmcqymfm Oyramo61.9Normal<14.0The [facility] Physician GroupComment on above:Result Comment: Performed at: [facility] [address] [place], [place] [id number] Clinical Laboratory Technologist: Lyle Harp PhD, Phone: [phone] By: #### CRP, ESR #### [place] [address] [place] #### HEPACUTE, CCP, QUANT TB, RA #### [facility] ,X-ray reportOrdered By: Mike Curry on 34-85-1756Pwbyl reportFIRWAYNE [facility] [address] [place] [address] XRay Report Signed Patient: Tee Mckeon MR#: [id number] : 1980 Acct:[id number] Age/Sex: 43 / M ADM Date: 5 Loc: SOXD Room: [facility] Attending Dr: Buck Walker DO Copies to: Buck Walker DO~ Ordering Provider: Buck Walker DO Date of Service: 11/12/24 XR/XR knee RT 4V*: M17.11 - Unilateral primary osteoarthritis, right knee ([id number]) XR/XR hip RT min 2V(w/wo pelvis)*: M17.11 - Unilateral primary osteoarthritis, right knee 3 views right knee plain film COMPARISON: 10/30/2024 HISTORY: Right hip and knee pain ACUTE FINDINGS: No acute findings DEGENERATIVE CHANGE: Similar mild degenerative changes SOFT TISSUE FINDINGS: Unremarkable JOINT EFFUSION: None POSTOP CHANGES: None BONE MINERALIZATION: Adequate XR/XR knee RT 4V* IMPRESSION: Similar mild degenerative changes 2 views right hip a single view pelvis Mild bilateral hip degeneration. No AVN. No articular collapse. No fracture. IMPRESSION: Mild bilateral hip degeneration Impression dictated by: Mike Curry M.D. 11/12/2024 3:45 PM Dictation Location: [place] [address] Transcribed By: [facility] 11/12/24 1545 Dictated By: Mike Curry DO 11/12/24 1544 Signed By: 11/12/[address] [facility] Medical CenterXR hip RT min 2V(w/wo pelvis)*on 98-76-5261KU hip RT min 2V(w/wo pelvis)*[facility] [place] [facility] [place] [address] XRay Report Signed Patient: Tee Mckeon MR#: [id number] : 1980 Acct:[id number] Age/Sex: 43 / M ADM Date: 11/12/24 Loc: SOXD Room: Type: [facility] CLI Attending Dr: Buck Walker DO Copies to: Buck Walker DO Ordering Provider: Buck Walker DO Date of Service: 11/12/24 XR/XR knee RT 4V*: M17.11 - Unilateral primary osteoarthritis, right knee ([id number]) XR/XR hip RT min 2V(w/wo pelvis)*: M17.11 - Unilateral primary osteoarthritis, right knee 3 views right knee plain film COMPARISON: 10/30/2024 HISTORY: Right hip and knee pain ACUTE FINDINGS: No acute findings DEGENERATIVE CHANGE: Similar mild degenerative changes SOFT TISSUE FINDINGS: Unremarkable JOINT EFFUSION: None POSTOP CHANGES: None BONE MINERALIZATION: Adequate XR/XR knee RT 4V* IMPRESSION: Similar mild degenerative changes 2 views right hip a single view pelvis Mild bilateral hip degeneration. No AVN. No articular collapse. No fracture. IMPRESSION: Mild bilateral hip degeneration Impression dictated by: Mike Curry M.D. 11/12/2024 3:45 PM Dictation Location: [place] [address] Transcribed By: [facility] 11/12/24 1545 Dictated By: Mike Curry DO 11/12/24 1544 Signed By: 11/12/24 1545[facility] Physician GroupMR LUMBAR SPINE WO CONon 42-03-0152[place] [address] Magnetic Resonance Report Signed Patient: TEE MCKEON MR#: [id number] : 1980 Acct:[id number] Age/Sex: 43 / M ADM Date: 11/07/24 Loc: MRI Attending Dr: Park Falcon NP Ordering Physician: Park Falcon NP Date of Service: 11/07/24 Procedure(s): MR lumbar spine wo con Accession Number(s): [id number] cc: Park Falcon NP; Orville Silva M.D. [address] [address] Patient Name: TEE MCKEON MRN: [id number] date: 1980 Sex: M Assigned Patient Location: MRI Current Patient Location: MRI Accession/Order Number: [id number] Exam Date: 11/07/2024 09:16 Report Date: 11/07/2024 09:25 At the request of: PARK FALCON NP Procedure: MR lumbar spine wo con MRI LUMBAR SPINE WITHOUT CONTRAST COMPARISON: Plain films 10/30/2024 CLINICAL DATA: Back pain radiating to the right in hip for the past 2 weeks. No reported injury. Multiecho imaging in the axial and sagittal plane was performed without contrast. Alignment is maintained on the sagittal sequences. There are no acute compression fractures or marrow edema. The conus medullaris terminates at T12-L1 and is normal in caliber and signal. No paraspinal soft tissue abnormalities are noted. From T12 - L1 through L3-4, the discs are within normal limits for height and signal intensity. There is no significant disc bulge or herniation. No central or foraminal stenosis is seen. At L4-5, there is subtle loss of disc height as well as disc desiccation. There is minimal annular disc bulging, greater toward the neural foramen. There is also mild right and moderate left facet hypertrophy. There is no thecal sac effacement. There is mild right and moderate left foraminal encroachment. At the lumbosacral junction, there is slight disc space narrowing however no disc desiccation is seen. Minor disco-osteophytic bulging is present. There is minimal facet disease. The thecal sac is already tapered and there is no effacement. There is slight inferior foraminal encroachment bilaterally, greater on left. MR/MR lumbar spine wo con IMPRESSION: DISCOVERTEBRAL DEGENERATIVE CHANGE AT L4-5 WITH ASSOCIATED FORAMINAL ENCROACHMENT, GREATER ON THE LEFT. Impression dictated by: Angie Chinchilla M.D. 11/07/2024 9:25 AM Dictation Location: [place] [address] Electronically authenticated by: [id number] Y Date: 11/07/2024 09:25 Dictated By: Angie Chinchilla M.D. Signed By: 11/07/2428 DD/ 4 TD/TT: Windows Security Analyst:TBHRadiology, Radiologist, - 11/07/[address] [address] Magnetic Resonance Report Signed Patient: TEE MCKEON MR#: [id number] : 1980 Acct:[id number] Age/Sex: 43 / M ADM Date: 11/07/24 Loc: MRI Attending Dr: Park Falcon NP Ordering Physician: Park Falcon NP Date of Service: 11/07/24 Procedure(s): MR lumbar spine wo con Accession Number(s): [id number] cc: Park Falcon NP; Orville Silva M.D. The [address] [id number] Patient Name: TEE MCKEON MRN: [id number] date: 1980 Sex: M Assigned Patient Location: MRI Current Patient Location: MRI Accession/Order Number: [id number] Exam Date: 11/07/2024 09:16 Report Date: 11/07/2024 09:25 At the request of: PARK FALCON NP Procedure: MR lumbar spine wo con MRI LUMBAR SPINE WITHOUT CONTRAST COMPARISON: Plain films 10/30/2024 CLINICAL DATA: Back pain radiating to the right in hip for the past 2 weeks. No reported injury. Multiecho imaging in the axial and sagittal plane was performed without contrast. Alignment is maintained on the sagittal sequences. There are no acute compression fractures or marrow edema. The conus medullaris terminates at T12-L1 and is normal in caliber and signal. No paraspinal soft tissue abnormalities are noted. From T12 - L1 through L3-4, the discs are within normal limits for height and signal intensity. There is no significant disc bulge or herniation. No central or foraminal stenosis is seen. At L4-5, there is subtle loss of disc height as well as disc desiccation. There is minimal annular disc bulging, greater toward the neural foramen. There is also mild right and moderate left facet hypertrophy. There is no thecal sac effacement. There is mild right and moderate left foraminal encroachment. At the lumbosacral junction, there is slight disc space narrowing however no disc desiccation is seen. Minor disco-osteophytic bulging is present. There is minimal facet disease. The thecal sac is already tapered and there is no effacement. There is slight inferior foraminal encroachment bilaterally, greater on left. MR/MR lumbar spine wo con IMPRESSION: DISCOVERTEBRAL DEGENERATIVE CHANGE AT L4-5 WITH ASSOCIATED FORAMINAL ENCROACHMENT, GREATER ON THE LEFT. Impression dictated by: Angie Chicnhilla M.D. 11/07/2024 9:25 AM Dictation Location: [place] [address] Electronically authenticated by: [id number] Y Date: 11/07/2024 09:25 Dictated By: Angie Chinchilla M.D. Signed By: 11/07/24927 DD/ 4 TD/TT: Windows Security Analyst: TOLU [facility] HospitalRadiology Study observation (narrative)[facility] LUMBAR SPINE WO CONOrdered By: Radiologist Radiology on 85-38-7067[facility] Work Phone: XR ANKLE RT MIN 3Von 40-26-8421[place], [place] [address] XRay Report Signed Patient: TEE MCKEON MR#: [id number] : 1980 Acct:[id number] Age/Sex: 43 / M ADM Date: 05/20/24 Loc: RAD Attending Dr: Sebastián Baldwin D.P.M. Ordering Physician: Sebastián Baldwin D.P.M. Date of Service: 05/20/24 Procedure(s): XR ankle RT min 3V Accession Number(s): [id number] cc: Sebastián Baldwin D.P.M.; Orville Silva M.D. The [place] [id number] Patient Name: TEE MCKEON MRN: [id number] date: 1980 Sex: M Assigned Patient Location: RAD Current Patient Location: RAD Accession/Order Number: [id number] Exam Date: 05/20/2024 07:45 Report Date: 05/20/2024 [...] Signed By: 05/20/24 1253 DD/ 1250 TD/TT: Windows Security Analyst:TBHRadiology, Radiologist, - 05/20/2024 [place] [address] XRay Report Signed Patient: TEE MCKEON MR#: [id number] : 1980 Acct:[id number] Age/Sex: 43 / M ADM Date: 05/20/24 Loc: RAD Attending Dr: Sebastián Baldwin D.P.M. Ordering Physician: Sebastián Baldwin D.P.M. Date of Service: 05/20/24 Procedure(s): XR ankle RT min 3V Accession Number(s): [id number] cc: Sebastián Baldwin D.P.M.; Orville Silva M.D. The [place] [id number] Patient Name: TEE MCKEON MRN: [id number] date: 1980 Sex: M Assigned Patient Location: [facility] Current Patient Location: RAD Accession/Order Number: [id number] Exam Date: 05/20/2024 07:45 Report Date: 05/20/2024 [...] Signed By: 05/20/24 1253 DD/ 1250 TD/TT: Windows Security Analyst: TOLU HealthcareRadiology Study observation (narrative)[facility] HealthcareXR ANKLE RT MIN 3VOrdered By: Radiologist Radiology on 62-47-0204UNJR [employer] Work Phone: XR Knee - left 4 Viewson 54-23-8530[place] [address] XRay Report Signed Patient: TEE MCKEON MR#: [id number] : 1980 Acct:[id number] Age/Sex: 42 / M ADM Date: 12/17/23 Loc: RAD Attending Dr: Dimitry Fisher M.D. Ordering Physician: Dimitry Fisher M.D. Date of Service: 12/17/23 Procedure(s): XR knee LT 4V Accession Number(s): [id number] cc: Dimitry Fisher M.D.; Orville Silva M.D. The [place] [id number] Patient Name: TEE MCKEON MRN: [id number] date: 1980 Sex: M Assigned Patient Location: [facility] Current Patient Location: Accession/Order Number: [id number] Exam Date: 12/17/2023 13:15 Report Date: 12/18/2023 [...] 2. Otherwise unremarkable knee. Electronically authenticated by: NATHAN KU Date: 12/18/2023 11:02 Dictated By: Nathan Ku M.D. Signed By: 12/18/23 1104 DD/ 1102 TD/TT: Windows Security Analyst:SHAWNEEadiolanjelica, Radiologist, - 12/18/2023 [place] [address] XRay Report Signed Patient: TEE MCKEON MR#: [id number] : 1980 Acct:[id number] Age/Sex: 42 / M ADM Date: 12/17/23 Loc: RAD Attending Dr: Dimitry Fisher M.D. Ordering Physician: Dimitry Fisher M.D. Date of Service: 12/17/23 Procedure(s): XR knee LT 4V Accession Number(s): [id number] cc: Dimitry Fisher M.D.; Orville Silva M.D. The [place] [id number] Patient Name: TEE MCKEON MRN: [id number] date: 1980 Sex: M Assigned Patient Location: RAD Current Patient Location: Accession/Order Number: [id number] Exam Date: 12/17/2023 13:15 Report Date: 12/18/2023 [...] 2. Otherwise unremarkable knee. Electronically authenticated by: NATHAN KU Date: 12/18/2023 11:02 Dictated By: Nathan Ku M.D. Signed By: 12/18/23 1104 DD/ 1102 TD/TT: Windows Security Analyst: TOLU HealthcareRadiology Study observation (narrative)[facility] InstituteXR Knee - left 4 ViewsOrdered By: Radiologist Radiology on 09-61-9130GLTV [employer] Work Phone: XR FOOT MANJINDER MIN 3 VIEWSon 25-72-4695[place] [address] XRay Report Signed Patient: TEE MCKEON MR#: [id number] : 1980 Acct:[id number] Age/Sex: 42 / M ADM Date: 10/25/23 Loc: Attending Dr: Uziel Miranda Ordering Physician: Uziel Miranda Date of Service: 10/25/23 Procedure(s): XR foot MANJINDER min 3V Accession Number(s): [id number] cc: Uziel Miranda; Orville Silva M.D. The [address] [address] Patient Name: TEE MCKEON MRN: [id number] date: 1980 Sex: M Assigned Patient Location: Current Patient Location: Accession/Order Number: [id number] Exam Date: 10/25/2023 14:52 Report Date: 10/25/2023 15:49 At the request of: UZIEL MIRANDA Procedure: XR foot MANJINDER min 3V EXAMINATION: [...] bilateral calcaneal enthesopathy Electronically authenticated by: FAVIO PERSE Date: 10/25/2023 15:49 Dictated By: Favio Peres M.D. Signed By: 10/25/23 1551 DD/ 1549 TD/TT: Windows Security Analyst:TBHRadiology, Radiologist, - 10/25/2023 [place] [address] XRay Report Signed Patient: TEE MCKEON MR#: [id number] : 1980 Acct:[id number] Age/Sex: 42 / M ADM Date: 10/25/23 Loc: Attending Dr: Uziel Miranda Ordering Physician: Uziel Miranda Date of Service: 10/25/23 Procedure(s): XR foot MANJINDER min 3V Accession Number(s): [id number] cc: Uziel Miranda; Orville Silva M.D. The [address] [address] Patient Name: TEE MCKEON MRN: [id number] date: 1980 Sex: M Assigned Patient Location: Current Patient Location: Accession/Order Number: [id number] Exam Date: 10/25/2023 14:52 Report Date: 10/25/2023 15:49 At the request of: UZIEL MIRANDA Procedure: XR foot MANJINDER min 3V EXAMINATION: [...] By: Favio Peres M.D. Signed By: 10/25/23 1555 DD/ 1549 TD/TT: Windows Security Analyst: TOL[facility] HealthcareRadiology Study observation (narrative)NOMS HealthcareXR FOOT MANJINDER MIN 3 VIEWSOrdered By: Radiologist Radiology on 56-42-5494EYGL Healthcare Work Phone: XR HIP LT MIN 2Von 74-48-[place], [place] [address] XRay Report Signed Patient: TEE MCKEON MR#: [id number] : 1980 Acct:[id number] Age/Sex: 42 / M ADM Date: 07/28/23 Loc: RAD Attending Dr: Dimitry Fisher M.D. Ordering Physician: Dimitry Fisher M.D. Date of Service: 07/28/23 Procedure(s): XR hip LT min 2V Accession Number(s): [id number] cc: Dimitry Fisher M.D.; Orville Silva M.D. The [place] [id number] Patient Name: TEE MCKEON MRN: [id number] date: 1980 Sex: M Assigned Patient Location: RAD Current Patient Location: Accession/Order Number: [id number] Exam Date: 07/28/2023 09:30 Report Date: 07/30/2023 [...] of the left hip. Electronically authenticated by: NATHAN KU Date: 07/30/2023 09:24 Dictated By: Nathan Ku M.D. Signed By: 07/30/23926 DD/ 3 TD/TT: Windows Security Analyst:SHAWNEEadiologdelgado, Radiologist, - 08/02/2023 [place] [address] XRay Report Signed Patient: TEE MCKEON MR#: [id number] : 1980 Acct:[id number] Age/Sex: 42 / M ADM Date: 07/28/23 Loc: RAD Attending Dr: Dimitry Fisher M.D. Ordering Physician: Dimitry Fisher M.D. Date of Service: 07/28/23 Procedure(s): XR hip LT min 2V Accession Number(s): [id number] cc: Dimitry Fisher M.D.; Orville Silva M.D. The [address] [id number] Patient Name: TEE MCKEON MRN: [id number] date: 1980 Sex: M Assigned Patient Location: RAD Current Patient Location: Accession/Order Number: [id number] Exam Date: 07/28/2023 09:30 Report Date: 07/30/2023 [...] of the left hip. Electronically authenticated by: NATHAN KU Date: 07/30/2023 09:24 Dictated By: Nathan Ku M.D. Signed By: 07/30/23926 DD/ 3 TD/TT: Windows Security Analyst: TOL[facility] HealthcareRadiology Study observation (narrative)NOMS HealthcareXR HIP LT MIN 2VOrdered By: Radiologist Radiology on 71-95-9207BEVM [employer] Work Phone: XR LUMBAR SPINE 6V W BENDINGon 57-53-2884[place], [place] [address] XRay Report Signed Patient: TEE MCKEON MR#: [id number] : 1980 Acct:[id number] Age/Sex: 42 / M ADM Date: 07/28/23 Loc: RAD Attending Dr: Dimitry Fisher M.D. Ordering Physician: Dimitry Fisher M.D. Date of Service: 07/28/23 Procedure(s): XR lumbar spine 6V w bending Accession Number(s): [id number] cc: Dimitry Fisher M.D.; Orville Silva M.D. The [place] [address] Patient Name: TEE MCKEON MRN: [id number] date: 1980 Sex: M Assigned Patient Location: RAD Current Patient Location: RAD Accession/Order Number: [id number] Exam Date: 07/28/2023 09:30 Report Date: 07/30/2023 [...] of lower lumbar spine. Electronically authenticated by: NATHAN KU Date: 07/30/2023 10:11 Dictated By: Nathan Ku M.D. Signed By: 07/30/23 1013 DD/ 1011 TD/TT: Windows Security Analyst:SHAWNEEadiologdelgado, Radiologist, - 08/02/2023 [place] [address] XRay Report Signed Patient: TEE MCKEON MR#: [id number] : 1980 Acct:[id number] Age/Sex: 42 / M ADM Date: 07/28/23 Loc: RAD Attending Dr: Dimitry Fisher M.D. Ordering Physician: Dimitry Fisher M.D. Date of Service: 07/28/23 Procedure(s): XR lumbar spine 6V w bending Accession Number(s): [id number] cc: Dimitry Fisher M.D.; Orville Silva M.D. The [place] [id number] Patient Name: TEE MCKEON MRN: [id number] date: 1980 Sex: M Assigned Patient Location: [facility] Current Patient Location: [facility] Accession/Order Number: [id number] Exam Date: 07/28/2023 09:30 Report Date: 07/30/2023 [...] of lower lumbar spine. Electronically authenticated by: NATHAN KU Date: 07/30/2023 10:11 Dictated By: Nathan Ku M.D. Signed By: 07/30/23 1013 DD/ 1011 TD/TT: Windows Security Analyst: [facility] HealthcareRadiology Study observation (narrative)[facility] InstituteXR LUMBAR SPINE 6V W BENDINGOrdered By: Radiologist Radiology on 52-09-9893CZGQ [employer] Work Phone: cbc AUTO DIFFon 79-39-8924YKIR #0.0 103/ulNormal 0.0-0.1[facility] WestComment on above:Performed By: #### CBC #### [facility] [address] [address] Sara KarenBasophils/100 WBC (Bld)0.4 %Normal0.2-2.0[facility] Comment on above:Performed By: #### CBC #### [facility] [address] [place] [address] Sara KarenEO #0.2 103/ulNormal0.0-0.7The Veterans Health AdministrationComment on above: Performed By: #### CBC #### [facility] [address] [address] Sara KarenEosinophils/100 WBC (Bld)3.1 %Normal0.9-7.0The [facility] Comment on above:Performed By: #### CBC #### [facility] [address] [place] [address] Sara KarenErythrocyte distribution width (RBC) [Ratio]12.8 %Xrbgex04.0-15.0The [facility] Health AdministrationComment on above:Performed By: #### CBC #### [facility] [address] [place] [address] Sara KarenHematocrit (Bld) [Volume fraction]44.8 %Bdxptt50.0-54.0The [facility] Health AdministrationComment on above:Performed By: #### CBC #### [facility] [address] [place] [address] Sara KarenHemoglobin (Bld) [Mass/Vol]14.8 g/qFGqaujh48.0-18.0The [facility] Health AdministrationComment on above:Performed By: #### CBC #### [facility] [address] [place] [address] Sara KarenIG #0.02 10e3/ulNormal0.00-0.03The [facility] Health AdministrationComment on above:Performed By: #### CBC #### [facility] [address] [place] [address] Sara KarenIG %0.3 %Normal0.0-0.5The [facility] Health AdministrationComment on above: Performed By: #### CBC #### [facility] [address] [place] [address] Sara KarenLYMPH #2.5 103/ulNormal1.2-3.8The [facility] Health AdministrationComment on above: Performed By: #### CBC #### [facility] [address] [place] [address] Sraa KarenLymphocytes/100 WBC (Bld)33.4 %Yihiom96.5-60.0The [facility] Comment on above:Performed By: #### CBC #### [facility] [address] [place] [address] Sara KarenMANUAL DIFF REQNONormalThe Veterans Health AdministrationComment on above: Performed By: #### CBC #### [facility] [address] [place] [address] Sara KarenMCH (RBC) [Entitic mass]29.2 clKgkfwy39.9-34.0The [facility] Comment on above:Performed By: #### CBC #### [facility] [address] [place] [address] Sara AdamsMCHC (RBC) [Mass/Vol]33.0 g/jHBowoql92.9-35.2[facility] Comment on above:Performed By: #### CBC #### [facility] [address] [place] [address] Sara DuranenMCV (RBC) [Entitic vol]88.4 bUBtgtml43.0-94.0The [facility] Comment on above:Performed By: #### CBC #### [facility] [address] [place] [address] Sara DuranenMONO #0.5 103/ulNormal0.3-0.8The [facility] Health AdministrationComment on above: Performed By: #### CBC #### [facility] [address] [place] [address] Sara KarenMonocytes/100 WBC (Bld)7.0 %Normal1.7-12.0The [facility] Comment on above:Performed By: #### CBC #### [facility] [address] [place] [address] Sara DuranenNEUT #4.2 103/ulNormal1.4-6.5The [facility] Health AdministrationComment on above: Performed By: #### CBC #### [facility] [address] [place] [address] Sara KarenNeutrophils/100 WBC (Bld)55.8 %Tvgfrp19.0-75.0The [facility] Comment on above:Performed By: #### CBC #### [facility] [address] [place] [address] Sara KarenPlatelet mean volume (Bld) [Entitic vol]10.7 fLNormal9.5-13.5The [facility] Health AdministrationComment on above:Performed By: #### CBC #### [facility] [address] [place] [address] Sara AdmriXAM672 103/rsCkmecr714-821Dea Veterans Health AdministrationComment on above: Performed By: #### CBC #### [facility] [address] [address] Sara KarenRBC5.07 106/ulNormal4.70-6.10The [facility] Health AdministrationComment on above: Performed By: #### CBC #### [facility] [address] [place] [address] Sara KarenWBC7.5 103/ulNormal4.0-11.0[facility] WestComment on above: Performed By: #### CBC #### [facility] [address] [address] Sara KarenGLYCOHEMOGLOBIN A1Con 62-66-1429SKF RECOMMENDATIONADA THERAPEUTIC TARGET 6.0 - 7.0 ACTION SUGGESTED > 7.0NoUniversity Hospitals Samaritan Medical CenterComment on above:Performed By: #### A1C #### [facility] [address] [place] [address] Sara KarenGlucose [Mass/Vol]120 mg/dLNoUniversity Hospitals Samaritan Medical CenterComment on above:Performed By: #### A1C #### [facility] [address] [place] [address] Sara ThfheCfR1r (Bld) [Mass fraction]5.8 %Normal<=6.0[facility] Comment on above:Performed By: #### A1C #### [facility] [address] [place] [address] Sara KarenLIPID PROFILEon 46-61-8663OOYW-HDL RATIO NORMSEE BELOWHenry County HospitalComment on above:Result Comment: 3.3 - 4.4 LOW RISK 4.4 - 7.1 AVERAGE RISK 7.1 - 11.0 MODERATE RISK >11.0 HIGH RISKPerformed By: #### CMP, LIPID, PSASC #### [facility] [address] [place] [address] Sara KarenCholesterol [Mass/Vol]166 mg/dLNoal<=200[facility] Comment on above:Performed By: #### CMP, LIPID, PSASC #### [facility] [address] [place] [address] Sara KarenCholesterol in HDL [Mass/Vol]46 mg/dLHenry County Hospital Comment on above:Performed By: #### CMP, LIPID, PSASC #### [facility] [address] [address] Sara KarenCholesterol in LDL [Mass/Vol]104.6 mg/dLHenry County Hospital Comment on above:Performed By: #### CMP, LIPID, PSASC #### [facility] [address] [place] [address] Sara KarenCholesterol.total/Cholesterol in HDL [Mass ratio]3.6 {ratio}Normal The Veterans Health AdministrationComment on above:Performed By: #### CMP, LIPID, PSASC #### [facility] [address] [place] [address] Sara KarenHDL NORMAL> or = 60 mg/dl - LOW CARDIOVASCULAR RISK <40 mg/dl - HIGH CARDIOVASCULAR RISKHenry County HospitalComment on above:Performed By: #### CMP, LIPID, PSASC #### [facility] [address] [place] [address] Sara KarenLDL CALC NORMALSEE BELOWHenry County HospitalComment on above: Result Comment: <100 mg/dl OPTIMAL 100 - 129 mg/dl NEAR OR ABOVE OPTIMAL 130 - 159 mg/dl BORDERLINE HIGH 160 - 189 mg/dl HIGH >190 mg/dl VERY HIGHPerformed By: #### CMP, LIPID, PSASC #### [facility] [address] [place] [address] Sara KarenTriglyceride [Mass/Vol]77 mg/dLNormal<=150[facility] Comment on above:Performed By: #### CMP, LIPID, PSASC #### [facility] [address] [place] [address] Sara KarenVLDL CALC15.4 mg/dLHenry County HospitalComment on above: Performed By: #### CMP, LIPID, PSASC #### [facility] [address] [place] [address] Sara KarenPROF 14(COMP METB)on 09-05-5484Bsrpuus [Mass/Vol]3.4 g/dLCritically low3.5-5.0[facility] WestComment on above:Performed By: #### CMP, LIPID, PSASC #### [facility] [address] [id number] Sara KarenAlbumin/Globulin [Mass ratio]0.8 {ratio}NormalRegency Hospital Cleveland West Comment on above:Performed By: #### CMP, LIPID, PSASC #### [facility] [address] [address] Sara KarenALP [Catalytic activity/Vol]80 U/EIeowas01-080VbwRegency Hospital Cleveland West Comment on above:Performed By: #### CMP, LIPID, PSASC #### [facility] [address] [place] [address] Sara KarenALT [Catalytic activity/Vol]55 U/JDujmim01-39ZmkRegency Hospital Cleveland West Comment on above:Performed By: #### CMP, LIPID, PSASC #### [facility] [address] [place] [address] Sara KarenAnion gap [Moles/Vol]11.4 mmol/LNormalRegency Hospital Cleveland WestComment on above:Performed By: #### CMP, LIPID, PSASC #### [facility] [address] [place] [address] Sara KarenAST [Catalytic activity/Vol]26 U/YXpnjcx18-15VrqRegency Hospital Cleveland West Comment on above:Performed By: #### CMP, LIPID, PSASC #### [facility] [address] [address] Sara KarenBilirubin [Mass/Vol]0.5 mg/dLNormal0.2-1.3TMercy Health Urbana Hospital Comment on above:Performed By: #### CMP, LIPID, PSASC #### [facility] [address] [place] [address] Sara KarenCalcium [Mass/Vol]9.1 mg/dLNormal8.4-10.2[facility] Comment on above:Performed By: #### CMP, LIPID, PSASC #### [facility] [address] [place], [place] [address] Sara KarenChloride [Moles/Vol]106 mmol/GHgzphi40-733Ftd [facility] Comment on above:Performed By: #### CMP, LIPID, PSASC #### [facility] [address] [place] [address] Sara KarenCO2 [Moles/Vol]30.9 mmol/LCritically high22.0-30.0The [facility] Health AdministrationComment on above:Performed By: #### CMP, LIPID, PSASC #### [facility] [address] [place] [address] Sara KarenCreatinine [Mass/Vol]0.95 mg/dLNormal0.66-1.25The [facility] Comment on above:Performed By: #### CMP, LIPID, PSASC #### [facility] [address] [place] [address] Sara KarenEGFR-AF ST HELENIAN>60Normal>=60The [facility] Health AdministrationComment on above: Performed By: #### CMP, LIPID, PSASC #### [facility] [address] [place] [address] Sara KarenEGFR-NON AF ST HELENIAN>60Normal>=60The [facility] Health AdministrationComment on above:Performed By: #### CMP, LIPID, PSASC #### [facility] [address] [place] [address] Sara KarenGlobulin (S) [Mass/Vol]4.1 g/dLNormalThe [facility] Health AdministrationComment on above:Performed By: #### CMP, LIPID, PSASC #### [facility] [address] [place] [address] Sara KarenGlucose [Mass/Vol]106 mg/rVWzmhqs33-766Vof [facility] Health AdministrationComment on above:Performed By: #### CMP, LIPID, PSASC #### [facility] [address] [place] [address] Sara KarenPotassium [Moles/Vol]4.3 mmol/LNormal3.4-5.0[facility] Comment on above:Performed By: #### CMP, LIPID, PSASC #### [facility] [address] [place], [place] [address] Sara KarenProtein [Mass/Vol]7.5 g/dLNormal6.1-8.2The [facility] Health AdministrationComment on above:Performed By: #### CMP, LIPID, PSASC #### [facility] [address] [place], [place] [address] Sara KarenSodium [Moles/Vol]144 mmol/DIypibx761-007Ufc [facility] Comment on above:Performed By: #### CMP, LIPID, PSASC #### [facility] [address] [place], [place] [address] Sara KarenUrea nitrogen [Mass/Vol]11.0 mg/dLNormal9.0-20.0The [facility] Health AdministrationComment on above:Performed By: #### CMP, LIPID, PSASC #### [facility] [address] [place], [place] [address] Sara KarenUrea nitrogen/Creatinine [Mass ratio]11.6 mg/mgNormalThe Veterans Health AdministrationComment on above:Performed By: #### CMP, LIPID, PSASC #### [facility] [address] [place], [place] [address] Sara Angie Vital Signs Date TimeVital SignValuePerforming OhyvvgrsdJzkgaygc00-93-1882 09:40-0400Body byzxyr694.8 cmOrville Silva MD Work Phone: [phone] [place], [place] [address]210-17-2025 09:40-0400 Body mass index (BMI) [Ratio]48.6 kg/m2Orville Silva MD Work Phone: [phone]-[facility]10-17-2025 09:40-0400 Body oygnze203.76 kgOrville Silva MD Work Phone: [phone]-[facility]ullivanMer[facility]10-17-2025 09:40-0400 Diastolic blood zxuepnjv839 mm[Hg]Orville Silva MD Work Phone: [phone] [place], [place] [address]210-17-2025 09:40-0400 Heart rate78 /minOrville Silva MD Work Phone: [facility]10-17-2025 09:40-0400 Respiratory rate18 /Tigist Silva MD Work Phone: [facility]10-17-2025 09:40-0400 SaO2% (BldA) [Mass fraction]96 %Orville Silva MD Work Phone: [facility]10-17-2025 09:40-0400 Systolic blood uocrnqww880 mm[Hg]Orville Silva MD Work Phone: [facility]07-16-2025 09:21-0400 [address]nfufz672.[address] [facility]07-16-2025 09:21-0400Body mass index (BMI) [Ratio]48.6 kg/y0AvapccsfzMercy Health St. [facility]'S Medical Center07-16-2025 09:21-0400Body xpuvwj013.[address] [facility] Encounters Encounter DateEncounter TypeCare ProviderFacilityStart: 02-13-2025 End: 63-71-9544froibknxakLdhy Naderer MD Work Phone: [phone]-Dyshxvtkn Health RheumatologyStart: 02-13-2025 End: 62-45-4254Mfdfcns encounter procedureRon Talavera [facility] Work Phone: Start: 02-09-2025 End: 12-14-6798odkwkrhravBQPAshtabula County Medical Center Work Phone: Start: 02-09-2025 End: 17-00-1905Pagquob encounter procedureJustgermain Walker [facility] Work Phone: Start: 11-12-2024 End: 16-32-7874ussykapnwlCXWAshtabula County Medical Center Work Phone: Start: 11-12-2024 End: 64-41-3393Ulpnnzs encounter procedureJumatt Walker [facility] Work Phone: Start: 11-07-2024 End: 35-23-1900Vrqcbizuj Result EncounterGeneric External Data ProviderNOMS External Department UnsolicitedStart: 11-07-2024 End: 75-41-8350Mnmaisqhx Result EncounterGeneric External Data ProviderNOMS External Department UnsolicitedStart: 05-20-2024 End: 92-96-4454Cwxuekrtv Result EncounterGeneric External Data ProviderNOMS External Department UnsolicitedStart: 05-20-2024 End: 07-76-2540Rosficlwl Result EncounterGeneric External Data ProviderNOMS External Department UnsolicitedStart: 02-28-2024 End: 31-23-3159eqfgtafmlnBcifwtkdpOhioHealth Doctors Hospital Work Phone: Start: 02-28-2024 End: 80-95-8310Atvbgvg encounter procedureAsheville [facility] Work Phone: Start: 02-26-2024 End: 80-16-6492ihtzsqocoyMrobqpiyyOhioHealth Doctors Hospital Work Phone: Start: 02-26-2024 End: 89-71-1454Weqppzb encounter procedureAsheville Specialty [facility] Work Phone: Start: 12-18-2023 End: 19-27-9611Wjbikzria Result EncounterGeneric External Data ProviderNOMS External Department UnsolicitedStart: 12-18-2023 End: 03-31-4352Yxxwfgcqk Result EncounterGeneric External Data ProviderNOMS External Department UnsolicitedStart: 10-25-2023 End: 28-34-3352Ypmfbkjpc Result EncounterGeneric External Data ProviderNOMS External Department UnsolicitedStart: 10-25-2023 End: 25-86-7245Pnuovxrtc Result EncounterGeneric External Data ProviderNOMS External Department UnsolicitedStart: 07-30-2023 End: 76-13-8563Yomgkbolw Result EncounterGeneric External Data ProviderNOMS External Department UnsolicitedStart: 07-30-2023 End: 12-64-1648Zzomdtsiq Result EncounterGeneric External Data ProviderNOMS External Department UnsolicitedStart: 03-27-2023 End: 83-36-1486ftpoxibaozWKSR NADERERNot AvailableStart: 94-37-0958Yeqoltsam for general adult medical examination without abnormal findingsDR CHANTELL MALAVEBerger Hospitaltart: 10-20-2020 End: 61-28-3457uxydgrkvgyFX CHANTELL Walter BRITTANIMARCO ANTONIOFacility:Q5Kjjyn: 10-20-2020 End: 21-25-8311Gecpwggwv for general adult medical examination without abnormal findings CHANTELL Walter ANANDAFacility:T4Tfurp: 08-19-2020 End: 54-25-7857vgpfhxjsnvWT KIM Saba BRITTANIIGHTFacility:T5Ygzog: 07-27-2020 End: 37-65-0681urfkrjgpsaEL NONE LISTED REQUESTFacility:H1 Procedures DateProcedureProcedure DetailPerforming ClinicianStart: 40-13-8641Rbsqr X-ray of right hipStart: 59-11-2366F-ray of right knee, four viewsStart: 88-75-2748DE LUMBAR SPINE WO CONGeneric External Data ProviderStart: 64-69-4549CT ANKLE RT MIN 3VGeneric External Data ProviderStart: 69-12-8990Zvxdptfvgk exam knee complete 4/more viewsGeneric External Data ProviderStart: 81-44-6952QX FOOT MANJINDER MIN 3 VIEWSGeneric External Data ProviderStart: 43-97-6300XF LUMBAR SPINE 6V W BENDINGGeneric External Data ProviderStart: 07-43-2573IL HIP LT MIN 2VGeneric External Data ProviderStart: 53-11-1542VQV screeningDR CHANTELL MALAVEComment on above:Performed By: #### CMP, LIPID, PSASC #### [facility] [address] [place] [address] Sara Adams Plan of Treatment DateCare ActivityDetailAuthorStart: 29-29-0664Sehjdkxzt monophosphate.cyclic [Moles/volume] in Serum or PlasmaSamaritan North Health Centertart: 51-80-9981Yvtbgpexso factor [Units/volume] in Serum or PlasmaSamaritan North Health Centertart: 79-02-1651CyxxcjdvpMer[address] Health [address] [facility] CenterStart: 51-54-8764Qfqusiz referralOhiohealth Doctors Hospital Work Phone: Start: 69-60-5724Bsvseazva vaccinationInfluenza Vaccine (#1)[facility] InstituteStart: 96-13-3868Gbbnq X-ray of right hipXR hip RT min 2V(w/wo pelvis)*[facility] Centertart: 91-69-3763R-ray of right knee, four viewsXR knee RT 4V*[facility] Centertart: 70-41-6632KQ Hip - right 2 ViewsSamaritan North Health Centertart: 35-83-6970KR Knee - right [address] Rita[facility]S Medical CenterHerancho [facility] A virus antibody, IgM [facility] B core antibody measurement, IgM [facility] B virus surface Ag [Presence] in Serum or Plasma by ImmunoassayMercy Health St. Rita'S Medical CenterHerancho los amigos [facility] rehabilitation center C virus IgG Ab [Presence] in Serum or Plasma by ImmunoassayProMedica [facility] C virus RNA [log units/volume] (viral load) in Serum or Plasma by ADAN with probe detection [facility] C virus RNA [Units/volume] (viral load) in Serum or Plasma by ADAN with probe detectionMercy Health St. Rita'S Medical CenterInterferon gamma assayMercy Health St. Rita'S Medical CenterMycobacterium tuberculosis stimulated gamma interferon [Interpretation] in Blood Qualitative [facility] Medical CenterMycobacterium tuberculosis stimulated gamma interferon release by CD4+ and CD8+ T-cells [Units/volume] corrected for background in BloodMercy Health St. Rita'S Medical CenterMycobacterium tuberculosis tuberculin stimulated gamma interferon [Presence] in BloodMercy Health St. Rita'S Medical CenterPatient referralOhiohealth Doctors Hospital Work Phone: [facility] Payers DatePayer CategoryPayerPolicy [id number] Health [place] [id number] [id number] [id number] 2.16.840.1.667729.3.579.2.784848-22-9533Cogb-[id number] [id number] 2.16.840.1.7[id number] 2.16840.1.9[id number]-87pb-[id number] 2.16.840.1.3[id number] 2.16840.1.865223.3.579.2.531 Social History DateTypeDetailFacilityTobacco smoking status NHISUnknown if ever smokedOhiohealth Doctors Hospital Work Phone: Start: [id number] [facility] Hospitaltart: 03-27-2023 End: 33-00-7471Sndmrca smoking status NHISNever smoked tobacco (finding) [facility] Cent[facility]art: 42-15-1407Hecrirb use and exposure Smokeless tobacco non-userNOMS HealthcareStart: 19-99-0924Uxmgwvjjz beverage intakeLifetime non-drinker (finding)[facility]S HealthcareStart: 03-26-2023 End: 37-37-7996Tpjkwze of Social functionNOME HealthcareStart: 03-26-2023 End: 96-22-0509Qglqhlfcwwq, Afraid, Rape, and Kick questionnaire [HARK]NOMS HealthcareWithin the last year, have you been afraid of your partner or ex-partner?NoNOMS HealthcareAre you now , , , , never or living with a partner?MarriedNOMS HealthcareHow often to you have a drink containing alcohol?Monthly or lessNOMS HealthcareHow many standard drinks containing alcohol do you have on a typical day?1 or 2NOMS HealthcareHow often do you have 6 or more drinks on 1 occasion?NeverSt. Louis Behavioral Medicine InstituteStart: 69-49-8483Cwh hard is it for you to pay for the very basics like food, housing, medical care, and heatingNot hard at VA hospitalDo you feel stress - tense, restless, nervous, or anxious, or unable to sleep at night because your mind is troubled all the time - these days [OSQ]Not at VA hospital(I/We) worried whether (my/our) food would run out before (I/we) got money to buy more. Never trueSt. Louis Behavioral Medicine InstituteStart: 40-42-0597Plx assigned at birthNot on Dr. [facility] HospitalSexMale (finding)[facility] Evaluation note 02-09-2025 Note Date & NdxuJlipZzyvjmsw18-93-6840 Evaluation note* Diagnosis Onset Date Resolution Status Admit Date Arthritis of right knee acuteOct2024 9:26amBMI 45.0-49.9, adultacuteOct2024 9:26am Class 3 severe obesity with body mass index (BMI) of 45.0 to 49.9 in adultacute October 2024 9:26amPrimary osteoarthritis of left kneeacuteOct2024 9:26amPrimary osteoarthritis of right hipacuteOct2024 9:26am PsoriasisacuteOctober 2024 9:39am [facility] Work Phone: Evaluation note 02-09-2025 Note Date & NwaeIjqbTnbtbmiz39-80-7777 Evaluation note* Diagnosis Onset Date Resolution Status Admit Date Arthritis of right knee acuteOctober 2024 9:26amBMI 45.0-49.9, adultacuteOctober 2024 9:26am Class 3 severe obesity with body mass index (BMI) of 45.0 to 49.9 in adultacute February 09, 2025 9:26amPrimary osteoarthritis of left kneeacuteOctober 2024 9:26amPrimary osteoarthritis of right hipacuteOctober 2024 9:26amHigh risk medication useacuteOctober 2024 9:39amPsoriasisacuteOctober 2024 9:39amPsoriatic arthritisacuteOctober 2024 9:39amRight anterior knee painacuteOctober 2024 9:39am [facility] Work Phone: Evaluation note 11-12-2024 Note Date & XfwvPtjnVinkwuou34-77-5533 Evaluation note* Diagnosis Onset Date Resolution Status Admit Date Arthritis of right knee acuteJuly 2024 9:18amBMI 45.0-49.9, adultacuteJuly 2024 9:18amClass 3 severe obesity with body mass index (BMI) of 45.0 to 49.9 in adultacuteJuly 2024 9:18amPrimary osteoarthritis of right hipacuteJuly 2024 9:18am [facility] Work Phone: Evaluation note 11-12-2024 Note Date & WoakGsumBtwcbeze43-16-4543 Evaluation note* Diagnosis Onset Date Resolution Status Admit Date Arthritis of right knee acuteJuly 2024 9:18amBMI 45.0-49.9, adultacuteJuly 2024 9:18amClass 3 severe obesity with body mass index (BMI) of 45.0 to 49.9 in adultacuteJuly 2024 9:18amPrimary osteoarthritis of right hipacuteJuly 2024 9:18am Arthritis of right kneeacuteOctober 2024 9:26amBMI 45.0-49.9, adultacute February 09, 2025 9:26amClass 3 severe obesity with body mass index (BMI) of 45.0 to 49.9 in adultacuteOctober 2024 9:26amPrimary osteoarthritis of left kneeacuteOct2024 9:26amPrimary osteoarthritis of right hipacute October 2024 9:26am [facility] Work Phone: Evaluation note Note Date & TypeNoteFacilityEvaluation noteNo assessment information available [facility] Work Phone: Evaluation note Note Date & TypeNoteFacilityEvaluation note* Diagnosis Onset Date Resolution Status Admit Date Arthritis of right knee acuteJuly 2024 9:18amBMI 45.0-49.9, adultacuteJuly 2024 9:18amClass 3 severe obesity with body mass index (BMI) of 45.0 to 49.9 in adultacuteJuly 2024 9:18amPrimary osteoarthritis of right hipacuteJuly 2024 9:18am [facility] Work Phone: Hospital Discharge instructions Note Date & TypeNoteFacilityHospital Discharge instructionsAmbulatory Orders* Referral to Rheumatology Time Frame: 02/09/25, Location: None Selected [facility] Work Phone: Reason for referral (narrative) Note Date & TypeNoteFacilityReason for referral (narrative)No reason for referral information availableOhiohealth Doctors Hospital Work Phone: Summary Purpose Family History Relationship Condition Age at Onset Recorded Date/T radha mother Rheumatoid arthritis Unknown Advance Directives Advance Directive Response Recorded Date/ Time Advance Directives No February 26, 2024 12:30pm Advance Directive Response Recorded Date/ Time Advance Directives No February 28, 2024 5:08pm Advance Directive Response Recorded Date/ Time Advance Directives No November 12 12:38pm Chief Complaint and Reason for Visit Chief Complaint poss cyst/infected p imple on back Chief Complaint poss cyst/infected p imple on back Infected hair on back Chief Complaint Admit Date ER [facility] RT KNEE PAIN WX November 12, 2024 9 :18am M17.11 - Unilateral primary osteoarthrit is, right November 12, 2024 10:02am Reason for Visit Admit Date Arthritis of right knee November 12, 2024 9:18am BMI 45.0-49.9, adult November 12, 2024 9:1 8am Class 3 severe obesity with body mass index (BMI) of 45.0 to 49.9 in adult November 12, 2024 9:18am Primary osteoarthritis of right hip November 12, 2024 9:18am Chief Complaint Admit Date ER TBH RT KNEE PAIN WX November 12, 2024 9 :18am M17.11 - Unilateral primary osteoarthrit is, right November 12, 2024 10:02am TBH OP SP RT KNEE PAIN February 09 9:26am Reason for Visit Admit Date Arthritis of right knee November 12, 2024 9:18am BMI 45.0-49.9, adult November 12, 2024 9:1 8am Class 3 severe obesity with body mass index (BMI) of 45.0 to 49.9 in adult November 12, 2024 9:18am Primary osteoarthritis of right hip November 12, 2024 9:18am Arthritis of right knee February 09 9:26am BMI 45.0-49.9, adult February 09, 2025 9:26am Class 3 severe obesity with body mass index (BMI) of 45.0 to 49.9 in adult February 09, 2025 9:26am Primary osteoarthritis of left knee Jano 2024 9:26am Primary osteoarthritis of right hip Jano 2024 9:26am Chief Complaint Admit Date TBH OP SP RT KNEE PAIN February 09 9:26am REF DR WALKER PSORIASIS February 13 9:39am Reason for Visit Admit Date Arthritis of right knee February 09 9:26am BMI 45.0-49.9, adult February 09, 2025 9:26am Class 3 severe obesity with body mass index (BMI) of 45.0 to 49.9 in adult February 09, 2025 9:26am Primary osteoarthritis of left knee Jano 2024 9:26am Primary osteoarthritis of right hip Jano 2024 9:26am Psoriasis February 13, 2025 9 :39am Chief Complaint Admit Date TBH OP SP RT KNEE PAIN February 09 9:26am REF DR WALKER PSORIASIS February 13 9:39am l40.9 l40.50 z79.899 February 13, 2025 10:36am Reason for Visit Admit Date Arthritis of right knee February 09 9:26am BMI 45.0-49.9, adult February 09, 2025 9:26am Class 3 severe obesity with body mass index (BMI) of 45.0 to 49.9 in adult February 09, 2025 9:26am Primary osteoarthritis of left knee Jano 2024 9:26am Primary osteoarthritis of right hip Jano 2024 9:26am High risk medication use February 13 9:39am Psoriasis February 13, 2025 9 :39am Psoriatic arthritis February 13, 2025 9 :39am Right anterior knee pain February 13 9:39am Additional Source Comments (unrecognized sect ion and content) No Status Records FoundNo Status Records FoundNo Status Records Found INFORMATION SOURCE (unrecogn ized section and content) DATE CREATED AUTHOR 10/26/2020 [facility] DATE CREATED AUTHOR AUTHOR'S ORGANIZ ATION 03/29/2023 [facility] DATE CREATED AUTHOR AUTHOR'S ORGANIZ ATION 02/22/2025 [facility] Care Teams (unrecognized sec tion and content) Team Status: Active Member Role Status Dates NON STAFF Primary Care Provider Active Team Status: Inactive Member Role Status Dates Ines Patricio APRN Attending Provider Active Start: February 26, 2024 End: February 26, 2024NON STAFFPrimary Care ProviderActiveStart: February 26, 2024 End: February 26, 2024 Team Status: Inactive Member Role Status Dates NON STAFF Primary Care Provider Active Start: February 28, 2024 End: February 28, 2024Clau Culp ProviderActiveStart: February 28, 2024 End: February 28, 2024Team MemberRelationshipSpecialtyStart DateEnd Date Orville Silva MD [facility]01/28/23 Team Status: Inactive Member Role Status Dates NON STAFF Primary Care Provider Active Start: November 12, 2024 End: November 12, 2024Justgermain Walker DOAttending ProviderActiveStart: November 12, 2024 End: November 12, 2024 Team Status: Active Member Role Status Dates NON STAFF Primary Care Provider Active Start: November 12, 2024 Buck Walker DOAttending ProviderActiveStart: November 12, 2024 Team Status: Active Member Role Status Dates Orville Silva MD Primary Care Provider Active Team Status: Inactive Member Role Status Dates Buck Wakler DO Attending Provider Active S tart: February 09, 2025 End: February 09, 2025MarCoy Keyes Care ProviderActiveStart: February 09, 2025 End: February 09, 2025 Team Status: Active Member Role/Relationship Status Dates Orville Silva MD Primary Care Provider Active Team Status: Inactive Member Role/Relationship Status Dates Buck Walker DO Attending Provider Active S tart: February 09, 2025 End: February 09, 2025MarGUY Keyesrijerrell Care ProviderActiveStart: February 09, 2025 End: February 09, 2025 Team Status: Inactive Member Role/Relationship Status Dates Orville Silva MD Primary Care Provider Active S tart: February 13, 2025 End: February 13assam Ilan , MDAttending ProviderActiveStart: February 13, 2025 End: February 13, 2025 Team Status: Inactive Member Role/Relationship Status Dates Orville Silva MD Primary Care Provider Active S tart: February 13, 2025 End: February 13asem Talavera , MDAttending ProviderActiveStart: February 13, 2025 End: February 13, 2025Team MemberRelationshipSpecialtyStart DateEnd Date Orville Silva MD [facility]01/28/23Team MemberRelationshipSpecialtyStart DateEnd Date Orville Silva MD PCP - GeneralFamily Whfgzzad49/1/23 Goals (unrecognized section and content) Goals may be documented in a n alternate sectionGoals may be documented in an alternate sectionGoals may be documented in an alternate sectionGoals may be documented in an alternate sectionGoals may be documented in an alternate sectionGoals may be documented in an alternate sectionGoals may be documented in an [...] BE BASED ON THE PRIMARY CLINICAL RECORDS. [facility] [employer]. provides no warranty or guarantee of the accuracy or completeness of information in this document.
--- OUTSIDE RECORDS SUMMARY | 2025-03-20 07:34 | XMS_ITS | Clinical Summary ---
Author Organization [facility] [employer] [facility] Address [id number] [place] [address] Care Team Providers Care Dental Sales Representative Name Role Phone Marcie Beckham MD Primary Care Provider [phone] Allergies No known active allergies Medications MedicationSigDispense QuantityRefillsLast FilledStart DateEnd DateStatus lisinopril-hydrochlorothiazide (PRINZIDE,ZESTORETIC) 10-12.5 mg per tablet Take 1 tablet by mouth daily.Active aspirin 81 mg Take 81 mg by mouth daily.Active Active Problems ProblemNoted DateDiagnosed DateMorbid obesity with BMI of 45.0-49.9, adult 12/20/2016Essential laaqqmseknfk54/23/2017 Family History Medical HistoryRelationNameCommentsCancerFatherHypertensionFatherProstate cancer FatherArthritisMotherHypertensionMotherRelationNameStatusCommentsFatherAlive MotherAlive Social History Tobacco UseTypesPacks/DayYears UsedDateSmoking Tobacco: NeverAlcohol UseStandard Drinks/WeekCommentsNo0 (1 standard drink = 0.6 oz pure alcohol)ChildcareAnswer Date XkbyemekDzqflrrdsVpzsiec71/13/2019EmploymentAnswerDate RecordedEmployment Wrigjmq8110/10/2018Purpose - LifeAnswerDate RecordedPurpose and direction in life Tykplxu96/11/2021Sex and Gender InformationValueDate RecordedSex Assigned at BirthNot on fileLegal WwxJvdf7112/18/2016 3:41 PM EDTGender IdentityNot on file Sexual OrientationNot on file Last Filed Vital Signs Vital SignReadingTime TakenCommentsBlood Idpmtajd333/90012/27/2016 3:48 PM EDT Pulse--Temperature--Respiratory Rate--Oxygen Saturation--Inhaled Oxygen Concentration--Ybtabj851 kg (324 lb)12/27/2016 3:48 PM DTSCvfaql287.8 cm (5' 10 )12/27/2016 3:48 PM EDTBody Mass Index46.49012/27/2016 3:48 PM EDT Plan of Treatment Health MaintenanceDue DateLast DoneCommentsDepression Mtjgjstoa09/29/1993Tobacco Vrujzjdoc82/29/1993Adult BMI Smpzjchlx52/29/1999DTaP,Tdap and Td Vaccines (1 - Tdap)12/27/1999Influenza Lbeslmo6112/29/2024 Medical Devices Not on file Insurance Care Teams Team MemberRelationshipSpecialtyStart DateEnd Marcie Beckham MD PCP - GeneralFamily Medicine12/18/16
--- OUTSIDE RECORDS SUMMARY | 2025-03-20 07:34 | XMS_ITS | Clinical Summary ---
Author Organization [facility] Address [address] [place] [address] Care Team Providers Care Raw Products Director Name Role Phone Orville Asher MD Primary Care Provider [phone] Allergies No known active allergies Medications MedicationSigDispense QuantityRefillsLast FilledStart DateEnd DateStatus lisinopril-hydroCHLOROthiazide 20-25 MG tablet Indications:Essential hypertension, benignTAKE 1 TABLET BY MOUTH DAILY 90 tablet 4Active Active Problems ProblemNoted DateDiagnosed DateEssential hypertension, ygwvem4903/27/2023 Assessment & Plan (03/27/2023 3:03 PM EST): BP improved and monitor PRN. Discussed DASH diet. Gout, hvickseeris79/28/0528Dlaaxwjqt52/28/2023alcaneal spur of both feet 03/27/2023 Assessment & Plan (03/27/2023 3:04 PM EST): Recently with increased pain and treat with prednisone. If no improvement return to podiatry. BASILIO (obstructive sleep apnea)03/27/2023 Assessment & Plan (03/27/2023 3:05 PM EST): Continued symptoms and will need titration study. New insurance in April and will order test then. Morbid obesity with BMI of 45.0-49.9, adult12/20/2016 Family History Medical HistoryRelationNameCommentsHypertensionBrotherHypertensionFather HypertensionMotherHypertensionSisterRelationNameStatusCommentsBrotherFather MotherSister Social History Tobacco UseTypesPacks/DayYears UsedDateSmoking Tobacco: NeverSmokeless Tobacco: Never Tobacco Cessation:Counseling Given: Not Answered Alcohol UseStandard Drinks/WeekCommentsNever0 (1 standard drink = 0.6 oz pure alcohol)Humiliation, Afraid, Rape, and Kick questionnaireAnswerDate Recorded Within the last year, have you been afraid of your partner or ex-partner?No 03/26/2023Within the last year, have you been humiliated or emotionally abused in other ways by your partner or ex-partner?No03/26/2023Within the last year, have you been kicked, hit, slapped, or otherwise physically hurt by your partner or ex-partner?No03/26/2023Within the last year, have you been raped or forced to have any kind of sexual activity by your partner or ex-partner?No03/26/2023 Social Connection and Isolation PanelAnswerDate RecordedIn a typical week, how many times do you talk on the phone with family, friends, or neighbors?More than three times a week03/26/2023How often do you get together with friends or relatives?Once a week03/26/2023How often do you attend episcopalian or taoist services?1 to 4 times per year03/26/2023o you belong to any clubs or organizations such as episcopalian groups, unions, fraternal or athletic groups, or school groups?No03/26/2023How often do you attend meetings of the clubs or organizations you belong to?Never03/26/2023re you , , , , never , or living with a partner?Kychrwp8403/26/2023UDIT-C AnswerDate RecordedQ1: How often do you have a drink containing alcohol?Monthly or less03/26/2023Q2: How many drinks containing alcohol do you have on a typical day when you are drinking?1 or Q3: How often do you have six or more drinks on one occasion?Never03/26/2023Overall Financial Resource Strain (CARDIA) AnswerDate RecordedHow hard is it for you to pay for the very basics like food, housing, medical care, and heating?Not hard at all03/26/2023Finuintah [facility] center [place] of Occupational Health - Occupational Stress QuestionnaireAnswerDate RecordedDo you feel stress - tense, restless, nervous, or anxious, or unable to sleep at night because yourmind is troubled all the time - these days?Not at all03/26/2023 Exercise Vital SignAnswerDate RecordedOn average, how many days per week do you engage in moderate to strenuous exercise (like a brisk walk)?0 days03/26/2023On average, how many minutes do you engage in exercise at this level?0 min 03/26/2023Hunger Vital SignAnswerDate RecordedWithin the past 12 months, you worried that your food would run out before you got the money to buymore.Never true03/26/2023Within the past 12 months, the food you bought just didn't last and you didn't have money to get more.Never true03/26/2023RAPARE - TransportationAnswerDate RecordedIn the past 12 months, has lack of transportation kept you from medical appointments or from getting medications?No 03/26/2023In the past 12 months, has lack of transportation kept you from meetings, work, or from getting things needed for daily living?No03/26/2023 Housing Stability Vital SignAnswerDate RecordedIn the last 12 months, was there a time when you were not able to pay the mortgage or rent on time?No03/26/2023In the last 12 months, how many places have you lived?In the last 12 months, was there a time when you did not have a steady place to sleep or slept in [place] (including now)?No03/26/2023Sex and Gender InformationValueDate RecordedSex Assigned at BirthNot on fileLegal UkjBwit2707/12/2022 8:03 PM EDT Gender IdentityNot on fileSexual OrientationNot on file Last Filed Vital Signs Vital SignReadingTime TakenCommentsBlood Ylcokyws590/9003/27/2023 2:31 PM EST Wrojx801103/27/2023 2:31 PM BXKDlpxjhjdegx35.3 ??C (95.5 ??F)03/27/2023 2:31 PM ESTRespiratory Rate--Oxygen Bvhgmmjtyj15%03/27/2023 2:31 PM ESTInhaled Oxygen Concentration--Znpfzq618 kg (347 lb)03/27/2023 2:31 PM YZPDotbrs577.8 cm (5' 10 )03/27/2023 2:31 PM ESTBody Mass Index49.7903/27/2023 2:31 PM EST Plan of Treatment Not on file Insurance Care Teams Team MemberRelationshipSpecialtyStart DateEnd Date Orville Asher MD PCP - GeneralFamily Pqbezvmr10/1/23
--- OUTSIDE RECORDS SUMMARY | 2025-03-20 07:34 | XMS_ITS | Patient Health Record ---
Author Organization [facility] [place] Address [address] [place] [address] Care Team Providers Care Truck Jumper Name Role Phone Orville Asher MD Primary Care Provider UnavailSebastián Smith Unavailable [phone] Allergies No Known Allergies Results Component Value Reference Range Notes XR ankle RT min 3V (Not yet reviewed by provider) Interpretation: Performing Lab: Notes/Report: Source Facility: [place] [address] XRay Report Signed Patient: TEE MCKEON MR#: [id number] : 1980 Acct:[id number] Age/Sex: 43 / M ADM Date: 05/20/24 Loc: RAD Attending Dr: Sebastián Baldwin D.P.M. Ordering Physician: Sebastián Baldwin D.P.M. Date of Service: 05/20/24 Procedure(s): XR ankle RT min 3V Accession Number(s): [id number] cc: Sebastián Baldwin D.P.M.; Orville Asher M.D. [facility] [place] [address] Patient Name: TEE MCKEON MRN: [id number] date: 1980 Sex: M Assigned Patient Location: RAD Current Patient Location: RAD Accession/Order Number: [id number] Exam Date: 05/20/2024 07:45 Report Date: 05/20/2024 [...] Signed By: 05/20/24 1253 DD/ 1250 TD/TT: Vest Finisher: Reason For Referral Reason Referral to [facility] PT Diagnosis 1 Nondisplaced avulsio n fracture of tuberosity of right calcaneus, initial encounter for closed fracture (S92.034A) Referral Organization [facility] (PODIATRY) Referring Provider First Name Sebastián Referring Provider Last Name Nicolasa Referring Provider Speciality Podiatry Referred Provider Specialty Physical The rapist Referral Priority Routine Medications Medication SIG (Take, Route, Frequency, Duration) Notes Start Date End Date Status Meloxicam 15 MG 1 tablet Orally Once a day; Dura tion: 30 days 5ActiveAspirin 81 81 MG1 tablet Orally Once a day10/25/2023ctive Zonisamide 50 MGas directed Quyusr6310/25/2023ctiveLisinopril-hydroCHLOROthiazide 20-25 MG1 tablet Orally Once a day10/25/2023ctive Social History Tobacco Use: Social History Observation Description Date Details (start date - stop date) Never Smoker NA - NA Tobacco Control (Standard) Question Answer Notes Tobacco use: Nonsmoker Problems Problem Type SNOMED Code ICD Code Onset Dates Problem Status W/U Status Risk Notes Problem 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) (163202567652618) Contracture, right ankle (M24.571) ActiveconfirmedProblemContracture of joint of left ankle (disorder) (175496566554573)Contracture, left ankle (M24.572)ActiveconfirmedProblemPain in right foot (265256337675796)Right foot pain (M79.671)ActiveconfirmedProblem Arthralgia of the ankle and/or foot (353076146)Right ankle pain (M25.571)Active confirmedProblemPain in left foot (575214283606429)Left foot pain (M79.672) Activeconfirmed Vital Signs Heart Rate 87 /min 06/03/2024 Xebvvblviof81.2 degrees Ilkkrsebfc68/04/2062Olxygxvf47 %06/03/20244445Wwnvpk58 in 06/03/20240063Yvciiu203 lbs05/20/2024BMI45.91 kg/m205/20/2024 Encounters Encounter Location Date Provider Diagnosis [facility] (PODIATRY) [address] [place] [address] [place] [address] 05/20/2024 Sebastián Baldwin Right ankle pain M25.571 and Nondisplaced avulsion fracture of tuberosity of right calcaneus, initial encounter for closed fracture S92.034A [facility] (PODIATRY) [address] [place] [address] [place] [address] 06/03/2024 Sebastián Millertameka Nondisplaced avulsion fracture of tuberosity of right calcaneus, initial encounter for closed fracture S92.034A [facility] (PODIATRY) [address] [place] [address] [place] [address] 06/03/2024 Sebastián Baldwin Assessments Encounter Date Diagnosis (ICD Code) Assessment Notes Treatment Notes Treatment Clinical Notes Section Notes 05/20/2024 Right ankle pain (ICD-10 - M25.5 71) 05/20/2024Nondisplaced avulsion fracture of tuberosity of right calcaneus, initial encounter for closed fracture (ICD-10 - S92.034A)Patient presents for new problem following a slip and fall last week. X-rays and examination are con cerning for an avulsion fracture off the lateral wall of the calcaneus. 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 He was placed into a cam boot and may weight-bear as tolerated. I recommended RICE therapy and Tylenol/ibuprofen as needed. No new x-rays needed at follow-up06/03/2024 Nondisplaced avulsion fracture of tuberosity of right calcaneus, initial encounter for closed fracture (ICD-10 - S92.034A)Patient follows up for anterior process fracture of the calcaneus. Although pain has substantially improved he has not yet subjectively stable and definitely not pain-free. I extended his time off ofwork until 06/24/2024. I did demonstrate strengthening and [...] Coverage End Date [employer] [address] [address] [place] [address] [id number] Tee Mckeon Self - patient is the insured Medical (General) History Medical History History ICD Code hypertension
[2025-03-20 07:53] LABS: Hematocrit 45.5 % (42.0-54.0); Hemoglobin 15.4 g/dL (14.0-18.0); Immature Granulocytes Abs Auto 0.02 10^3/uL (0.00-0.03); Immature Granulocytes Pct Auto 0.3 % (0.0-0.5); Lymphocytes Absolute Auto 2.6 10^3/uL (1.2-3.8); Mean Corpuscular HGB Conc 33.8 g/dL (29.9-35.2); Mean Corpuscular Hemoglobin 30.6 pg (25.9-34.0); Mean Corpuscular Volume 90.5 fL (80.0-94.0); Platelet Count 227 10^3/uL (150-450); Red Blood Count 5.03 10^6/uL (4.70-6.10); White Blood Count 7.9 10^3/uL (4.0-11.0)
[2025-03-20 08:19] LABS: Chloride 105 mmol/L (98-107); Potassium 3.9 mmol/L (3.5-5.1); Sodium 142 mmol/L (136-145)
[2025-03-20 08:20] LABS: Anion Gap 9.6; Carbon Dioxide 31.3 mmol/L (21.0-32.0)
[2025-03-20 08:21] LABS: Alanine Aminotransferase 52 U/L (16-63); Aspartate Amino Transferase 19 U/L (15-37); Blood Urea Nitrogen 23.0 mg/dL (7.0-18.0); Calcium 9.1 mg/dL (8.5-10.1); Estimated GFR (African America >60 (>=60 mL/min/1.73m^2); Estimated GFR (Non-African Ame >60 (>=60 mL/min/1.73m^2); Glucose 105 mg/dL (74-106)
[2025-03-20 08:22] LABS: Albumin Globulin Ratio 1.0; Albumin Level 3.6 g/dL (3.4-5.0); Alkaline Phosphatase 76 U/L (46-116); Cholesterol 182 mg/dL (<=200); Globulin 3.5 g/dL; HDL Cholesterol 55 mg/dL (40-60); Thyroid Stimulating Hormone 2.121 uIU/mL (0.358-3.740); Total Protein 7.1 g/dL (6.4-8.2); Triglycerides 72 mg/dL (<=150); VLDL CHOLESTEROL 14.4 mg/dL
== END 2025-03-20 07:31 | disposition home or self-care (01) ==
LOC: LAB 07:31
PROVIDERS: PCP Family Medicine; Visit Provider Family Medicine
DX: Z00.00 Encounter for general adult medical examination without abnormal findings (principal); Z12.5 Encounter for screening for malignant neoplasm of prostate
CPT/HCPCS: 36415; 80053; 80061; 83036; 84443; 85025; G0103

== ENCOUNTER 2025-04-29 09:19 | Outpatient (OUT) | payer BC, SELFPAY ==
--- OUTSIDE RECORDS SUMMARY | 2025-04-29 09:21 | XMS_ITS | Patient Health Record ---
Author Organization [facility] [place] Address [address] [place] [address] Care Team Providers Care Elevator Erector Name Role Phone Orville Asher MD Primary Care Provider UnavailSebastián Smith Unavailable [phone] Allergies No Known Allergies Results Component Value Reference Range Notes XR ankle RT min 3V (Not yet reviewed by provider) Interpretation: Performing Lab: Notes/Report: Source Facility: [place] [address] XRay Report Signed Patient: TEE MCKEON MR#: [id number] : 1980 Acct:[id number] Age/Sex: 43 / M ADM Date: 05/20/24 Loc: RAD Attending Dr: Sebastián Baldwin D.P.M. Ordering Physician: Sebastián Baldwin D.P.M. Date of Service: 05/20/24 Procedure(s): XR ankle RT min 3V Accession Number(s): [id number] cc: Sebastián Baldwin D.P.M.; Orville Asher M.D. [facility] [place] [address] Patient Name: TEE MCKEON MRN: [id number] date: 1980 Sex: M Assigned Patient Location: RAD Current Patient Location: RAD Accession/Order Number: [id number] Exam Date: 05/20/2024 07:45 Report Date: 05/20/2024 [...] Signed By: 05/20/24 1253 DD/ 1250 TD/TT: Steam Fitter: Reason For Referral Reason Referral to [facility] PT Diagnosis 1 Nondisplaced avulsio n fracture of tuberosity of right calcaneus, initial encounter for closed fracture (S92.034A) Referral Organization [facility] [place] (PODIATRY) Referring Provider First Name Sebastián Referring Provider Last Name Nicolasa Referring Provider Speciality Podiatry Referred Provider Specialty Physical The rapist Referral Priority Routine Medications Medication SIG (Take, Route, Frequency, Duration) Notes Start Date End Date Status Meloxicam 15 MG 1 tablet Orally Once a day; Dura tion: 30 days 5ActiveAspirin 81 81 MG1 tablet Orally Once a day10/25/2023ctive Zonisamide 50 MGas directed Igftff6410/25/2023ctiveLisinopril-hydroCHLOROthiazide 20-25 MG1 tablet Orally Once a day10/25/2023ctive Social History Tobacco Use: Social History Observation Description Date Details (start date - stop date) Never Smoker NA - NA Tobacco Control (Standard) Question Answer Notes Tobacco use: Nonsmoker Problems Problem Type SNOMED Code ICD Code Onset Dates Problem Status W/U Status Risk Notes Problem 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) (457449277063102) Contracture, right ankle (M24.571) ActiveconfirmedProblemContracture of joint of left ankle (disorder) (680308012876893)Contracture, left ankle (M24.572)ActiveconfirmedProblemPain in right foot (405664711810181)Right foot pain (M79.671)ActiveconfirmedProblem Arthralgia of the ankle and/or foot (986255665)Right ankle pain (M25.571)Active confirmedProblemPain in left foot (015155811242459)Left foot pain (M79.672) Activeconfirmed Vital Signs Heart Rate 87 /min 06/03/2024 Zzptekrbhlo37.2 degrees Efnfnwidta48/04/1906Mpcofnpj44 %06/03/20245989Engcak96 in 06/03/20241838Trppgs148 lbs05/20/2024BMI45.91 kg/m205/20/2024 Encounters Encounter Location Date Provider Diagnosis [facility] ([facility]AT[facility]) [address] [place] [address] [place] [address] 05/20/2024 Sebastián Baldwin Right ankle pain M25.571 and Nondisplaced avulsion fracture of tuberosity of right calcaneus, initial encounter for closed fracture S92.034A [facility] (PODIATRY) [address] [place] [address] [place] [address] 06/03/2024 Sebastián Millertameka Nondisplaced avulsion fracture of tuberosity of right calcaneus, initial encounter for closed fracture S92.034A [facility] (PODIATRY) [address] [place] [address] [place] [address] 06/03/2024 Sebastián Baldwin Assessments Encounter Date Diagnosis [...] Coverage End Date [employer] [address] [address] [place] [address] [id number] Tee Mckeon Self - patient is the insured Medical (General) History Medical History History ICD Code hypertension
--- OUTSIDE RECORDS SUMMARY | 2025-04-29 09:21 | XMS_ITS | Clinical Summary ---
Author Organization [employer] tem Address [id number] [address] [place] [address] Care Team Providers Care General Operations Agent Name Role Phone Marcie Beckham MD Primary Care Provider [phone] Allergies No known active allergies Medications MedicationSigDispense QuantityRefillsLast FilledStart DateEnd DateStatus lisinopril-hydrochlorothiazide (PRINZIDE,ZESTORETIC) 10-12.5 mg per tablet Take 1 tablet by mouth daily.Active aspirin 81 mg Take 81 mg by mouth daily.Active Active Problems ProblemNoted DateDiagnosed DateMorbid obesity with BMI of 45.0-49.9, adult 12/20/2016Essential febotjbaghrb25/23/2017 Family History Medical HistoryRelationNameCommentsCancerFatherHypertensionFatherProstate cancer FatherArthritisMotherHypertensionMotherRelationNameStatusCommentsFatherAlive MotherAlive Social History Tobacco UseTypesPacks/DayYears UsedDateSmoking Tobacco: NeverAlcohol UseStandard Drinks/WeekCommentsNo0 (1 standard drink = 0.6 oz pure alcohol)ChildcareAnswer Date KvohgeqmJcuhwbqmkWmtubpn03/13/2019EmploymentAnswerDate RecordedEmployment Wjhazks9910/10/2018Purpose - LifeAnswerDate RecordedPurpose and direction in life Ggsqfst60/11/2021Sex and Gender InformationValueDate RecordedSex Assigned at BirthNot on fileLegal KnqTpbs4612/18/2016 3:41 PM EDTGender IdentityNot on file Sexual OrientationNot on file Last Filed Vital Signs Vital SignReadingTime TakenCommentsBlood Vtcxcpyn897/90012/27/2016 3:48 PM EDT Pulse--Temperature--Respiratory Rate--Oxygen Saturation--Inhaled Oxygen Concentration--Zcqcxo016 kg (324 lb)12/27/2016 3:48 PM RJFXtirex014.8 cm (5' 10 )12/27/2016 3:48 PM EDTBody Mass Index46.49012/27/2016 3:48 PM EDT Plan of Treatment Health MaintenanceDue DateLast DoneCommentsDepression Jqqvpkoui88/29/1993Tobacco Uodglfhnq17/29/1993Adult BMI Zlggqmqrk60/29/1999DTaP,Tdap and Td Vaccines (1 - Tdap)12/27/1999Influenza Kvthcyx0212/29/2024 Medical Devices Not on file Insurance Care Teams Team MemberRelationshipSpecialtyStart DateEnd Marcie Beckham MD PCP - GeneralFamily Medicine12/18/16
--- OUTSIDE RECORDS SUMMARY | 2025-04-29 09:21 | XMS_ITS | Clinical Summary ---
Author Organization [facility] Address [address] [place] [address] Care Team Providers Care Train Caller Name Role Phone Orville Asher MD Primary Care Provider [phone] Allergies No known active allergies Medications MedicationSigDispense QuantityRefillsLast FilledStart DateEnd DateStatus lisinopril-hydroCHLOROthiazide 20-25 MG tablet Indications:Essential hypertension, benignTAKE 1 TABLET BY MOUTH DAILY 90 tablet 4Active Active Problems ProblemNoted DateDiagnosed DateEssential hypertension, xsbpdb8903/27/2023 Assessment & Plan (03/27/2023 3:03 PM EST): BP improved and monitor PRN. Discussed DASH diet. Gout, tbhqfqiuoxj50/28/0185Ucusqcdnm59/28/2023alcaneal spur of both feet 03/27/2023 Assessment & [...] relatives?Once a week03/26/2023How often do you attend lutheran or yarsanism services?1 to 4 times per year03/26/2023o you belong to any clubs or organizations such as lutheran groups, unions, fraternal or athletic groups, or school groups?No03/26/2023How often do you attend meetings of the clubs or organizations you belong to?Never03/26/2023re you , , , , never , or living with a partner?Zkbwdnd2003/26/2023UDIT-C AnswerDate RecordedQ1: How often do you have [...] housing, medical care, and heating?Not hard at all03/26/2023[facility] [place] [facility] - Occupational Stress QuestionnaireAnswerDate [...] steady place to sleep or slept in norvellelter (including now)?No03/26/2023Sex and Gender InformationValueDate RecordedSex Assigned at BirthNot on fileLegal GazEpin8707/12/2022 8:03 PM EDT Gender IdentityNot on fileSexual OrientationNot on file Last Filed Vital Signs Vital SignReadingTime TakenCommentsBlood Rttuzqir021/9003/27/2023 2:31 PM EST Phakq107903/27/2023 2:31 PM ZWIVnqdldydboi57.3 ??C (95.5 ??F)03/27/2023 2:31 PM ESTRespiratory Rate--Oxygen Tazimrayvy23%03/27/2023 2:31 PM ESTInhaled Oxygen Concentration--Utgxvm460 kg (347 lb)03/27/2023 2:31 PM SGMSxqwnt514.8 cm (5' 10 )03/27/2023 2:31 PM ESTBody Mass Index49.7903/27/2023 2:31 PM EST Plan of Treatment Not on file Insurance Care Teams Team MemberRelationshipSpecialtyStart DateEnd Date Orville Asher MD PCP - GeneralFamily Pileimll46/1/23
--- OUTSIDE RECORDS SUMMARY | 2025-04-29 09:25 | XMS_ITS | CCD ---
Author Organization [facility] Care Team Providers Care Charge Account Clerk Name Role Phone DR CHANTELL MALAVE Primary [...] Unavailable Orville Silva MD Primary Care Provider NON STAFF Primary Care Provider UnavailBuck Love DO Attending Provider Orville Silva MD Primary Care Provider [phone] Buck Walker DO Attending Provider Ron Talavera MD Attending Provider Unavailable Jet Talavera MD Attending Provider NON STAFF Primary Care Unavailable Buck Walker Attending Unavailable Buck Walker Admitting Unavailable Orville Silva Primary Care Unavailable Jet Talavera Attending Unavailable Jet Talavera Admitting Unavailable Orville Silva MD Primary Care Provider [phone] Medications Current Medications MedicationDrug Class(es)DatesSig (Normalized)Sig (Original)acetaminophen 300 mg / codeine phosphate 30 mg oral tablet (5 sources)Opioid AgonistStart: 61-32-4072spbj 1 tablet by mouth every six hours as neededbaclofen 10 mg oral tablet (6 sources)gamma-Aminobutyric Acid-ergic AgonistStart: 99-28-8213nbld 1 tablet by mouth once daily as neededhydroCHLOROthiazide 25 mg / lisinopril 20 mg oral tablet (8 sources)Thiazide Diuretic, Angiotensin Converting Enzyme InhibitorStart: 93-78-7982cwyg 1 tablet by mouth once dailylisinopril-hydroCHLOROthiazide 20-25 MG tablet Indications: Essential hypertension, benign TAKE 1 TABLET BY MOUTH DAILY 90 tablet 3 04/11/2024 Active Completed/Discontinued Medications MedicationDrug Class(es)DatesSig (Normalized)Sig (Original)doxycycline hyclate 100 mg oral capsule (6 sources)Tetracycline-class DrugStart: 02-28-2024 End: 24-10-8462mtfh 1 capsule by mouth once dailyDoxycycline Hyclate 100 mg capsule Discontinued 100 MG PO Daily February 28, 2024 12:00am November 12, 2024 9:23amzonisamide 50 mg oral capsule (6 sources)Anti-epileptic AgentStart: 02-28-2024 End: 81-14-0079Nskxhhrhra 50 mg capsule Discontinued MG PO February 28, 2024 12:00am February 13, 2025 9:42amStart: 94-53-4375Eygcolavdf Active MG PO February 28, 2024 12:00am Problems Active Problems Problem ClassificationProblemDateDocumented DateEpisodic/ChronicEpilepsy; convulsions (6 sources)Epilepsy; Translations: [Epilepsy, unspecified, not intractable, without status epilepticus]65-41-9432WxtbzgwRumkbyulq hypertension (12 sources)Hypertensive disorder; Translations: [Essential (primary) hypertension]Onset: 999062-81-0255OlpidpcYyia and other crystal arthropathies (6 sources)Gout; Translations: [Gout, unspecified]Onset: 943095-92-2564 ChronicOsteoarthritis (20 sources)Osteoarthritis of right hip joint; Translations: [Unilateral primary osteoarthritis, right hip]Onset: 243544-44-8229VxcnvfgZatpq aftercare (2 sources)Taking high risk medication; Translations: [Other shelter (current) drug therapy]67-11-5001EhvdrajmUtuqu inflammatory condition of skin (13 sources)Psoriasis; Translations: [Psoriasis, unspecified]Onset: 03-27-2023 74-89-7044XcwcutaKivbn inflammatory condition of skin (2 sources)Psoriatic arthritis; Translations: [Arthropathic psoriasis, unspecified]82-10-7023JyqtktxXxeah inflammatory condition of skin (1 source)Arthropathic psoriasis, unspecified; Translations: [Arthropathic psoriasis, unspecified]Onset: 43-26-4399QbssriiCpoym non-traumatic joint disorders (5 sources)Hip pain; Translations: [Pain in right hip]10-86-1425TcwvouaxYdtpc non-traumatic joint disorders (3 sources)Anterior knee pain; Translations: [Pain in right knee]EpisodicOther nutritional; endocrine; and metabolic disorders (17 sources)Body mass index 40+ - severely obese; Translations: [Morbid (severe) obesity due to excess calories]Onset: 279025-04-0462FbnopcaQaoxq nutritional; endocrine; and metabolic disorders (11 sources)Severe obesity; Translations: [Class 3 severe obesity with body mass index (BMI) of 45.0 to 49.9 inadult]13-96-2734TkexvkyUywcv screening for suspected conditions (not mental disorders or infectious disease) (1 source)Encounter for screening for malignant neoplasm of prostate; Translations: [ENC SCREEN MALIG NEOPLASM PROSTATE]Onset: 07-81-3464Vvaguvpn Residual codes; unclassified (6 sources)Obstructive sleep apnea syndrome; Translations: [Obstructive sleep apnea (adult) (pediatric)]Onset: 588820-97-2867GqilekjYsupqpxl codes; unclassified (1 source)FH: Psoriasis; Translations: [Family history of diseases of the skin and subcutaneous tissue]05-87-6577BfestbyyAbxbfssunlpt (5 sources)L40.9 - Psoriasis, unspecifiedUnclassified (2 sources)M25.561 - Pain in right knee Past or Other Problems Problem ClassificationProblemDateDocumented DateEpisodic/ChronicOther connective tissue disease (6 sources)Bilateral bone spur of calcaneum; Translations: [Calcaneal spur, right foot]Onset: 900862-52-7196FgtuoengEyhrc non-traumatic joint disorders (1 source)Pain in right hip; Translations: [Pain in right hip]Onset: 11-12-2024 Episodic Results Test NameValueInterpretationReference RangeFacilityC reactive protein [Mass/volume] in Serum or PlasmaOrdered By: Ron Talavera on 36-64-8318KPV [Mass/Vol]< 0.5 mg/dL0.0-0.5FSelect Medical Specialty Hospital - Boardman, IncC-Reactive Protein on 31-09-3662AJD [Mass/Vol]mg/LNormal0.0-0.5The [facility] Physician GroupComment on above:Result Comment: PERFORMED BY: [place] [address] PATHOLOGIST HAM DOCTOR ALEJANDRO HARO M.D.Performed By: #### CRP, ESR #### [address] #### HEPACUTE, CCP, QUANT TB, RA #### [facility] ,Cyclic Citrulliated Pep Abon 24-48-7497Jroldn Citrulliated Pep Ss3Wpfnkc0-13Rgn [facility] Physician GroupComment on above:Result Comment: Negative <20 Weak positive 20 - 39 Moderate positive 40 - 59 Strong positive >59 Performed at: [facility] [place] [id number] Fire Prevention Officer: Lyle Harp PhD, Phone: [phone] PERFORMED BY: [place] [address] PATHOLOGIST HAM DOCTOR ALEJANDRO HARO M.D.Performed By: #### CRP, ESR #### [address] #### HEPACUTE, CCP, QUANT TB, RA #### [facility] ,Erythrocyte Sedimentation Rateon 35-86-4563MYP (Bld) [Velocity]17 mm/hHigh0-14 The [facility] Physician GroupComment on above:Result Comment: PERFORMED BY: [place] [address] PATHOLOGIST HAM DOCTOR ALEJANDRO HARO M.D.Performed By: #### CRP, ESR #### [place] [address] [place] #### HEPACUTE, CCP, QUANT TB, RA #### [facility] ,Erythrocyte sedimentation rate by Photometric methodOrdered By: Ron Talavera on 46-14-5707XQW Photometric method (Bld) [Velocity]17 mm/hrHigh0-14[facility] HospitalHepatitis Acute Panelon 00-70-7621OElYj ScreenNegative NormalNegativeThe [facility] Physician GroupComment on above:Performed By: #### CRP, ESR #### [place] [address] [place] #### HEPACUTE, CCP, QUANT TB, RA #### [facility] ,Hepatitis A Antibody IgMNegativeNormalNegativeThe [facility] Comment on above:Result Comment: A negative anti-HAV IgM result suggests no recent or current HAV infection.Performed By: #### CRP, ESR #### [address] #### HEPACUTE, CCP, QUANT TB, RA #### [facility] ,Hepatitis B Core Antibody IgMNegativeNormalNegativeThe [facility] Physician GroupComment on above:Performed By: #### CRP, ESR #### [place] [address] [place] #### HEPACUTE, CCP, QUANT TB, RA #### [facility] ,Hepatitis C Virus AntibodyNon-ReactiveNormalNon ReactiveThe [facility] Physician GroupComment on above:Performed By: #### CRP, ESR #### [place] [address] [place] #### HEPACUTE, CCP, QUANT TB, RA #### [facility] ,Interpretation Hepatitis CCommentNormal.The [facility] Physician GroupComment on above:Result Comment: Not infected with HCV unless early or acute infection is suspected (which may be delayed in an immunocompromised individual), or other evidence exists to indicate HCV infection. Performed at: - [facility] [id number] Fire Prevention Officer: Lyle Harp PhD, Phone: [phone] PERFORMED BY: [place] [address] PATHOLOGIST HAM DOCTOR ALEJANDRO HARO M.D.Performed By: #### CRP, ESR #### [place] [address] [place] #### HEPACUTE, CCP, QUANT TB, RA #### [facility] ,QuantiFERON TB Goldon 81-22-7461MJWY CriteriaCommentNormal.The [facility] Physician GroupComment on above:Result Comment: QuantiFERON-TB Gold [...] the test.Performed By: #### CRP, ESR #### [place] [address] [place] #### HEPACUTE, CCP, QUANT TB, RA #### [facility] ,Quant TB Ag Value0.17Normal.The [facility] Physician GroupComment on above: Performed By: #### CRP, ESR #### [place] [address] [place] #### HEPACUTE, CCP, QUANT TB, RA #### [facility] ,Quant TB Gold PlusNegativeNormalNegativeThe [facility] Physician GroupComment on above:Result Comment: No response [...] interferon gamma. Chemiluminescence immunoassay methodology Performed at: [facility] [address] [id number] Fire Prevention Officer: Lyle Harp PhD, Phone: [phone] PERFORMED BY: [place] [address] PATHOLOGIST HAM DOCTOR ALEJANDRO HARO M.D.Performed By: #### CRP, ESR #### [place] [address] [place] #### HEPACUTE, CCP, QUANT TB, RA #### [facility] ,Quant TB2 Ag Value0.19Normal.The [facility] Physician GroupComment on above: Performed By: #### CRP, ESR #### [address] #### HEPACUTE, CCP, QUANT TB, RA #### [facility] ,Quantiferon Nil Value0.01Normal.The [facility] Physician GroupComment on above: Performed By: #### CRP, ESR #### [address] #### HEPACUTE, CCP, QUANT TB, RA #### [facility] ,Quantiferon TB Mitogen>10.00Normal.The [facility] Physician GroupComment on above:Performed By: #### CRP, ESR #### [address] #### HEPACUTE, CCP, QUANT TB, RA #### [facility] ,Rheumatoid Factoron 38-62-8910Ovmloziqat Xibzvu08.9Normal<14.0The [facility] Physician GroupComment on above:Result Comment: Performed at: [facility] [address] [place], [place] [id number] Fire Prevention Officer: Lyle Harp PhD, Phone: [phone] By: #### CRP, ESR #### [place] [address] [place] #### HEPACUTE, CCP, QUANT TB, RA #### [facility] ,X-ray reportOrdered By: Mike Curry on 26-00-3390Fzjoj reportFIRTHE CHRIST [facility] [place] [facility] [address] [place] [address] XRay Report Signed Patient: Tee Mckeon MR#: [id number] : 1980 Acct:[id number] Age/Sex: 43 / M ADM Date: 5 Loc: SOXD Room: [facility] Attending Dr: Buck Walker DO Copies to: Buck Walker DO~ Ordering Provider: Buck Walker DO Date of Service: 11/12/24 XR/XR knee RT 4V*: M17.11 - Unilateral primary osteoarthritis, right knee ([id number]) XR/XR hip RT min 2V(w/wo pelvis)*: M17.11 [...] Curry M.D. 11/12/2024 3:45 PM Dictation Location: [place] [address] Transcribed By: [facility] 11/12/24 1545 Dictated By: Mike Curry DO 11/12/24 1544 Signed By: 11/12/24 1545 [facility] HospitalXR hip RT min 2V(w/wo pelvis)*on 99-82-0630PG hip RT min 2V(w/wo pelvis)*[facility] [place] [facility] [place] [address] XRay Report Signed Patient: Tee Mckeon MR#: [id number] : 1980 Acct:[id number] Age/Sex: 43 / M ADM Date: 11/12/24 Loc: SOXD Room: Type: [facility] CLI Attending Dr: Buck Walker DO Copies to: Buck Walker DO Ordering Provider: Buck Walker DO Date of Service: 11/12/24 XR/XR knee RT 4V*: M17.11 - Unilateral primary osteoarthritis, right knee ([id number]) XR/XR hip RT min 2V(w/wo pelvis)*: M17.11 [...] Curry M.D. 11/12/2024 3:45 PM Dictation Location: [place] [address] Transcribed By: [facility] 11/12/24 1545 Dictated By: Mike Curry DO 11/12/24 1544 Signed By: 11/12/24 1545[facility] Physician GroupMR LUMBAR SPINE WO CONon 17-63-7679[place]faB[place] [address] Magnetic Resonance Report Signed Patient: TEE MCKEON MR#: [id number] : 1980 Acct:[id number] Age/Sex: 43 / M ADM Date: 11/07/24 Loc: MRI Attending Dr: Park Falcon NP Ordering Physician: Park Falcon NP Date of Service: 11/07/24 Procedure(s): MR lumbar spine wo con Accession Number(s): [id number] cc: Park Falcon NP; Orville Silva M.D. [address] [address] Patient Name: TEE MCKEON MRN: [id number] date: 1980 Sex: M Assigned Patient Location: MRI Current Patient Location: MRI Accession/Order Number: [id number] Exam Date: 11/07/2024 09:16 Report Date: 11/07/2024 [...] Chinchilla M.D. 11/07/2024 9:25 AM Dictation Location: [place] [address] Electronically authenticated by: [id number] Y Date: 11/07/2024 09:25 Dictated By: Angie Chinchilla M.D. Signed By: 11/07/2428 DD/ 4 TD/TT: Process Engineer:TBHRadiology, Radiologist, - 11/07/[address] [address] Magnetic Resonance Report Signed Patient: TEE MCKEON MR#: [id number] : 1980 Acct:[id number] Age/Sex: 43 / M ADM Date: 11/07/24 Loc: MRI Attending Dr: Park Falcon NP Ordering Physician: Park Falcon NP Date of Service: 11/07/24 Procedure(s): MR lumbar spine wo con Accession Number(s): [id number] cc: Park Falcon NP; Orville Silva M.D. The [address] [id number] Patient Name: TEE MCKEON MRN: [id number] date: 1980 Sex: M Assigned Patient Location: MRI Current Patient Location: MRI Accession/Order Number: [id number] Exam Date: 11/07/2024 09:16 Report Date: 11/07/2024 [...] Chinchilla M.D. 11/07/2024 9:25 AM Dictation Location: [place] [address] Electronically authenticated by: [id number] Y Date: 11/07/2024 09:25 Dictated By: Angie Chinchilla M.D. Signed By: 11/07/24927 DD/ 4 TD/TT: Process Engineer: TOLU [facility] CenterRadiology Study observation (narrative)[facility] LUMBAR SPINE WO CONOrdered By: Radiologist Radiology on 60-45-4257[facility] Work Phone: XR ANKLE RT MIN 3Von 16-99-8134UcmBaton [place] [address] XRay Report Signed Patient: TEE MCKEON MR#: [id number] : 1980 Acct:[id number] Age/Sex: 43 / M ADM Date: 05/20/24 Loc: RAD Attending Dr: Sebastián Baldwin D.P.M. Ordering Physician: Sebastián Baldwin D.P.M. Date of Service: 05/20/24 Procedure(s): XR ankle RT min 3V Accession Number(s): [id number] cc: Sebastián Baldwin D.P.M.; Orville Silva M.D. The [place] [address] Patient Name: TEE MCKEON MRN: [id number] date: 1980 Sex: M Assigned Patient Location: RAD Current Patient Location: RAD Accession/Order Number: [id number] Exam Date: 05/20/2024 07:45 Report Date: 05/20/2024 [...] Signed By: 05/20/24 1253 DD/ 1250 TD/TT: Process Engineer:TBHRadiology, Radiologist, - 05/20/2024 [place] [address] XRay Report Signed Patient: TEE MCKEON MR#: [id number] : 1980 Acct:[id number] Age/Sex: 43 / M ADM Date: 05/20/24 Loc: RAD Attending Dr: Sebastián Baldwin D.P.M. Ordering Physician: Sebastián Baldwin D.P.M. Date of Service: 05/20/24 Procedure(s): XR ankle RT min 3V Accession Number(s): [id number] cc: Sebastián Baldwin D.P.M.; Orville Silva M.D. The [place] [address] Patient Name: ETE MCKEON MRN: [id number] date: 1980 Sex: M Assigned Patient Location: [facility] Current Patient Location: RAD Accession/Order Number: [id number] Exam Date: 05/20/2024 07:45 Report Date: 05/20/2024 [...] Signed By: 05/20/24 1253 DD/ 1250 TD/TT: Process Engineer: TOLU HealthcareRadiology Study observation (narrative)[facility] HealthcareXR ANKLE RT MIN 3VOrdered By: Radiologist Radiology on 19-38-1268[facility] Work Phone: XR Knee - left 4 Viewson 85-21-5624AxcBaton [place] [address] XRay Report Signed Patient: TEE MCKEON MR#: [id number] : 1980 Acct:[id number] Age/Sex: 42 / M ADM Date: 12/17/23 Loc: RAD Attending Dr: Dimitry Fisher M.D. Ordering Physician: Dimitry Fisher M.D. Date of Service: 12/17/23 Procedure(s): XR knee LT 4V Accession Number(s): [id number] cc: Dimitry Fisher M.D.; Orville Silva M.D. The [place] [address] Patient Name: TEE MCKEON MRN: [id number] date: 1980 Sex: M Assigned Patient Location: [facility] Current Patient Location: Accession/Order Number: [id number] Exam Date: 12/17/2023 13:15 Report Date: 12/18/2023 [...] Signed By: 12/18/23 1104 DD/ 1102 TD/TT: Process Engineer:SHAWNEEadiolanjelica, Radiologist, - 12/18/2023 [place] [address] XRay Report Signed Patient: TEE MCKEON MR#: [id number] : 1980 Acct:[id number] Age/Sex: 42 / M ADM Date: 12/17/23 Loc: RAD Attending Dr: Dimitry Fisher M.D. Ordering Physician: Dimitry Fisher M.D. Date of Service: 12/17/23 Procedure(s): XR knee LT 4V Accession Number(s): [id number] cc: Dimitry Fisher M.D.; Orville Silva M.D. The [place] [address] Patient Name: TEE MCKEON MRN: [id number] date: 1980 Sex: M Assigned Patient Location: RAD Current Patient Location: Accession/Order Number: [id number] Exam Date: 12/17/2023 13:15 Report Date: 12/18/2023 11:02 At the request of: DIMITRY FIHSER Procedure: XR knee LT 4V PROCEDURE: XR [...] Signed By: 12/18/23 1104 DD/ 1102 TD/TT: Process Engineer: TOLU HealthcareRadiology Study observation (narrative)[facility] HospitalXR Knee - left 4 ViewsOrdered By: Radiologist Radiology on 22-97-2279SFPM [facility] Work Phone: XR FOOT MANJINDER MIN 3 VIEWSon 41-28-2868JlzBaton [place] [address] XRay Report Signed Patient: TEE MCKEON MR#: [id number] : 1980 Acct:[id number] Age/Sex: 42 / M ADM Date: 10/25/23 Loc: Attending Dr: Uziel Miranda Ordering Physician: Uziel Miranda Date of Service: 10/25/23 Procedure(s): XR foot MANJINDER min 3V Accession Number(s): [id number] cc: Uziel Miranda; Orville Silva M.D. The [address] [address] Patient Name: TEE MCKEON MRN: [id number] date: 1980 Sex: M Assigned Patient Location: Current Patient Location: Accession/Order Number: [id number] Exam Date: 10/25/2023 14:52 Report Date: 10/25/2023 [...] Signed By: 10/25/23 1551 DD/ 1549 TD/TT: Process Engineer:TBHRadiology, Radiologist, - 10/25/2023 [place] [address] XRay Report Signed Patient: TEE MCKEON MR#: [id number] : 1980 Acct:[id number] Age/Sex: 42 / M ADM Date: 10/25/23 Loc: Attending Dr: Uziel Miranda Ordering Physician: Uziel Miranda Date of Service: 10/25/23 Procedure(s): XR foot MANJINDER min 3V Accession Number(s): [id number] cc: Uziel Miranda; Orville Silva M.D. The [address] [address] Patient Name: TEE MCKEON MRN: [id number] date: 1980 Sex: M Assigned Patient Location: Current Patient Location: Accession/Order Number: [id number] Exam Date: 10/25/2023 14:52 Report Date: 10/25/2023 [...] By: Favio Peres M.D. Signed By: 10/25/23 1552 DD/ 1549 TD/TT: Process Engineer: TOLU HealthcareRadiology Study observation (narrative)[facility] HealthcareXR FOOT MANJINDER MIN 3 VIEWSOrdered By: Radiologist Radiology on 64-46-2472Z[facility] Work Phone: XR HIP LT MIN 2Von 59-83-5112VoqBaton [place] [address] XRay Report Signed Patient: TEE MCKEON MR#: [id number] : 1980 Acct:[id number] Age/Sex: 42 / M ADM Date: 07/28/23 Loc: RAD Attending Dr: Dimitry Fisher M.D. Ordering Physician: Dimitry Fisher M.D. Date of Service: 07/28/23 Procedure(s): XR hip LT min 2V Accession Number(s): [id number] cc: Dimitry Fisher M.D.; Orville Silva M.D. The [place] [address] Patient Name: TEE MCKEON MRN: [id number] date: 1980 Sex: M Assigned Patient Location: RAD Current Patient Location: Accession/Order Number: [id number] Exam Date: 07/28/2023 09:30 Report Date: 07/30/2023 [...] M.D. Signed By: 07/30/23926 DD/ 3 TD/TT: Process Engineer:SHAWNEEadiologdelgado, Radiologist, - 08/02/2023 [place] [address] XRay Report Signed Patient: TEE MCKEON MR#: [id number] : 1980 Acct:[id number] Age/Sex: 42 / M ADM Date: 07/28/23 Loc: RAD Attending Dr: Dimitry Fisher M.D. Ordering Physician: Dimitry Fisher M.D. Date of Service: 07/28/23 Procedure(s): XR hip LT min 2V Accession Number(s): [id number] cc: Dimitry Fisher M.D.; Orvlile Silva M.D. The [address] [id number] Patient Name: TEE MCKEON MRN: [id number] date: 1980 Sex: M Assigned Patient Location: RAD Current Patient Location: Accession/Order Number: [id number] Exam Date: 07/28/2023 09:30 Report Date: 07/30/2023 [...] M.D. Signed By: 07/30/23926 DD/ 3 TD/TT: Process Engineer: TOLU HealthcareRadiology Study observation (narrative)[facility] HealthcareXR HIP LT MIN 2VOrdered By: Radiologist Radiology on 07-36-8340WD[facility] Work Phone: XR LUMBAR SPINE 6V W BENDINGon 62-83-0598PflBaton [place] [address] XRay Report Signed Patient: TEE MCKEON MR#: [id number] : 1980 Acct:[id number] Age/Sex: 42 / M ADM Date: 07/28/23 Loc: RAD Attending Dr: Dimitry Fisher M.D. Ordering Physician: Dimitry Fisher M.D. Date of Service: 07/28/23 Procedure(s): XR lumbar spine 6V w bending Accession Number(s): [id number] cc: Dimitry Fisher M.D.; Orville Silva M.D. The [place] [address] Patient Name: TEE MCKEON MRN: [id number] date: 1980 Sex: M Assigned Patient Location: RAD Current Patient Location: RAD Accession/Order Number: [id number] Exam Date: 07/28/2023 09:30 Report Date: 07/30/2023 [...] Signed By: 07/30/23 1013 DD/ 1011 TD/TT: Process Engineer:SHAWNEEadiologdelgado, Radiologist, - 08/02/2023 [place] [address] XRay Report Signed Patient: TEE MCKEON MR#: [id number] : 1980 Acct:[id number] Age/Sex: 42 / M ADM Date: 07/28/23 Loc: RAD Attending Dr: Dimitry Fisher M.D. Ordering Physician: Dimitry Fisher M.D. Date of Service: 07/28/23 Procedure(s): XR lumbar spine 6V w bending Accession Number(s): [id number] cc: Dimitry Fisher M.D.; Orville Silva M.D. The [place] [address] Patient Name: TEE MCKEON MRN: [id number] date: 1980 Sex: M Assigned Patient Location: [facility] Current Patient Location: [facility] Accession/Order Number: [id number] Exam Date: 07/28/2023 09:30 Report Date: 07/30/2023 [...] Signed By: 07/30/23 1013 DD/ 1011 TD/TT: Process Engineer: [facility] HealthcareRadiology Study observation (narrative)[facility] HospitalXR LUMBAR SPINE 6V W BENDINGOrdered By: Radiologist Radiology on 13-75-8478EMXB [facility] Work Phone: cbc AUTO DIFFon 61-04-1392KOSY #0.0 103/ulNormal 0.0-0.1[facility] Health InstituteComment on above:Performed By: #### CBC #### [facility] [address] [place] [address] Sara KarenBasophils/100 WBC (Bld)0.4 %Normal0.2-2.0[facility] Comment on above:Performed By: #### CBC #### [facility] [address] [place] [address] Sara KarenEO #0.2 103/ulNormal0.0-0.7The [facility] Health CenterComment on above: Performed By: #### CBC #### [facility] [address] [place] [address] Sara KarenEosinophils/100 WBC (Bld)3.1 %Normal0.9-7.0The [facility] Comment on above:Performed By: #### CBC #### [facility] [address] [place] [address] Sara KarenErythrocyte distribution width (RBC) [Ratio]12.8 %Aaynyr41.0-15.0The [facility] CenterComment on above:Performed By: #### CBC #### [facility] [address] [place] [address] Sara KarenHematocrit (Bld) [Volume fraction]44.8 %Sbstqj64.0-54.0The [facility] CenterComment on above:Performed By: #### CBC #### [facility] [address] [place] [address] Sara KarenHemoglobin (Bld) [Mass/Vol]14.8 g/wBDhedra02.0-18.0The [facility] CenterComment on above:Performed By: #### CBC #### [facility] [address] [place] [address] Sara KarenIG #0.02 10e3/ulNormal0.00-0.03The [facility] CenterComment on above:Performed By: #### CBC #### [facility] [address] [place] [address] Sara KarenIG %0.3 %Normal0.0-0.5The [facility] CenterComment on above: Performed By: #### CBC #### [facility] [address] [place] [address] Sara KarenLYMPH #2.5 103/ulNormal1.2-3.8The [facility] CenterComment on above: Performed By: #### CBC #### [facility] [address] [place] [address] Sara KarenLymphocytes/100 WBC (Bld)33.4 %Fyszzf24.5-60.0The [facility] Comment on above:Performed By: #### CBC #### [facility] [address] [place] [address] Sara KarenMANUAL DIFF REQNONormalThe Fulton County Health CenterComment on above: Performed By: #### CBC #### [facility] [address] [place] [address] Sara KarenMCH (RBC) [Entitic mass]29.2 ryJagegt40.9-34.0[facility] Comment on above:Performed By: #### CBC #### [facility] [address] [place] [address] Sara AdamsMCHC (RBC) [Mass/Vol]33.0 g/mTYjvhje77.9-35.2[facility] Comment on above:Performed By: #### CBC #### [facility] [address] [place] [address] Sara DuranenMCV (RBC) [Entitic vol]88.4 aKTmxxsx67.0-94.0[facility] Comment on above:Performed By: #### CBC #### [facility] [address] [place] [address] Sara DuranenMONO #0.5 103/ulNormal0.3-0.8The [facility] County Health CenterComment on above: Performed By: #### CBC #### [facility] [address] [place] [address] Sara KarenMonocytes/100 WBC (Bld)7.0 %Normal1.7-12.0[facility] Comment on above:Performed By: #### CBC #### [facility] [address] [place] [address] Sara DuranenNEUT #4.2 103/ulNormal1.4-6.5The [facility] County Health CenterComment on above: Performed By: #### CBC #### [facility] [address] [place] [address] Sara KarenNeutrophils/100 WBC (Bld)55.8 %Gveqph43.0-75.0[facility] Comment on above:Performed By: #### CBC #### [facility] [address] [place] [address] Sara KarenPlatelet mean volume (Bld) [Entitic vol]10.7 fLNormal9.5-13.5The [facility] County Health CenterComment on above:Performed By: #### CBC #### [facility] [address] [place] [address] Sara IufooXPL155 103/nnGijril288-330Isi [facility] CenterComment on above: Performed By: #### CBC #### [facility] [address] [address] Sara KarenRBC5.07 106/ulNormal4.70-6.10The [facility] CenterComment on above: Performed By: #### CBC #### [facility] [address] [place] [address] Sara KarenWBC7.5 103/ulNormal4.0-11.0[facility] InstituteComment on above: Performed By: #### CBC #### [facility] [address] [address] Sara KarenGLYCOHEMOGLOBIN A1Con 50-29-5865IUU RECOMMENDATIONADA THERAPEUTIC TARGET 6.0 - 7.0 ACTION SUGGESTED > 7.0NoElyria Memorial HospitalComment on above:Performed By: #### A1C #### [facility] [address] [place] [address] Sara KarenGlucose [Mass/Vol]120 mg/dLNoElyria Memorial HospitalComment on above:Performed By: #### A1C #### [facility] [address] [place] [address] Sara NejxqQtP7f (Bld) [Mass fraction]5.8 %Normal<=6.0[facility] Comment on above:Performed By: #### A1C #### [facility] [address] [place] [address] Sara KarenLIPID PROFILEon 73-62-0410SSBF-HDL RATIO NORMSEE BELOWAdena Regional Medical CenterComment on above:Result Comment: 3.3 - 4.4 LOW RISK 4.4 - 7.1 AVERAGE RISK 7.1 - 11.0 MODERATE RISK >11.0 HIGH RISKPerformed By: #### CMP, LIPID, PSASC #### [facility] [address] [place] [address] Sara KarenCholesterol [Mass/Vol]166 mg/dLNoal<=200[facility] Comment on above:Performed By: #### CMP, LIPID, PSASC #### [facility] [address] [place] [address] Sara KarenCholesterol in HDL [Mass/Vol]46 mg/dLAdena Regional Medical Center Comment on above:Performed By: #### CMP, LIPID, PSASC #### [facility] [address] [address] Sara KarenCholesterol in LDL [Mass/Vol]104.6 mg/dLAdena Regional Medical Center Comment on above:Performed By: #### CMP, LIPID, PSASC #### [facility] [address] [place] [address] Sara KarenCholesterol.total/Cholesterol in HDL [Mass ratio]3.6 {ratio}Normal The [facility] County Health CenterComment on above:Performed By: #### CMP, LIPID, PSASC #### [facility] [address] [place] [address] Sara KarenHDL NORMAL> or = 60 mg/dl - LOW CARDIOVASCULAR RISK <40 mg/dl - HIGH CARDIOVASCULAR RISKAdena Regional Medical CenterComment on above:Performed By: #### CMP, LIPID, PSASC #### [facility] [address] [place] [address] Sara KarenLDL CALC NORMALSEE BELOWAdena Regional Medical CenterComment on above: Result Comment: <100 mg/dl OPTIMAL 100 - 129 mg/dl NEAR OR ABOVE OPTIMAL 130 - 159 mg/dl BORDERLINE HIGH 160 - 189 mg/dl HIGH >190 mg/dl VERY HIGHPerformed By: #### CMP, LIPID, PSASC #### [facility] [address] [place] [address] Sara KarenTriglyceride [Mass/Vol]77 mg/dLNormal<=150[facility] Comment on above:Performed By: #### CMP, LIPID, PSASC #### [facility] [address] [place] [address] Sara KarenVLDL CALC15.4 mg/dLAdena Regional Medical CenterComment on above: Performed By: #### CMP, LIPID, PSASC #### [facility] [address] [place] [address] Sara KarenPROF 14(COMP METB)on 21-92-6162Pftskfx [Mass/Vol]3.4 g/dLCritically low3.5-5.0[facility] InstituteComment on above:Performed By: #### CMP, LIPID, PSASC #### [facility] [address] [id number] Sara KarenAlbumin/Globulin [Mass ratio]0.8 {ratio}NormalRiverview Health Institute Comment on above:Performed By: #### CMP, LIPID, PSASC #### [facility] [address] [address] Sara KarenALP [Catalytic activity/Vol]80 U/RBxtjnd70-961YehRiverview Health Institute Comment on above:Performed By: #### CMP, LIPID, PSASC #### [facility] [address] [place] [address] Sara KarenALT [Catalytic activity/Vol]55 U/DQwymdf40-98AncRiverview Health Institute Comment on above:Performed By: #### CMP, LIPID, PSASC #### [facility] [address] [place] [address] Sara KarenAnion gap [Moles/Vol]11.4 mmol/LNormalRiverview Health InstituteComment on above:Performed By: #### CMP, LIPID, PSASC #### [facility] [address] [place] [address] Sara KarenAST [Catalytic activity/Vol]26 U/OPzpgaq57-80ZzjRiverview Health Institute Comment on above:Performed By: #### CMP, LIPID, PSASC #### [facility] [address] [address] Sara KarenBilirubin [Mass/Vol]0.5 mg/dLNormal0.2-1.3TSelect Medical Specialty Hospital - Tr[facility]ull Comment on above:Performed By: #### CMP, LIPID, PSASC #### [facility] [address] [place] [address] Sara KarenCalcium [Mass/Vol]9.1 mg/dLNormal8.4-10.2[facility] Comment on above:Performed By: #### CMP, LIPID, PSASC #### [facility] [address] [place], [place] [address] Sara KarenChloride [Moles/Vol]106 mmol/HEauije48-709Rxo [facility] Comment on above:Performed By: #### CMP, LIPID, PSASC #### [facility] [address] [place] [address] Sara KarenCO2 [Moles/Vol]30.9 mmol/LCritically high22.0-30.0The [facility] County Health CenterComment on above:Performed By: #### CMP, LIPID, PSASC #### [facility] [address] [place] [address] Sara KarenCreatinine [Mass/Vol]0.95 mg/dLNormal0.66-1.25The [facility] Comment on above:Performed By: #### CMP, LIPID, PSASC #### [facility] [address] [place] [address] Sara KarenEGFR-AF KOSOVAN>60Normal>=60The [facility] County Health CenterComment on above: Performed By: #### CMP, LIPID, PSASC #### [facility] [address] [place] [address] Sara KarenEGFR-NON AF KOSOVAN>60Normal>=60The [facility] County Health CenterComment on above:Performed By: #### CMP, LIPID, PSASC #### [facility] [address] [place] [address] Sara KarenGlobulin (S) [Mass/Vol]4.1 g/dLNormalThe [facility] County Health CenterComment on above:Performed By: #### CMP, LIPID, PSASC #### [facility] [address] [place] [address] Sara KarenGlucose [Mass/Vol]106 mg/zHPnuwmq09-703Sly [facility] Health CenterComment on above:Performed By: #### CMP, LIPID, PSASC #### [facility] [address] [place] [address] Sara KarenPotassium [Moles/Vol]4.3 mmol/LNormal3.4-5.0[facility] Comment on above:Performed By: #### CMP, LIPID, PSASC #### [facility] [address] [place], [place] [address] Sara KarenProtein [Mass/Vol]7.5 g/dLNormal6.1-8.2The [facility] County Health CenterComment on above:Performed By: #### CMP, LIPID, PSASC #### [facility] [address] [place], [place] [address] Sara KarenSodium [Moles/Vol]144 mmol/IUpbphe356-664Joj [facility] Comment on above:Performed By: #### CMP, LIPID, PSASC #### [facility] [address] [place], [place] [address] Sara KarenUrea nitrogen [Mass/Vol]11.0 mg/dLNormal9.0-20.0The [facility] County Health CenterComment on above:Performed By: #### CMP, LIPID, PSASC #### [facility] [address] [place], [place] [address] Sara KarenUrea nitrogen/Creatinine [Mass ratio]11.6 mg/mgNormalThe [facility] County Health CenterComment on above:Performed By: #### CMP, LIPID, PSASC #### [facility] [address] [place], [place] [address] Sara Angie Vital Signs Date TimeVital SignValuePerforming AfmosyvcpMcwjzxyw80-11-3996 09:40-0400Body qdlrgy026.8 cmOrville Silva MD Work Phone: [phone] [employer] [place], [place] [address]010-17-2025 09:40-0400 Body mass index (BMI) [Ratio]48.6 kg/m2Orville Silva MD Work Phone: [phone]-[facility]10-17-2025 09:40-0400 Body nbcuce653.76 kgOrville Silva MD Work Phone: [phone]-[facility]10-17-2025 09:40-0400 Diastolic blood dbqjoxad078 mm[Hg]Orville Silva MD Work Phone: [phone] [employer] [place], [place] [address]-17-2025 09:40-0400 Heart rate78 /minOrville Silva MD Work Phone: [facility]10-17-2025 09:40-0400 Respiratory rate18 /Tigist Silva MD Work Phone: [facility]10-17-2025 09:40-0400 SaO2% (BldA) [Mass fraction]96 %Orville Silva MD Work Phone: [facility]10-17-2025 09:40-0400 Systolic blood oayjjrnp650 mm[Hg]Orville Silva MD Work Phone: [facility]07-16-2025 09:21-0400 Body .8 cmMemorial [facility]07-16-2025 09:21-0400Body mass index (BMI) [Ratio]48.6 kg/s8BuzzkwtvvMemorial Health System [facility] Hospital07-16-2025 09:21-0400Body .76 kgMemorial Health [facility] Encounters Encounter DateEncounter TypeCare ProviderFacilityStart: 02-13-2025 End: 34-29-0309ilniomsdxaQyvx Naderer MD Work Phone: [phone]-Pfaqjnqlt Health RheumatologyStart: 02-13-2025 End: 22-88-3015Gwhdbvs encounter procedureRon Talavera MD-[facility] Work Phone: Start: 02-09-2025 End: 49-82-2742wbhyqzowdaSSRGrand Lake Joint [facility] Work Phone: Start: 02-09-2025 End: 17-81-6828Avsyvgk encounter procedureJustgermain Walker [facility] Work Phone: Start: 11-12-2024 End: 02-32-5374wpyqlgpjilUNTGrand Lake Joint [facility] District [facility] Hospital Work Phone: Start: 11-12-2024 End: 88-11-1602Ariwveq encounter procedureJumatt Walker [facility] Work Phone: Start: 11-07-2024 End: 14-21-7195Yxdmvexlx Result EncounterGeneric External Data ProviderNOMS External Department UnsolicitedStart: 11-07-2024 End: 05-41-0860Ysewhvqbz Result EncounterGeneric External Data ProviderNOMS External Department UnsolicitedStart: 05-20-2024 End: 05-93-1400Wylswfsom Result EncounterGeneric External Data ProviderNOMS External Department UnsolicitedStart: 05-20-2024 End: 42-47-2817Yxzokkgwz Result EncounterGeneric External Data ProviderNOMS External Department UnsolicitedStart: 02-28-2024 End: 23-13-5900yesdrgqthuOnyxbmiwmTriHealth [facility] Work Phone: Start: 02-28-2024 End: 36-05-8218Ujpljzj encounter procedureUn[facility] Work Phone: Start: 02-26-2024 End: 47-49-7651ugcaavmzmyBxqowcmhgTriHealth [facility] Work Phone: Start: 02-26-2024 End: 64-24-6845Oguwphj encounter procedureUnc Health [facility] Work Phone: Start: 12-18-2023 End: 38-28-8709Epriqxyuj Result EncounterGeneric External Data ProviderNOMS External Department UnsolicitedStart: 12-18-2023 End: 44-37-1529Wbbeowrst Result EncounterGeneric External Data ProviderNOMS External Department UnsolicitedStart: 10-25-2023 End: 88-64-7666Yubnncamo Result EncounterGeneric External Data ProviderNOMS External Department UnsolicitedStart: 10-25-2023 End: 17-46-4213Otidrrqxt Result EncounterGeneric External Data ProviderNOMS External Department UnsolicitedStart: 07-30-2023 End: 44-69-6721Ftnhnkrgb Result EncounterGeneric External Data ProviderNOMS External Department UnsolicitedStart: 07-30-2023 End: 14-58-0484Ckqkkgoyv Result EncounterGeneric External Data ProviderNOMS External Department UnsolicitedStart: 03-27-2023 End: 91-65-9852zfybjqbxdrIQDU NADERERNot AvailableStart: 08-75-4170Gcurvntsw for general adult medical examination without abnormal findingsDR CHANTELL MALAVESelect Medical Specialty Hospital - Columbustart: 10-20-2020 End: 41-28-0669mpjhqvsrshZG CHANTELL Walter BRITTANIMARCO ANTONIOFacility:F1Dnisd: 10-20-2020 End: 75-85-9708Wmulgncrg for general adult medical examination without abnormal findings HCANTELL Walter ANANDAFacility:Y3Txllt: 08-19-2020 End: 98-41-3799fwaesmoxibTC KIM Saba BRITTANIIGHTFacility:N2Tipho: 07-27-2020 End: 54-82-9283wyokcdcbacSZ NONE LISTED REQUESTFacility:H1 Procedures DateProcedureProcedure DetailPerforming ClinicianStart: 38-08-7970Sbews X-ray of right hipStart: 07-60-0155Y-ray of right knee, four viewsStart: 08-23-6104YN LUMBAR SPINE WO CONGeneric External Data ProviderStart: 50-93-4039CI ANKLE RT MIN 3VGeneric External Data ProviderStart: 36-59-6795Btgvcrorzk exam knee complete 4/more viewsGeneric External Data ProviderStart: 18-38-0523DR FOOT MANJINDER MIN 3 VIEWSGeneric External Data ProviderStart: 47-44-0264GU LUMBAR SPINE 6V W BENDINGGeneric External Data ProviderStart: 81-14-1704SD HIP LT MIN 2VGeneric External Data ProviderStart: 02-81-5023DWW screeningDR CHANTELL MALAVEComment on above:Performed By: #### CMP, LIPID, PSASC #### [facility] [address] [place] [address] Sara Adams Plan of Treatment DateCare ActivityDetailAuthorStart: 98-63-6185Yaazdlbpb monophosphate.cyclic [Moles/volume] in Serum or PlasmaSumma Health Wadsworth - Rittman Medical Centertart: 13-80-4227Dqidlrcgjr factor [Units/volume] in Serum or PlasmaSumma Health Wadsworth - Rittman Medical Centertart: 70-44-9527SapbafvksMercy Health Def[facility] Hospital CenterStart: 40-56-6296Qqojbxp referralBarney Children'S Medical Center Work Phone: Start: 79-51-0006Kwaagionu vaccinationInfluenza Vaccine (#1)[facility] HospitalStart: 14-55-5195Hclos X-ray of right hipXR hip RT min 2V(w/wo pelvis)*[facility] Ritt[facility] Medical Centertart: 94-00-5242V-ray of right knee, four viewsXR knee RT 4V*[facility] Ritt[facility] Medical Centertart: 81-09-5258IX Hip - right 2 ViewsSumma Health Wadsworth - Rittman Medical Centertart: 60-63-3169CY Knee - right 4 ViewsMemorial Health System Selby General HospitalHesan francisco [facility] hospital A virus antibody, IgM [facility] B core antibody measurement, IgM [facility] B virus surface Ag [Presence] in Serum or Plasma by ImmunoassayMemorial Health System Selby General HospitalHesan francisco general hospital C virus IgG Ab [Presence] in Serum or Plasma by ImmunoassayBarberton Citizens Hospital C virus RNA [log units/volume] (viral load) in Serum or Plasma by ADAN with probe detection [facility] C virus RNA [Units/volume] (viral load) in Serum or Plasma by ADAN with probe detectionMemorial Health System Selby General HospitalInterferon gamma assayMemorial Health System Selby General HospitalMycobacterium tuberculosis stimulated gamma interferon [Interpretation] in Blood Qualitative [facility] HospitalMycobacterium tuberculosis stimulated gamma interferon release by CD4+ and CD8+ T-cells [Units/volume] corrected for background in BloodMemorial Health System Selby General HospitalMycobacterium tuberculosis tuberculin stimulated gamma interferon [Presence] in BloodMemorial Health System Selby General HospitalPatient referralBarney Children'S Medical Center Work Phone: [facility] Payers DatePayer CategoryPayerPolicy [id number] Health [place] [id number] [id number]-[id number] [id number] [id number] [id number] [id number] Social History DateTypeDetailFacilityTobacco smoking status NHISUnknown if ever smokedBarney Children'S Medical Center Work Phone: Start: 35-03-3292Sfn Assigned At [facility] Healthtart: 03-27-2023 End: 35-83-6909Cjhlrpi smoking status NHISNever smoked tobacco (finding) [facility] Medical Centertart: 70-56-9709Jwbqxij use and exposure Smokeless tobacco non-userNOMS HealthcareStart: 63-77-8722Vdzxelrie beverage intakeLifetime non-drinker (finding)NOMS HealthcareStart: 03-26-2023 End: 30-02-3644Vzejajv of Social functionNOFL HealthcareStart: 03-26-2023 End: 54-86-6540Uyptqmkmygc, Afraid, Rape, and Kick questionnaire [HARK]NOMS HealthcareWithin [...] have 6 or more drinks on 1 occasion?NeverWashington County Memorial HospitalStart: 07-87-4396Hkg hard is it for you to pay for the very basics like food, housing, medical care, and heatingNot hard at [facility] HospitalDo you feel stress - tense, restless, nervous, or anxious, or unable to sleep at night because your mind is troubled all the time - these days [OSQ]Not at [facility](I/We) worried whether (my/our) food would run out before (I/we) got money to buy more. Never trueWashington County Memorial HospitalStart: 57-86-4390Pru assigned at birthNot on [facility] CenterSexMale (finding)[facility] Evaluation note 02-09-2025 Note Date & PhoyAgbwFxpvggiu31-15-5410 Evaluation note* Diagnosis Onset Date Resolution Status Admit Date Arthritis of right knee acuteOct2024 9:26amBMI 45.0-49.9, adultacuteOct2024 9:26am Class 3 severe obesity with body mass index (BMI) of 45.0 to 49.9 in adultacute October 2024 9:26amPrimary osteoarthritis of left kneeacuteOct2024 9:26amPrimary osteoarthritis of right hipacuteOct2024 9:26am PsoriasisacuteOctober 2024 9:39am [facility] Work Phone: Evaluation note 02-09-2025 Note Date & WuluRuafAwayqobo96-77-0389 Evaluation note* Diagnosis Onset Date Resolution Status [...] anterior knee painacuteOctober 2024 9:39am [facility] Work Phone: Evaluation note 11-12-2024 Note Date & MwhzGphrBatztigk30-12-1426 Evaluation note* Diagnosis Onset Date Resolution Status Admit Date Arthritis of right knee acuteJuly 2024 9:18amBMI 45.0-49.9, adultacuteJuly 2024 9:18amClass 3 severe obesity with body mass index (BMI) of 45.0 to 49.9 in adultacuteJuly 2024 9:18amPrimary osteoarthritis of right hipacuteJuly 2024 9:18am [facility] Work Phone: Evaluation note 11-12-2024 Note Date & AvtdZrpcFhujfwgm17-50-4069 Evaluation note* Diagnosis Onset Date Resolution Status [...] osteoarthritis of right hipacute October 2024 9:26am [facility] Work Phone: Evaluation note Note Date & TypeNoteFacilityEvaluation noteNo assessment information available [facility] Work Phone: Evaluation note Note Date & TypeNoteFacilityEvaluation note* Diagnosis Onset Date Resolution Status Admit Date Arthritis of right knee acuteJuly 2024 9:18amBMI 45.0-49.9, adultacuteJuly 2024 9:18amClass 3 severe obesity with body mass index (BMI) of 45.0 to 49.9 in adultacuteJuly 2024 9:18amPrimary osteoarthritis of right hipacuteJuly 2024 9:18am [facility] Work Phone: Hospital Discharge instructions Note Date & TypeNoteFacilityHospital Discharge instructionsAmbulatory Orders* Referral to Rheumatology Time Frame: 02/09/25, Location: None Selected [facility] Work Phone: Reason for referral (narrative) Note Date & TypeNoteFacilityReason for referral (narrative)No reason for referral information availableBarney Children'S Medical Center Work Phone: Summary Purpose Family History Relationship [...] and content) DATE CREATED AUTHOR 10/26/2020 [facility] DATE CREATED AUTHOR AUTHOR'S ORGANIZ ATION 03/29/2023 [facility] DATE CREATED AUTHOR AUTHOR'S ORGANIZ ATION 02/22/2025 [facility] Care Teams (unrecognized sec tion [...] 2024Team MemberRelationshipSpecialtyStart DateEnd Date Or[facility] Team Status: Inactive Member Role Status [...] Status: Inactive Member Role Status Dates Buck Walker DO Attending Provider [...] 2025Team MemberRelationshipSpecialtyStart DateEnd Date Or[facility]01[facility]23Team MemberRelationshipSpecialtyStart DateEnd Date Orville Silva MD PCP - GeneralFamily Uxqsxlkn34/1/23 Goals (unrecognized section and content) Goals may [...] BE BASED ON THE PRIMARY CLINICAL RECORDS. [facility] [employer] provides no warranty or guarantee of the accuracy or completeness of information in this document.
--- NOTE | 2025-04-29 09:49 | PM.CN ---
Consult Note: HPI Data of Consult Patient: known to practice within the last 3 years Requesting Physician: Nika Falcon NP Primary Care Provider: Orville Asher MD Consult Narrative Reason for consult: low back and LLE pain Narrative: Tee Mckeon a pleasant 44 year old male with chronic low back pain and lumbar radiculopathy > 12 months presents for evaluation of acute LLE pain. 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 Pain intermittently 8/10 in low back and LLE, especially with driving, sitting, and transitioning. Notes sharp pain with tingling to left leg and toes. utilizing tylenol, tylenol #3, and motrin with minimal relief. denies side effects. has not utilized baclofen recently, does have at home if needed. cc:: CC: Nika Falcon NP Review of Systems ROS Musculoskeletal Reports: back pain and extremity pain PFSH PFSH Medical History (Updated 04/29/25 @ 09:53 by Nika Falcon NP) Heel spur ?M77.30 - Calcaneal spur, unspecified foot (ICD-10) Kidney stone ?N20.0 - Calculus of kidney (ICD-10) HTN (hypertension) ?I10 - Essential (primary) hypertension (ICD-10) Surgical History History of lithotripsy ?Z98.890 - Other specified postprocedural states (ICD-10) Social History Little interest or pleasure in doing things: not at all Feeling down, depressed, or hopeless: not at all Meds Home Medications and Allergies Home Medications ?Medication ?Instructions ?Recorded ?Confirmed ?Type baclofen 10 mg tablet 10 mg PO DAILY PRN muscle spasm 12/25/23 10/30/24 History lisinopril 20 1 tab PO DAILY 12/25/23 10/30/24 History mg-hydrochlorothiazide 25 mg tablet acetaminophen 300 mg-codeine 30 mg 1 tab PO Q6H PRN pain 5 days #20 10/30/24 Rx tablet tabs prednisone 10 mg tablet See Rx Instructions .Route 10/30/24 Rx .COMPLEX #30 tabs Allergies Allergy/AdvReac Type Severity Reaction Status Date / Time No Known Drug Allergies Allergy Verified 02/28/24 18:04 Exam Constitutional Documenting provider has reviewed patient's vital signs: yes Common normals: no apparent distress, oriented x3 and alert General appearance: cooperative HENMT Common normals: normocephalic, hearing grossly normal bilaterally and moist oral mucous membranes Head and scalp: normocephalic Eye Common normals: PERRL Pupil: PERRL Neck & C-Spine Common normals: full ROM General: normal visual inspection Chest Common normals: inspection of chest normal Respiratory Common normals: normal respiratory effort, no retractions and no use of accessory muscles Back & Pelvis Lumbar spine/lower back: pain with ROM and straight leg raise negative bilaterally Other: increased low back pain and discogenic pain with forward flexion intermittent left L4,5,S1 radiculopathy strength 5/5 in BLE Neuro Common normals: oriented x3 Sensorium/orientation: alert Psych Common normals: mental status grossly normal, thought process normal, cooperative, affect normal, speech normal and activity/motor behavior normal Speech: normal speech Thought process: normal thought process Results Additional Findings Additional findings: If on a controlled substance or opioids, I have checked an [place] report on this patient and there are no aberrancies noted in the prescribing history.??If on a controlled substance or opioid a drug screen was completed and reviewed within the last year, and if there has not been a drug screen completed we ordered one today to monitor higher risk, state monitored pain medication use. As part of providing excellent, safe, comprehensive care, the following was completed at our patient's visit: 1. A medication reconciliation and review to ensure accurate knowledge of current/active medications, including asking our patients to inform us about any [id number] medications or herbal remedies/nutritional supplements/alternative remedies. 2. A review to specifically ensure our patients have had annual screening for screening for depression, screening for tobacco use, and screening for unhealthy alcohol use. For concerning screenings had a discussion with the patient, provided patient education, and recommended follow-up with primary care provider when appropriate. If patient noted with a risk of falling, they received education on strength, gait, and balance training to prevent future risk of falling. Portions of this note may have been carried over from the previous visit and updated as appropriate. Please note this office utilizes paper charting in addition to the electronic medical record. A list of current medications, vitals, and PMH is available there as the clinical staff outside of myself do not have access to [employer] charting during the clinic day operations. As part of providing quality comprehensive care the current medications, vitals, and PMH were reviewed in the paper chart. 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 Patient has completed >6 weeks of guided home exercise program and/or formal physical therapy program without relief of their symptoms.? The Oswestry Disability Index was completed, and the patient scored a 20%.? MDP discussed and ordered refill/continue tylenol #3 prn moderate to severe pain 50 tabs to last 30 days encouraged baclofen 10mg daily prn pain/spasms f/u if pain persists, can offer left L4-5 L5-S1 TFESI under fluoroscopy
== END 2025-04-29 09:20 | disposition home or self-care (01) ==
LOC: PM 09:19
PROVIDERS: PCP Family Medicine; Visit Provider Nurse Practitioner
DX: M51.360 Other intervertebral disc degeneration, lumbar region with discogenic back pain only (principal); Z79.891 Long term (current) use of opiate analgesic
CPT/HCPCS: G0463